=== PATIENT | male | born 1955 | race African-American/Black ===

== ENCOUNTER 2017-11-21 15:08 | Inpatient (IN) | payer OTHER ==
[~2017-11-21] VITALS: Ht 170.2 cm; Wt 74.4 kg
[~2017-11-21 15:08] MED LIST: AMLO10 PO; BUSP10TA PO; CYAN100017 PO; DOCU1CAP39 PO; FLUP1INJ IM; LISI-515 PO; METF500T PO; PANT40TA3 PO; POLY17S PO; POLY99.0 EACH EYE; PRAD150C PO; PRAV80TA2 PO; PROP80TA PO; RISP3 PO; TRIH2 PO
[2017-11-21 15:14] VITALS: BP 147/87; PULSE 95; RESP 17; TEMP 99.3; O2SAT 98
--- NOTE | 2017-11-21 15:39 | PD ---
HPI Chief Complaint: Altered Mental Status Time Seen by Provider: 15:27 Travel History International Travel<30 days: No Contact w/Intl Traveler<30days: No Traveled to known affect area: No History of Present Illness HPI [age]-year-old male with history of CAD, hypertension, COPD, A. fib, diabetes, presents to the emergency department from his senior living facility for evaluation of altered mental status. Patient has not been acting himself for the last 2-3 days. He has had less energy. He is more confused. Patient overall is a poor historian and does not recall any difference in his mentation. He knows that he isn't atonal at the hospital. He can tell since falling. He states he's been tired but really overall has no complaints. Denies any chest pain or tightness. No difficulty breathing. No report of recent fevers or chills. Patient has no other symptoms to report at this time. PFSH Past Medical History Anemia: Yes Arthritis: Yes Asthma: No Heart Rhythm Problems: Yes (a fib) Cancer: Yes (prostate ) Cardiovascular Problems: Yes High Cholesterol: Yes (TX WITH ZOCOR) Chemotherapy: Yes Chest Pain: No Congestive Heart Failure: No COPD: Yes Diabetes: Yes Diminished Hearing: No Endocrine: Yes GERD: Yes Genitourinary: Yes Hypertension: Yes Immune Disorder: No Implanted Vascular Access Dvce: No Kidney Stones: Yes Musculoskeletal: Yes Neurologic: No Psychiatric: No Reproductive: No Respiratory: Yes Sleep Apnea: No Past Surgical History Appendectomy: Yes Other Surgery: Yes (appendectomy and hernia repair) Social History Alcohol Use: No (unable to obtain ) Tobacco Use: No (unable to obtain ) Substance Use: No (unable to obtain ) Allergies-Medications (Allergen,Severity, Reaction): Coded Allergies: aspirin (Unverified Allergy, Severe, 05/21/17) chlorpromazine (Unverified Allergy, Unknown, 05/21/17) haloperidol (Unverified Allergy, Unknown, 05/21/17) Per sister in - Anita Taylor [phone]. Per patient, she manages his medications and administration for him. Reported Meds & Prescriptions Reported Meds & Active Scripts Active Artificial Tears Opth Drops (Polyvinyl Alcohol) 1.4% Soln 1 Drop EACH EYE TID 30 Days Polyethylene Glycol 3350 Powder (Polyethylene Glycol) 17 Gm Pow 17 Gm PO DAILY 30 Days Dok (Docusate Sodium) 100 Mg Cap 100 Mg PO BID 30 Days Norvasc (Amlodipine Besylate) 10 Mg Tab 10 Mg PO DAILY 30 Days Pradaxa (Dabigatran) 150 Mg Cap 150 Mg PO BID 30 Days Pantoprazole (Pantoprazole Sodium) 40 Mg Tab 40 Mg PO DAILY 30 Days Lisinopril 20 Mg Tab 20 Mg PO DAILY 30 Days Propranolol (Propranolol HCl) 80 Mg Tab 80 Mg PO Q6HR 30 Days Risperdal (Risperidone) 3 Mg Tab 3 Mg PO HS 30 Days Reported Simvastatin 10 Mg Tab 10 Mg PO DAILY Trihexyphenidyl (Trihexyphenidyl HCl) 2 Mg Tab 2 Mg PO TID Metformin (Metformin HCl) 500 Mg Tab 500 Mg PO DAILY With a meal Tenormin (Atenolol) 50 Mg Tab 50 Mg PO BID Procardia XL (Nifedipine) 60 Mg Tab 60 Mg PO DAILY Lisinopril 5 Mg Tab 5 Mg PO DAILY Lexapro (Escitalopram Oxalate) 10 Mg Tab 10 Mg PO DAILY Fluphenazine Decanoate Inj (Fluphenazine Decanoate) 125 Mg/5 Ml Inj 25 Mg IM Q21D Buspirone (Buspirone HCl) 10 Mg Tab 10 Mg PO BID Metformin (Metformin HCl) 500 Mg Tab 500 Mg PO DAILY With a meal Pravastatin 80 Mg Tab 80 Mg PO HS Trihexyphenidyl (Trihexyphenidyl HCl) 2 Mg Tab 2 Mg PO TID Review of Systems Except as stated in HPI: all other systems reviewed are Neg Physical Exam Narrative GENERAL: Well-nourished male patient, sitting up in bed in no acute distress. SKIN: Focused skin assessment warm/dry. HEAD: Atraumatic. Normocephalic. EYES: Pupils equal and round. No scleral icterus. No injection or drainage. ENT: No nasal bleeding or discharge. Mucous membranes pink and moist. NECK: Trachea midline. No JVD. CARDIOVASCULAR: Elevated rate and irregular rhythm. RESPIRATORY: No accessory muscle use. Coarse throughout, diminished bases. Rales and crackles with inspiratory wheeze. Breath sounds equal bilaterally. GASTROINTESTINAL: Abdomen soft, non-tender, nondistended. Hepatic and splenic margins not palpable. MUSCULOSKELETAL: No obvious deformities. No clubbing. No cyanosis. No edema. NEUROLOGICAL: Awake and alert. No obvious cranial nerve deficits. Motor grossly within normal limits. Normal speech. Data Data Last Documented VS Vital Signs Date Time Temp Pulse Resp B/P (MAP) Pulse Ox O2 Delivery O2 Flow Rate FiO2 11/21/17 19:45 86 20 160/99 (119) 99 Nasal Cannula 2.00 11/21/17 16:07 21 11/21/17 15:14 99.3 Orders Orders Electrocardiogram (11/21/17 15:38) Complete Blood Count With Diff (11/21/17 15:38) Comprehensive Metabolic Panel (11/21/17 15:38) Prothrombin Time / Inr (Pt) (11/21/17 15:38) Act Partial Throm Time (Ptt) (11/21/17 15:38) Lactic Acid Sepsis Protocol (11/21/17 15:38) Lipase (11/21/17 15:38) Ckmb (Isoenzyme) Profile (11/21/17 15:38) Troponin I (11/21/17 15:38) Urinalysis - C+S If Indicated (11/21/17 15:38) Influenzae A/B Antigen (11/21/17 15:38) Blood Culture (11/21/17 15:38) Chest, Single Ap (11/21/17 15:38) Blood Glucose (11/21/17 15:38) Ecg Monitoring (11/21/17 15:38) Iv Access Insert/Monitor (11/21/17 15:38) Oximetry (11/21/17 15:38) Oxygen Administration (11/21/17 15:38) Methylprednisolone So Succ Inj (Solumedr (11/21/17 16:00) Albuterol-Ipratropium Neb (Duoneb Neb) (11/21/17 16:00) Ceftriaxone Inj (Rocephin Inj) (11/21/17 16:15) Azithromycin Inj (Zithromax Inj) (11/21/17 16:15) Sodium Chlorid 0.9% 500 Ml Inj (Ns 500 M (11/21/17 16:30) CKMB (11/21/17 15:45) CKMB% (11/21/17 15:45) Ct Thorax/ Chest W Iv Contrast (11/21/17 ) Iohexol 350 Inj (Omnipaque 350 Inj) (11/21/17 19:04) Labs Laboratory Tests Test 11/21/17 15:45 11/21/17 16:20 11/21/17 19:23 White Blood Count 12.5 TH/MM3 Red Blood Count 3.47 MIL/MM3 Hemoglobin 9.5 GM/DL Hematocrit 29.3 % Mean Corpuscular Volume 84.4 FL Mean Corpuscular Hemoglobin 27.4 PG Mean Corpuscular Hemoglobin Concent 32.4 % Red Cell Distribution Width 16.1 % Platelet Count 1163 TH/MM3 Mean Platelet Volume 6.3 FL Neutrophils (%) (Auto) 79.1 % Lymphocytes (%) (Auto) 10.4 % Monocytes (%) (Auto) 9.4 % Eosinophils (%) (Auto) 0.3 % Basophils (%) (Auto) 0.8 % Neutrophils # (Auto) 9.9 TH/MM3 Lymphocytes # (Auto) 1.3 TH/MM3 Monocytes # (Auto) 1.2 TH/MM3 Eosinophils # (Auto) 0.0 TH/MM3 Basophils # (Auto) 0.1 TH/MM3 CBC Comment DIFF FINAL Differential Comment Prothrombin Time 11.7 SEC Prothromb Time International Ratio 1.2 RATIO Activated Partial Thromboplast Time 26.8 SEC Blood Urea Nitrogen 13 MG/DL Creatinine 1.31 MG/DL Random Glucose 293 MG/DL Total Protein 6.7 GM/DL Albumin 2.2 GM/DL Calcium Level 8.3 MG/DL Alkaline Phosphatase 152 U/L Aspartate Amino Transf (AST/SGOT) 22 U/L Alanine Aminotransferase (ALT/SGPT) 17 U/L Total Bilirubin 0.2 MG/DL Sodium Level 135 MEQ/L Potassium Level 3.7 MEQ/L Chloride Level 100 MEQ/L Carbon Dioxide Level 22.9 MEQ/L Anion Gap 12 MEQ/L Estimat Glomerular Filtration Rate 68 ML/MIN Lactic Acid Level 4.2 mmol/L Total Creatine Kinase 162 U/L Creatine Kinase MB 2.8 NG/ML Troponin I LESS THAN 0.02 NG/ML Lipase 185 U/L Urine Color YELLOW Urine Turbidity CLEAR Urine pH 6.0 Urine Specific [place] 1.021 Urine Protein 30 mg/dL Urine Glucose (UA) NEG mg/dL Urine Ketones NEG mg/dL Urine Occult Blood NEG Urine Nitrite NEG Urine Bilirubin NEG Urine Urobilinogen LESS THAN 2.0 MG/DL Urine Leukocyte Esterase NEG Urine RBC 1 /hpf Urine WBC 4 /hpf Urine Squamous Epithelial Cells <1 /hpf Urine Hyaline Casts 22 /lpf Urine Mucus MANY /lpf Microscopic Urinalysis Comment CULT NOT INDICATED MDM Medical Decision Making Medical Screen Exam Complete: Yes Emergency Medical Condition: Yes Medical Record Reviewed: Yes Differential Diagnosis Pneumonia versus influenza versus neoplasm versus electrolyte abnormality versus CHF versus sepsis versus UTI Narrative Course 62-year-old male presents to emergency department for evaluation of altered mental status. Patient appears nontoxic. He does have coarse breath sounds throughout with scattered rales and rhonchi inspiratory wheeze. Patient is given Solu-Medrol and DuoNeb treatments. He has a low-grade temperature and is mildly tachycardic. Laboratory Tests Test 11/21/17 15:45 11/21/17 16:20 11/21/17 19:23 White Blood Count 12.5 TH/MM3 Red Blood Count 3.47 MIL/MM3 Hemoglobin 9.5 GM/DL Hematocrit 29.3 % Mean Corpuscular Volume 84.4 FL Mean Corpuscular Hemoglobin 27.4 PG Mean Corpuscular Hemoglobin Concent 32.4 % Red Cell Distribution Width 16.1 % Platelet Count 1163 TH/MM3 Mean Platelet Volume 6.3 FL Neutrophils (%) (Auto) 79.1 % Lymphocytes (%) (Auto) 10.4 % Monocytes (%) (Auto) 9.4 % Eosinophils (%) (Auto) 0.3 % Basophils (%) (Auto) 0.8 % Neutrophils # (Auto) 9.9 TH/MM3 Lymphocytes # (Auto) 1.3 TH/MM3 Monocytes # (Auto) 1.2 TH/MM3 Eosinophils # (Auto) 0.0 TH/MM3 Basophils # (Auto) 0.1 TH/MM3 CBC Comment DIFF FINAL Differential Comment Prothrombin Time 11.7 SEC Prothromb Time International Ratio 1.2 RATIO Activated Partial Thromboplast Time 26.8 SEC Blood Urea Nitrogen 13 MG/DL Creatinine 1.31 MG/DL Random Glucose 293 MG/DL Total Protein 6.7 GM/DL Albumin 2.2 GM/DL Calcium Level 8.3 MG/DL Alkaline Phosphatase 152 U/L Aspartate Amino Transf (AST/SGOT) 22 U/L Alanine Aminotransferase (ALT/SGPT) 17 U/L Total Bilirubin 0.2 MG/DL Sodium Level 135 MEQ/L Potassium Level 3.7 MEQ/L Chloride Level 100 MEQ/L Carbon Dioxide Level 22.9 MEQ/L Anion Gap 12 MEQ/L Estimat Glomerular Filtration Rate 68 ML/MIN Total Creatine Kinase 162 U/L Creatine Kinase MB 2.8 NG/ML Troponin I LESS THAN 0.02 NG/ML Lipase 185 U/L Urine Color YELLOW Urine Turbidity CLEAR Urine pH 6.0 Urine Specific [place] 1.021 Urine Protein 30 mg/dL Urine Glucose (UA) NEG mg/dL Urine Ketones NEG mg/dL Urine Occult Blood NEG Urine Nitrite NEG Urine Bilirubin NEG Urine Urobilinogen LESS THAN 2.0 MG/DL Urine Leukocyte Esterase NEG Urine RBC 1 /hpf Urine WBC 4 /hpf Urine Squamous Epithelial Cells <1 /hpf Urine Hyaline Casts 22 /lpf Urine Mucus MANY /lpf Microscopic Urinalysis Comment CULT NOT INDICATED Hait[place] lactic acid is 4.6. He has slightly elevated white count 12.5. Chest x-ray shows a large right pleural effusion with associated diffuse airspace disease throughout the right lung. There is a 4.6 cm masslike opacity in the right upper lung zone in the region of smaller mass noted on prior examination. I have discussed the patient with my attending physician who has reviewed the findings and assess the patient. A call has some place to [facility] for admission. I spoke with Dr. Tejada who requests that I admit the patient to the intensive this. I spoke with Dr. angulo, research manufacturing operator who states the patient does not meet intensive care criteria and the patient will need to be admitted to [facility]. Dr. Tejada is made aware of this and requests that I removed [address] imaging and consult IR if necessary emergently prior to contacting hospitalist for admission. Last Impressions Chest X-Ray 11/21/17 1538 Signed Impressions: Service Date/Time: November 15:52 - CONCLUSION: 1. Large right pleural effusion with associated diffuse airspace disease throughout the right lung. 2. 4.6 cm masslike opacity in the right upper lung zone in region of smaller mass noted on prior exam. This likely reflects interval enlargement of this mass. Consider CT examination for further evaluation as indicated. Walter Covarrubias MD Chest CT 11/21/17 0000 Signed Impressions: Service Date/Time: November 18:56 - CONCLUSION: 1. Progression of right hilar mass since July 2016 with encasement of the central bronchi as above and complete obstruction of the right upper lobe bronchus. There is also compression of the superior vena cava and azygos vein and moderate right effusion and partial atelectasis of the right lung as above. Small pericardial effusion. Chencho Stevenson MD CT imaging is reviewed. Patient remained stable. I do not think emergent drainage of this effusion is necessary. Call placed to [facility] hospitalist for admission. Sepsis Criteria SIRS Criteria (2 or more): Heart rate over 90, WBC > 86368, < 4000 or > 10% bands Sepsis Criteria (SIRS+source): Infect source susp/known Severe Sepsis (+one): Lactate >2 Diagnosis Primary Impression: Altered mental status Qualified Codes: R41.0 - Disorientation, unspecified Additional Impressions: Pleural effusion, right Pulmonary mass Severe sepsis Admitting Information Admitting Physician Requests: Admit Condition: Stable Neena Lopez Nov 21, 2017 15:39
[2017-11-21 15:55] VITALS: O2SAT 100
[2017-11-21] MEDS ORDERED: methylPREDNISolone SOD SUCC 125 MG/2 ML VIAL IV PUSH ONE (16:00)
[2017-11-21] MEDS: RESP: ALBUTEROL 2.5 MG/IPRATROPIUM 0.5 MG NEB (SCH) INH (16:06)
[2017-11-21 16:07] VITALS: O2SAT 98
[2017-11-21] MEDS ORDERED: cefTRIAXone INJ 1,000 MG in SODIUM CHLORIDE 0.9% INJ 100 ML IV ONE (16:15)
[2017-11-21] MEDS ORDERED: AZITHROMYCIN INJ 500 MG in SODIUM CHLOR 0.9% 250 ML INJ 250 ML IV ONE (16:15)
[2017-11-21 16:26] LABS: AUTOMATED NEUTROPHIL # 9.9 TH/MM3 (1.8-7.7); BASOPHIL # 0.1 TH/MM3 (0-0.2); BASOPHIL % 0.8 % (0.0-2.0); EOSINOPHIL % 0.3 % (0.0-4.0); HEMATOCRIT 29.3 % (39.0-51.0); HEMOGLOBIN 9.5 GM/DL (13.0-17.0); LYMPH % 10.4 % (9.0-44.0); LYMPHOCYTE # 1.3 TH/MM3 (1.0-4.8); MEAN CELL VOLUME 84.4 FL (80.0-100.0); MEAN CORPUSCULAR HEMOGLOBIN 27.4 PG (27.0-34.0); MEAN CORPUSCULAR HGB CONC 32.4 % (32.0-36.0); MEAN PLATELET VOLUME 6.3 FL (7.0-11.0); MONO % 9.4 % (0.0-8.0); MONOCYTE # 1.2 TH/MM3 (0-0.9); NEUT % 79.1 % (16.0-70.0); PLATELET COUNT 1163 TH/MM3 (150-450); RED BLOOD COUNT 3.47 MIL/MM3 (4.50-5.90); RED CELL DISTRIBUTION WIDTH 16.1 % (11.6-17.2); WHITE BLOOD COUNT 12.5 TH/MM3 (4.0-11.0)
[2017-11-21] MEDS ORDERED: SODIUM CHLORID 0.9% 500 ML INJ 500 ML IV ONE (16:30)
--- NOTE | 2017-11-21 16:35 | RADRPT ---
EXAM DATE/TIME: 11/21/2017 15:52 [facility] COMPARISON: CHEST SINGLE AP, July 27, 2016, 5:19. INDICATIONS : Chest pain MEDICAL HISTORY : Hypertension. Diabetes mellitus type II. Chronic obstructive pulmonary d isease SURGICAL HISTORY : CABG. ENCOUNTER: Initial ACUITY: 1 day PAIN SCORE: 8/10 LOCATION: chest FINDINGS: Large right pleural effusion with associated diffuse patchy airspace disease throughout the right mo g. There is a masslike opacity in the right upper lung zone measuring 4.6 cm. Left lung is clear. Car diomediastinal contours are within normal limits. Remainder the exam is unchanged. CONCLUSION: 1. Large right pleural effusion with associated diffuse airspace disease throughout the right lung. 2. 4.6 cm masslike opacity in the right upper lung zone in region of smaller mass noted on prior exam . This likely reflects interval enlargement of this mass. Consider CT examination for further evaluat ion as indicated. Walter Covarrubias MD on November 21, 2017 at 16:30 Board Certified Radiologist. This report was verified electronically.
[2017-11-21 16:43] LABS: INTERNATIONAL NORMALIZED RATIO 1.2 RATIO; PROTHROMBIN TIME - PATIENT 11.7 SEC (9.8-11.6)
[2017-11-21 16:50] LABS: ALBUMIN 2.2 GM/DL (3.4-5.0); AST (GOT) 22 U/L (15-37); BICARBONATE 22.9 MEQ/L (21.0-32.0); BLOOD UREA NITROGEN 13 MG/DL (7-18); CALCIUM 8.3 MG/DL (8.5-10.1); CHLORIDE 100 MEQ/L (98-107); CREATININE 1.31 MG/DL (0.60-1.30); GLOMERULAR FILTRATION RATE 68 ML/MIN (>89); GLUCOSE,RANDOM 293 MG/DL (74-106); SODIUM (NA) 135 MEQ/L (136-145)
[2017-11-21 16:51] LABS: ALT (GPT) 17 U/L (12-78); LACTIC ACID SEPSIS PROTOCOL 4.2 mmol/L (0.4-2.0)
[2017-11-21 16:55] LABS: ALKALINE PHOSPHATASE 152 U/L (45-117); TOTAL BILIRUBIN ADULT 0.2 MG/DL (0.2-1.0); TOTAL PROTEIN 6.7 GM/DL (6.4-8.2); TROPONIN I LESS THAN 0.02 NG/ML (0.02-0.05)
[2017-11-21 17:01] LABS: BILIRUBIN, URINE NEG (NEG); BLOOD, URINE NEG (NEG); GLUCOSE,URINE NEG (NEG); HYALINE CAST, URINE 22 /lpf (RARE); KETONE, URINE NEG (NEG); MUCUS URINE MANY /lpf (OCC); NITRITE,URINE NEG (NEG); SQUAMOUS EPITHELIAL CELL URINE <1 /hpf (0-5); URINE COLOR YELLOW (YELLW/STRAW); URINE LEUKOCYTE ESTERASE NEG (NEG)
[2017-11-21 18:01] VITALS: BP 153/83; PULSE 93; RESP 17; O2SAT 96
--- NOTE | 2017-11-21 18:20 | PD ---
Physical Exam Date Seen by Provider: Nov 21, 2017 Time Seen by Provider: 16:00 Narrative I, Dr. Whiteside, have reviewed the advance practice practitioner's documentation and am in agreement, met with the patient face to face, made the diagnosis, and the medical decision making was done by me. *My assessment and Findings: Patient seen and evaluated with nurse practitioner , please see nurse practitioner for further details. He apparently has been more disoriented at his facility, and on evaluation he has significant wheezing , decreased breath sounds on the right compared to the left. He is not able to give me much further history. EKG shows sinus rhythm with no signs of acute ST elevations or depressions. Laboratory Tests Test 11/21/17 15:45 11/21/17 16:20 White Blood Count 12.5 TH/MM3 (4.0-11.0) Red Blood Count 3.47 MIL/MM3 (4.50-5.90) Hemoglobin 9.5 GM/DL (13.0-17.0) Hematocrit 29.3 % (39.0-51.0) Platelet Count 1163 TH/MM3 (150-450) Mean Platelet Volume 6.3 FL (7.0-11.0) Neutrophils (%) (Auto) 79.1 % (16.0-70.0) Monocytes (%) (Auto) 9.4 % (0.0-8.0) Neutrophils # (Auto) 9.9 TH/MM3 (1.8-7.7) Monocytes # (Auto) 1.2 TH/MM3 (0-0.9) Prothrombin Time 11.7 SEC (9.8-11.6) Creatinine 1.31 MG/DL (0.60-1.30) Random Glucose 293 MG/DL (74-106) Albumin 2.2 GM/DL (3.4-5.0) Calcium Level 8.3 MG/DL (8.5-10.1) Alkaline Phosphatase 152 U/L (45-117) Sodium Level 135 MEQ/L (136-145) Estimat Glomerular Filtration Rate 68 ML/MIN (>89) Lactic Acid Level 4.2 mmol/L (0.4-2.0) Troponin I LESS THAN 0.02 NG/ML Urine Protein 30 mg/dL (NEG-TRACE) Urine Mucus MANY /lpf (OCC) Last 24 hours Impressions Chest X-Ray 11/21/17 1538 Signed Impressions: Service Date/Time: November 15:52 - CONCLUSION: 1. Large right pleural effusion with associated diffuse airspace disease throughout the right lung. 2. 4.6 cm masslike opacity in the right upper lung zone in region of smaller mass noted on prior exam. This likely reflects interval enlargement of this mass. Consider CT examination for further evaluation as indicated. Walter Covarrubias MD There is a large right-sided pleural effusion. There is a questionable masslike opacity in the right upper lung zone, and CAT scan was ordered for further evaluation. Patient has significant leukocytosis. IV fluids and antibiotics were ordered for the patient for concerns of pneumonia and parapneumonic effusion. Patient will need further evaluation. At this point, plan would be to admit the patient. Case was briefly discussed with Dr. Guevara of hospitalist service who states that he would consider ICU admit. Case was also discussed with Dr. Garvey but he at this time defers to hospitalist admission rather than ICU admission since patient appears fairly stable otherwise. Plan to admit the patient after CAT scan reveals any further pathology. Data Data Last Documented VS Vital Signs Date Time Temp Pulse Resp B/P (MAP) Pulse Ox O2 Delivery O2 Flow Rate FiO2 11/21/17 18:01 93 17 153/83 (106) 96 Room Air 11/21/17 16:07 21 11/21/17 15:14 99.3 Orders Orders Electrocardiogram (11/21/17 15:38) Complete Blood Count With Diff (11/21/17 15:38) Comprehensive Metabolic Panel (11/21/17 15:38) Prothrombin Time / Inr (Pt) (11/21/17 15:38) Act Partial Throm Time (Ptt) (11/21/17 15:38) Lactic Acid Sepsis Protocol (11/21/17 15:38) Lipase (11/21/17 15:38) Ckmb (Isoenzyme) Profile (11/21/17 15:38) Troponin I (11/21/17 15:38) Urinalysis - C+S If Indicated (11/21/17 15:38) Influenzae A/B Antigen (11/21/17 15:38) Blood Culture (11/21/17 15:38) Chest, Single Ap (11/21/17 15:38) Blood Glucose (11/21/17 15:38) Ecg Monitoring (11/21/17 15:38) Iv Access Insert/Monitor (11/21/17 15:38) Oximetry (11/21/17 15:38) Oxygen Administration (11/21/17 15:38) Methylprednisolone So Succ Inj (Solumedr (11/21/17 16:00) Albuterol-Ipratropium Neb (Duoneb Neb) (11/21/17 16:00) Ceftriaxone Inj (Rocephin Inj) (11/21/17 16:15) Azithromycin Inj (Zithromax Inj) (11/21/17 16:15) Sodium Chlorid 0.9% 500 Ml Inj (Ns 500 M (11/21/17 16:30) CKMB (11/21/17 15:45) CKMB% (11/21/17 15:45) Ct Thorax/ Chest W Iv Contrast (11/21/17 ) Iohexol 350 Inj (Omnipaque 350 Inj) (11/21/17 19:04) Labs Laboratory Tests Test 11/21/17 15:45 11/21/17 16:20 White Blood Count 12.5 TH/MM3 Red Blood Count 3.47 MIL/MM3 Hemoglobin 9.5 GM/DL Hematocrit 29.3 % Mean Corpuscular Volume 84.4 FL Mean Corpuscular Hemoglobin 27.4 PG Mean Corpuscular Hemoglobin Concent 32.4 % Red Cell Distribution Width 16.1 % Platelet Count 1163 TH/MM3 Mean Platelet Volume 6.3 FL Neutrophils (%) (Auto) 79.1 % Lymphocytes (%) (Auto) 10.4 % Monocytes (%) (Auto) 9.4 % Eosinophils (%) (Auto) 0.3 % Basophils (%) (Auto) 0.8 % Neutrophils # (Auto) 9.9 TH/MM3 Lymphocytes # (Auto) 1.3 TH/MM3 Monocytes # (Auto) 1.2 TH/MM3 Eosinophils # (Auto) 0.0 TH/MM3 Basophils # (Auto) 0.1 TH/MM3 CBC Comment DIFF FINAL Differential Comment Prothrombin Time 11.7 SEC Prothromb Time International Ratio 1.2 RATIO Activated Partial Thromboplast Time 26.8 SEC Blood Urea Nitrogen 13 MG/DL Creatinine 1.31 MG/DL Random Glucose 293 MG/DL Total Protein 6.7 GM/DL Albumin 2.2 GM/DL Calcium Level 8.3 MG/DL Alkaline Phosphatase 152 U/L Aspartate Amino Transf (AST/SGOT) 22 U/L Alanine Aminotransferase (ALT/SGPT) 17 U/L Total Bilirubin 0.2 MG/DL Sodium Level 135 MEQ/L Potassium Level 3.7 MEQ/L Chloride Level 100 MEQ/L Carbon Dioxide Level 22.9 MEQ/L Anion Gap 12 MEQ/L Estimat Glomerular Filtration Rate 68 ML/MIN Lactic Acid Level 4.2 mmol/L Total Creatine Kinase 162 U/L Creatine Kinase MB 2.8 NG/ML Troponin I LESS THAN 0.02 NG/ML Lipase 185 U/L Urine Color YELLOW Urine Turbidity CLEAR Urine pH 6.0 Urine Specific [place] 1.021 Urine Protein 30 mg/dL Urine Glucose (UA) NEG mg/dL Urine Ketones NEG mg/dL Urine Occult Blood NEG Urine Nitrite NEG Urine Bilirubin NEG Urine Urobilinogen LESS THAN 2.0 MG/DL Urine Leukocyte Esterase NEG Urine RBC 1 /hpf Urine WBC 4 /hpf Urine Squamous Epithelial Cells <1 /hpf Urine Hyaline Casts 22 /lpf Urine Mucus MANY /lpf Microscopic Urinalysis Comment CULT NOT INDICATED MDM Medical Record Reviewed: Yes Supervised Visit with JACYEE: Yes Diagnosis Primary Impression: Altered mental status Additional Impressions: Lactic acidosis Pleural effusion, right Admitting Information Admitting Physician Requests: Admit Juan Carlos Whiteside MD Nov 21, 2017 18:20
[2017-11-21] MEDS ORDERED: TRIH2 PO (18:38)
[2017-11-21] MEDS ORDERED: ATEN1TAB74 PO (18:38)
[2017-11-21] MEDS ORDERED: NIFE1TAB86 PO (18:38)
[2017-11-21] MEDS ORDERED: SIMV10TA PO (18:38)
[2017-11-21] MEDS ORDERED: METF500T PO (18:38)
[2017-11-21] MEDS ORDERED: LISI-519 PO (18:38)
[2017-11-21] MEDS ORDERED: LEXA10TA PO (18:38)
[2017-11-21] MEDS ORDERED: IOHEXOL 350 MG/ML 10 ML VIAL (for RAD DIAG) IVCONTRAST ONE (19:04)
--- NOTE | 2017-11-21 19:15 | RADRPT ---
EXAM DATE/TIME: 11/21/2017 18:56 [facility] COMPARISON: CT PULMONARY ANGIOGRAM, July 24, 2016, 9:42. INDICATIONS : Short of breath, pleural effusion. IV CONTRAST: 65 cc Omnipaque 350 (iohexol) IV RADIATION DOSE: 8.63 CTDIvol (mGy) MEDICAL HISTORY : Cardiovascular disease. Hypertension. Chronic obstructive pulmonary disease.Diabetes, Prostate cancer . SURGICAL HISTORY : None. ENCOUNTER: Initial ACUITY: 3 days PAIN SCALE: 7/10 LOCATION: Bilateral chest TECHNIQUE: Volumetric scanning of the chest was performed. Using automated exposure control and adjustment of t he mA and/or kV according to patient size, radiation dose was kept as low as reasonably achievable to obtain optimal diagnostic quality images. DICOM format image data is available electronically for review and comparison. Follow-up recommendations for detected pulmonary nodules are based at a minimum on nodule size and pa tient risk factors according to Fleischner Society Guidelines. FINDINGS: Comparison is July 2016. There is a large mass with epicenter in the right hilar region measuring up to 9.3 x 5.9 cm completely encasing the right mainstem bronchus and also the lobar bronchi with ob struction of the right upper lobe bronchus and marked narrowing of the middle lobe and lower lobe bro nchi on the right. The mass crosses midline and partially encases the left mainstem bronchus and ante rior aspect of the aorta. There is progression of tumor since July 2016. Moderate to severe mojica ry calcifications. There is a moderate-sized right pleural effusion with partial atelectasis of the right lung especiall y right upper lobe. Left lung remains relatively clear. There is compression on the superior vena cava and azygos vein but they do not occlude the only obstr ucted. No acute findings in the upper abdomen. CONCLUSION: 1. Progression of right hilar mass since July 2016 with encasement of the central bronchi as above and complete obstruction of the right upper lobe bronchus. There is also compression of the superior vena cava and azygos vein and moderate right effusion and partial atelectasis of the right lung as a tom. Small pericardial effusion. Chencho Stevenson MD on November 21, 2017 at 19:08 Board Certified Radiologist. This report was verified electronically.
[2017-11-21 19:45] VITALS: BP 160/99; PULSE 86; RESP 20; O2SAT 99
--- NOTE | 2017-11-21 23:28 | HHI.HP ---
[facility] Unknown Admission Diagnosis AMS; R Pleural effusion; R lung mass Diagnoses: Travel History International Travel<30 Days: No Contact w/Intl Traveler <30 Da: No Traveled to Known Affected Are: No History of Present Illness History from ER communication, patient himself, and review of medical records. Patient states that he was brought to hospital because he was not where he used to be. He has been confused. He reports he lives at [facility]. On specific review of system, patient reports of shortness of breath for 1 week duration. Reports he has been coughing a lot. Subjective fevers and chills. Sputum was yellow in color. Vomited twice in the past one week. No diarrhea. No blood in his stool or urine. Denies any falls or syncope. Patient however has baseline schizoaffective disorder per records. When asked about his medical conditions history, he really was not able to give the true history. Review of Systems ROS Limitations: Poor Historian Except as stated in HPI: all other systems reviewed are Neg Past Family Social History Past Medical History Hypertension Diabetes COPD Schizoaffective disorder Hyperlipidemia Dementia Past Surgical History Appendectomy Hernia repair Allergies: Coded Allergies: aspirin (Unverified Allergy, Severe, 05/21/17) chlorpromazine (Unverified Allergy, Unknown, 05/21/17) haloperidol (Unverified Allergy, Unknown, 05/21/17) Per sister in - Anita Taylor [phone]. Per patient, she manages his medications and administration for him. Family History none that he knows of Social History used to smoke, quit 14yrs ago denies etoh or drug abuse Physical Exam Vital Signs Vital Signs Date Time Temp Pulse Resp B/P (MAP) Pulse Ox O2 Delivery O2 Flow Rate FiO2 11/21/17 19:45 86 20 160/99 (119) 99 Nasal Cannula 2.00 11/21/17 18:01 93 17 153/83 (106) 96 Room Air 11/21/17 16:07 98 21 11/21/17 15:55 100 Room Air 11/21/17 15:55 100 Room Air 2/15/18 15:20 98 Room Air 11/21/17 15:14 99.3 95 17 147/87 (658) 98 Physical Exam GENERAL: This is a middle-aged man, looks quite comfortable except that he is constantly coughing. Saturating 95% on 2 L nasal cannula. Somewhat slow to respond but is able to give some history. SKIN: No rashes, ecchymoses or lesions. Cool and dry. HEAD: Atraumatic. Normocephalic. No temporal or scalp tenderness. EYES: No scleral icterus. No injection or drainage. ENT: Nose without bleeding, purulent drainage or septal hematoma. Airway patent. NECK: Trachea midline. No JVD Supple, nontender, no meningeal signs. CARDIOVASCULAR: Regular rate and rhythm without murmurs, gallops, or rubs. RESPIRATORY: Decreased air entry on the left. No laurie rales or wheezing. GASTROINTESTINAL: Abdomen soft, non-tender, nondistended. No guarding. MUSCULOSKELETAL: Extremities without clubbing, cyanosis, or edema. No calf tenderness. Normal speech though difficult to understand Laboratory Laboratory Tests Test 11/21/17 15:45 11/21/17 16:20 11/21/17 19:23 White Blood Count 12.5 Red Blood Count 3.47 Hemoglobin 9.5 Hematocrit 29.3 Mean Corpuscular Volume 84.4 Mean Corpuscular Hemoglobin 27.4 Mean Corpuscular Hemoglobin Concent 32.4 Red Cell Distribution Width 16.1 Platelet Count 1163 Mean Platelet Volume 6.3 Neutrophils (%) (Auto) 79.1 Lymphocytes (%) (Auto) 10.4 Monocytes (%) (Auto) 9.4 Eosinophils (%) (Auto) 0.3 Basophils (%) (Auto) 0.8 Neutrophils # (Auto) 9.9 Lymphocytes # (Auto) 1.3 Monocytes # (Auto) 1.2 Eosinophils # (Auto) 0.0 Basophils # (Auto) 0.1 CBC Comment DIFF FINAL Differential Comment Prothrombin Time 11.7 Prothromb Time International Ratio 1.2 Activated Partial Thromboplast Time 26.8 Blood Urea Nitrogen 13 Creatinine 1.31 Random Glucose 293 Total Protein 6.7 Albumin 2.2 Calcium Level 8.3 Alkaline Phosphatase 152 Aspartate Amino Transf (AST/SGOT) 22 Alanine Aminotransferase (ALT/SGPT) 17 Total Bilirubin 0.2 Sodium Level 135 Potassium Level 3.7 Chloride Level 100 Carbon Dioxide Level 22.9 Anion Gap 12 Estimat Glomerular Filtration Rate 68 Lactic Acid Level 4.2 1.9 Total Creatine Kinase 162 Creatine Kinase MB 2.8 Troponin I LESS THAN 0.02 Lipase 185 Urine Color YELLOW Urine Turbidity CLEAR Urine pH 6.0 Urine Specific [place] 1.021 Urine Protein 30 Urine Glucose (UA) NEG Urine Ketones NEG Urine Occult Blood NEG Urine Nitrite NEG Urine Bilirubin NEG Urine Urobilinogen LESS THAN 2.0 Urine Leukocyte Esterase NEG Urine RBC 1 Urine WBC 4 Urine Squamous Epithelial Cells <1 Urine Hyaline Casts 22 Urine Mucus MANY Microscopic Urinalysis Comment CULT NOT INDICATED Date/Time Source Procedure Growth Status 11/21/17 15:55 Blood Peripheral Aerobic Blood Culture Pending Received 11/21/17 15:55 Blood Peripheral Anaerobic Blood Culture Pending Received 11/21/17 15:15 Nasal Washing Influenza Types A,B Antigen (CRISTHIAN) - Final NEGATIVE FOR FLU A AND B ANTIGEN.... Complete Result Diagram: 11/21/17 1545 11/21/17 1545 Imaging Last 48 hours Impressions Chest X-Ray 11/21/17 1538 Signed Impressions: Service Date/Time: November 15:52 - CONCLUSION: 1. Large right pleural effusion with associated diffuse airspace disease throughout the right lung. 2. 4.6 cm masslike opacity in the right upper lung zone in region of smaller mass noted on prior exam. This likely reflects interval enlargement of this mass. Consider CT examination for further evaluation as indicated. Walter Covarrubias MD Chest CT 11/21/17 0000 Signed Impressions: Service Date/Time: November 18:56 - CONCLUSION: 1. Progression of right hilar mass since July 2016 with encasement of the central bronchi as above and complete obstruction of the right upper lobe bronchus. There is also compression of the superior vena cava and azygos vein and moderate right effusion and partial atelectasis of the right lung as above. Small pericardial effusion. Chencho Stevenson MD Caprini VTE Risk Assessment Caprini VTE Risk Assessment: Mod/High Risk (score >= 2) Caprini Risk Assessment Model Point Value = 1 Point Value = 2 Point Value = 3 Point Value = 5 Age 41-60 Minor surgery BMI > 25 kg/m2 Swollen legs Varicose veins or History of unexplained or recurrent spontaneous Oral contraceptives or hormone replacement Sepsis (< 1 month) Serious lung disease, including pneumonia (< 1 month) Abnormal pulmonary function Acute myocardial infarction Congestive heart failure (< 1 month) History of inflammatory bowel disease Medical patient at bed rest Age 61-74 Arthroscopic surgery Major open surgery (> 45 min) Laparoscopic surgery (> 45 min) Malignancy Confined to bed (> 72 hours) Immobilizing plaster cast Central venous access Age >= 75 History of VTE Family history of VTE Factor V Leiden Prothrombin [id number] Lupus anticoagulant Anticardiolipin antibodies Elevated serum homocysteine Heparin-induced thrombocytopenia Other congenital or acquired thrombophilia Stroke (< 1 month) Elective arthroplasty Hip, pelvis, or leg fracture Acute spinal cord injury (< 1 month) Prophylaxis Regimen Total Risk Factor Score Risk Level Prophylaxis Regimen 0-1 Low Early ambulation 2 Moderate Order ONE of the following: *Sequential Compression Device (SCD) *Heparin 5000 units SQ BID 3-4 Higher Order ONE of the following medications: *Heparin 5000 units SQ TID *Enoxaparin/Lovenox 40 mg SQ daily (WT < 150 kg, CrCl > 30 mL/min) *Enoxaparin/Lovenox 30 mg SQ daily (WT < 150 kg, CrCl > 10-29 mL/min) *Enoxaparin/Lovenox 30 mg SQ BID (WT < 150 kg, CrCl > 30 mL/min) AND/OR *Sequential Compression Device (SCD) 5 or more Highest Order ONE of the following medications: *Heparin 5000 units SQ TID (Preferred with Epidurals) *Enoxaparin/Lovenox 40 mg SQ daily (WT < 150 kg, CrCl > 30 mL/min) *Enoxaparin/Lovenox 30 mg SQ daily (WT < 150 kg, CrCl > 10-29 mL/min) *Enoxaparin/Lovenox 30 mg SQ BID (WT < 150 kg, CrCl > 30 mL/min) AND *Sequential Compression Device (SCD) Assessment and Plan Assessment and Plan Impression: Pneumonia postobstructive. Right bronchus occlusion Right lung mass likely underlying malignancy Lactic acid acidosis Leukocytosis with left shift Hypertension Diabetes COPD Schizoaffective disorder Hyperlipidemia Dementia Plan: Oxygen supplementation. Patient received Rocephin and azithromycin in the ER. We'll start patient on Zosyn/ vanco Continue nebulizers. Oxygen supplementation Steroids IV And pulmonary consult. We'll follow lactic acid level with IV hydration. Hold metformin. We'll monitor fingersticks and sliding scale coverage. Pulmonary consult for possible bronchoscopy. DVT prophylaxis with Lovenox. Med reconciliation Discussed Condition With patient, nursing staff Physician Certification 2 Midnight Certification Type: Admission for Inpatient Services Order for Inpatient Services The services are ordered in accordance with Medicare regulations or non- Medicare payer requirements, as applicable. In the case of services not specified as inpatient-only, they are appropriately provided as inpatient services in accordance with the 2-midnight benchmark. Estimated LOS (days): 3 days is the estimated time the patient will need to remain in the hospital, assuming treatment plan goals are met and no additional complications. Post-Hospital Plan: Longterm/[facility] Dayron Mccollum MD Nov 21, 2017 23:28
[2017-11-21 23:35] VITALS: BP 171/90; PULSE 88; RESP 17; O2SAT 99
[2017-11-22] VITALS (11 sets, daily range): BP systolic 111–167; BP diastolic 73–102; PULSE 81–95; RESP 18–28; TEMP 97.4–98.9; O2SAT 92–100
[2017-11-22] MEDS ORDERED: Vancomycin Consult Pharmacy 1 EA OTHER SCH (00:15)
[2017-11-22] MEDS ORDERED: NALOXONE HCL 0.4 MG/ML AMP IV PUSH PRN (00:15)
[2017-11-22] MEDS ORDERED: SODIUM CHLORIDE 0.9% FLUSH 10 ML FLUSH IV FLUSH PRN (00:15)
[2017-11-22] MEDS ORDERED: SIMV20TA PO (01:04)
[2017-11-22] MEDS ORDERED: METF500T PO (01:04)
[2017-11-22] MEDS ORDERED: RISP3 PO (01:04)
[2017-11-22] MEDS: PANTOPRAZOLE SODIUM 40 MG VIAL IV PUSH SCH ×2 (01:54→12:25)
[2017-11-22] MEDS: PIPERACIL-TAZO 4.5 GM PREMIX 100 ML IV SCH ×4 (02:00→21:10)
[2017-11-22] MEDS ORDERED: VANCOMYCIN INJ 1,750 MG in SODIUM CHLORID 0.9% 500 ML INJ 500 ML IV ONE (03:00)
[2017-11-22] MEDS ORDERED: ENALAPRILAT 2.5 MG/2 ML VIAL IV PUSH PRN (03:15)
[2017-11-22] MEDS: RESP: ALBUTEROL 2.5 MG/IPRATROPIUM 0.5 MG NEB (SCH) NEB ×4 (04:00→21:09)
[2017-11-22] MEDS: methylPREDNISolone SOD SUCC 40 MG/1 ML VIAL IV PUSH SCH ×3 (06:21→21:09)
[2017-11-22] MEDS: SODIUM CHLORIDE 0.9% FLUSH 10 ML FLUSH IV FLUSH SCH ×2 (08:53→21:10)
[2017-11-22] MEDS: busPIRone HCL 10 MG TAB PO SCH ×2 (08:54→21:10)
[2017-11-22] MEDS: TRIHEXYPHENIDYL HCL 2 MG TAB PO SCH ×3 (08:54→17:25)
[2017-11-22] MEDS: ARTIFICIAL TEARS OPTH SOLN 15 ML BTL EACH EYE SCH ×3 (08:55→17:26)
[2017-11-22] MEDS: ENOXAPARIN SODIUM 40 MG/0.4 ML SYRINGE SQ SCH (08:55)
[2017-11-22] MEDS: DOCUSATE SODIUM 100 MG CAP PO SCH ×2 (08:56→21:10)
[2017-11-22] MEDS: NIFEdipine 60 MG SUSTAINED RELEASE TAB PO SCH (08:56)
[2017-11-22] MEDS: ATENOLOL 50 MG TAB PO SCH ×2 (08:56→21:10)
[2017-11-22] MEDS: LISINOPRIL 5 MG TAB PO SCH (08:56)
[2017-11-22] MEDS: ESCITALOPRAM OXALATE 10 MG TAB PO SCH (08:56)
[2017-11-22] MEDS ORDERED: PANTOPRAZOLE SOD 40 MG DELAYED RELEASE TAB PO SCH (09:00)
--- NOTE | 2017-11-22 12:49 | HHI.PR ---
Subjective Remarks Follow-up post obstructive pneumonia/sepsis/bacteremia/right lung mass 11/22/17-patient seen and examined, still with shortness of breath but denies any chest pain. Currently afebrile Objective Vitals Vital Signs Date Time Temp Pulse Resp B/P (MAP) Pulse Ox O2 Delivery O2 Flow Rate FiO2 11/22/17 08:46 99 Nasal Cannula 2.00 11/22/17 08:00 98.2 85 20 167/93 (117) 100 11/22/17 08:00 81 11/22/17 04:00 97.6 88 20 111/83 (92) 98 11/22/17 04:00 Nasal Cannula 2.00 11/22/17 03:47 90 11/22/17 01:52 88 11/22/17 01:38 Nasal Cannula 2.00 11/22/17 01:38 97.4 90 22 166/102 (123) 99 11/22/17 01:24 11/21/17 23:35 88 17 171/90 (117) 99 Nasal Cannula 2.00 11/21/17 19:45 86 20 160/99 (119) 99 Nasal Cannula 2.00 11/21/17 18:01 93 17 153/83 (106) 96 Room Air 11/21/17 16:07 98 21 11/21/17 15:55 100 Room Air 11/21/17 15:55 100 Room Air 11/21/17 15:20 98 Room Air 11/21/17 15:14 99.3 95 17 147/87 (107) 98 I/O 11/21/17 11/21/17 11/21/17 11/22/17 11/22/17 11/22/17 07:00 15:00 23:00 07:00 15:00 23:00 Intake Total 850 ml 940 ml Balance 850 ml 940 ml Intake Oral 390 ml IV Total 850 ml 550 ml # Voids 3 # Bowel Movements 0 Result Diagram: 11/21/17 1545 11/21/17 1545 Imaging Last Impressions Chest X-Ray 11/21/17 1538 Signed Impressions: Service Date/Time: November 15:52 - CONCLUSION: 1. Large right pleural effusion with associated diffuse airspace disease throughout the right lung. 2. 4.6 cm masslike opacity in the right upper lung zone in region of smaller mass noted on prior exam. This likely reflects interval enlargement of this mass. Consider CT examination for further evaluation as indicated. Walter Covarrubias MD Chest CT 11/21/17 0000 Signed Impressions: Service Date/Time: November 18:56 - CONCLUSION: 1. Progression of right hilar mass since July 2016 with encasement of the central bronchi as above and complete obstruction of the right upper lobe bronchus. There is also compression of the superior vena cava and azygos vein and moderate right effusion and partial atelectasis of the right lung as above. Small pericardial effusion. Chencho Stevenson MD Objective Remarks GENERAL: NAD SKIN: Warm and dry. HEAD: Normocephalic. EYES: No scleral icterus. No injection or drainage. NECK: Supple, trachea midline. No JVD or lymphadenopathy. CARDIOVASCULAR: Regular rate and rhythm without murmurs, gallops, or rubs. RESPIRATORY: Breath sounds decrease R>L. No accessory muscle use. GASTROINTESTINAL: Abdomen soft, non-tender, nondistended. MUSCULOSKELETAL: No cyanosis, or edema. BACK: Nontender without obvious deformity. No CVA tenderness. A/P Problem List: (1) Bacteremia due to Gram-positive bacteria ICD Code: R78.81 - Bacteremia (2) Postobstructive pneumonia ICD Code: J18.9 - Pneumonia, unspecified organism (3) Pulmonary mass ICD Code: R91.8 - Other nonspecific abnormal finding of lung field Status: Acute (4) Pleural effusion, right ICD Code: J90 - Pleural effusion, not elsewhere classified Status: Acute (5) Severe sepsis ICD Code: A41.9 - Sepsis, unspecified organism; R65.20 - Severe sepsis without septic shock Status: Acute Assessment and Plan 62-year-old man with Severe sepsis Pneumonia postobstructive. Currently on IV vancomycin and Zosyn and culture report [id number] cocci Currently on vancomycin and Zosyn Consult infectious disease specialist Repeat blood culture Right bronchus occlusion Right lung mass likely underlying malignancy Patient with a known history of right lung mass, seen by pulmonary medicine back in 2015 however biopsy was not considered at a time per pulmonary medicine Pulmonary medicine consultation pending Moderate right Pleural effusion Consider US guided thoracentesis Lactic acid acidosis Resolved COPD exacerbation with respiratory failure Continue with IV Solu-Medrol however change to every 8 hour, continue DuoNeb , IV antibiotics, LABA Diabetes type 2 Continue to hold metformin Currently on ISS Hypertension Schizoaffective disorder Hyperlipidemia Dementia Continue treatment for other chronic medical conditions DVT prophylaxis with Lovenox. Jose Callejas MD Nov 22, 2017 12:49
--- NOTE | 2017-11-22 15:35 | PD.CONS ---
History of Present Illness Service Infectious disease Consult Requested By Dr Callejas Reason for Consult Evaluate patient with postobstructive pneumonia and bacteremia Primary Care Physician Unknown Diagnoses: History of Present Illness Patient seen and examined. Records reviewed. Patient is not a very good historian. Patient is a 62-year-old male, resides in a shelter, brought into the hospital for evaluation of altered mental status. He apparently has been noted to be more confused. Evaluation revealed increase in size in his right lung mass, and CT showed progression of his tumor. Patient was first found to have a lung mass in 2015. He had a bronchoscopy and cytology did not show any malignancy. Could not really get any information to from the patient as to what kind of follow-up was done at that time. On review of his systems, patient stated that he is short of breath, but could not tell me how long. She has a cough and sometimes brings up yellowish phlegm. He also complained of some pleuritic chest pain and points to the sternal area. Apparently was some episodes of vomiting twice in the last week. He denies any diarrhea or any urinary complaints. There is no mention of any syncopal episode. Since admission he has not been febrile. His WBC is 12,000. 2 blood cultures on admission is now reported as growing gram-positive cocci in pairs and clusters. CT scan of the chest shows progression of the right hilar mass compared to July 2016 with encasement of the central bronchus, and complete obstruction of the right upper lobe bronchus. There is also compression of the superior vena cava and azygous vein. There is moderate right pleural effusion and partial atelectasis of the right lung. Infectious disease consultation has been requested to evaluate the patient with postobstructive pneumonia and bacteremia. Review of Systems Constitutional: COMPLAINS OF: Fatigue, Fever, Chills, Change in appetite, Night Sweats Eyes: DENIES: Eye pain Ears, nose, mouth, throat: DENIES: Nasal discharge, Oral lesions, Throat pain, Sinus Pain Respiratory: COMPLAINS OF: Cough, Sputum production, Shortness of breath, DENIES: Hemoptysis Cardiovascular: COMPLAINS OF: Chest pain, DENIES: Palpitations, Syncope Gastrointestinal: COMPLAINS OF: Vomiting, DENIES: Abdominal pain, Constipation , Diarrhea, Nausea, Difficulty Swallowing Genitourinary: DENIES: Urgency, Dysuria Musculoskeletal: COMPLAINS OF: Joint pain, DENIES: Joint Swelling Integumentary: DENIES: Rash Neurologic: DENIES: Localized weakness Past Family Social History Allergies: Coded Allergies: aspirin (Unverified Allergy, Severe, 05/21/17) chlorpromazine (Unverified Allergy, Unknown, 05/21/17) haloperidol (Unverified Allergy, Unknown, 05/21/17) Per sister in law Kenneth Taylor [phone]. Per patient, she manages his medications and administration for him. Past Medical History Hypertension Diabetes COPD Schizoaffective disorder Hyperlipidemia Dementia R hilar mass since 2016 Past Surgical History Appendectomy Hernia repair Active Ordered Medications Current Medications Medications (Trade) Dose Ordered Sig/Kelsy Route Start Time Stop Time Status Last Admin Piperacillin Sod/ Tazobactam Sod 100 ml @ 200 mls/hr Q6H IV 11/22/17 02:00 11/22/17 13:22 Pharmacy Profile Note 0 ml @ 0 mls/hr UNSCH OTHER 11/22/17 00:15 (NS Flush) 2 ml UNSCH PRN IV FLUSH 11/22/17 00:15 11/22/17 01:54 (NS Flush) 2 ml BID IV FLUSH 11/22/17 09:00 11/22/17 08:53 (Narcan Inj) 0.4 mg UNSCH PRN IV PUSH 11/22/17 00:15 (Duoneb Neb) 1 ampule Q6HR NEB NEB 11/22/17 04:00 11/22/17 08:43 (Duoneb Neb) 1 ampule Q2HR NEB PRN NEB 11/22/17 00:15 (Lovenox Inj) 40 mg Q24H SQ 11/22/17 09:00 11/22/17 08:55 (Tenormin) 50 mg BID PO 11/22/17 09:00 11/22/17 08:56 (Buspar) 10 mg BID PO 11/22/17 09:00 11/22/17 08:54 (Colace) 100 mg BID PO 11/22/17 09:00 11/22/17 08:56 (Lexapro) 10 mg DAILY PO 11/22/17 09:00 11/22/17 08:56 (Prinivil) 5 mg DAILY PO 11/22/17 09:00 11/22/17 08:56 (Procardia Xl) 60 mg DAILY PO 11/22/17 09:00 11/22/17 08:56 (Tears Naturale Opth Soln) 1 drop TID EACH EYE 11/22/17 09:00 11/22/17 12:25 (risperDAL) 6 mg HS PO 11/22/17 21:00 (Artane) 2 mg TID PO 11/22/17 09:00 11/22/17 12:25 (Pravachol) 40 mg HS PO 11/22/17 21:00 (Vasotec Inj) 2.5 mg Q6H PRN IV PUSH 11/22/17 03:15 Vancomycin HCl 1500 mg/Sodium Chloride 515 ml @ 257.5 mls/ hr Q24H IV 11/23/17 03:00 Miscellaneous Information SPECIFIC LAB TO BE DRAWN:VANCO TROUGH DATE TO... ONCE ONCE .XX 11/24/17 02:45 11/24/17 02:46 (SoluMEDROL INJ) 40 mg Q8HR IV PUSH 11/22/17 22:00 (Protonix Inj) 40 mg Q24H IV PUSH 11/23/17 01:00 Family History Not known Social History Used to smoke, quit 14yrs ago Denies etoh or drug abuse Originally from [place] Speaks Thai and Spanish, Indonesian Single Physical Exam Vital Signs Vital Signs Date Time Temp Pulse Resp B/P (MAP) Pulse Ox O2 Delivery O2 Flow Rate FiO2 11/22/17 12:00 84 11/22/17 12:00 98.3 81 18 155/73 (100) 99 11/22/17 08:46 99 Nasal Cannula 2.00 11/22/17 08:00 98.2 85 20 167/93 (117) 100 11/22/17 08:00 81 11/22/17 07:00 Nasal Cannula 2.00 11/22/17 04:00 97.6 88 20 111/83 (92) 98 11/22/17 04:00 Nasal Cannula 2.00 11/22/17 03:47 90 11/22/17 01:52 88 11/22/17 01:38 Nasal Cannula 2.00 11/22/17 01:38 97.4 90 22 166/102 (123) 99 11/22/17 01:24 11/21/17 23:35 88 17 171/90 (117) 99 Nasal Cannula 2.00 11/21/17 19:45 86 20 160/99 (119) 99 Nasal Cannula 2.00 11/21/17 18:01 93 17 153/83 (106) 96 Room Air 11/21/17 16:07 98 21 11/21/17 15:55 100 Room Air 11/21/17 15:55 100 Room Air 11/21/17 15:20 98 Room Air Physical Exam GENERAL: Patient is a well-nourished, well-developed male, awake and alert, not in respiratory distress. SKIN: Cool, and moist. No generalized rash, no ecchymoses and no evidence of embolic lesions. HEAD: Atraumatic. Normocephalic. No temporal wasting, or tenderness. EYES: [place] conjunctiva. No petechia or hemorrhage. Pupils equal, round and reactive to light. Extraocular movements full and intact. No scleral icterus. No injection or drainage. EARS, NOSE AND THROAT: Nose without bleeding or purulent nasal discharge. No sinus tenderness. Mucous membranes pink and moist. No oral lesions noted. No exudate. No oral thrush. NECK: Trachea midline. Supple and not tender, no meningeal signs CARDIOVASCULAR: Regular rate and rhythm. No murmurs, rubs or gallops heard RESPIRATORY: Clear to auscultation on L, decreased BS whole R lung, with decreased fremitus on lower lung [place]. No rales, wheezing or rhonchi ABDOMEN: Soft, non-tender, nondistended. Bowel sounds present and normoactive. No guarding. No rebound. No organomegaly. EXTREMITIES: No clubbing, cyanosis, or edema. No joint effusion, has good ROM. No calf tenderness. Well perfused and warm. NEUROLOGICAL: Awake and alert. Cranial nerves grossly intact. Motor grossly within normal limits. PSYCHIATRIC: Flat affect, calm and cooperative. LINE: No evidence of infection Laboratory Laboratory Tests Test 11/21/17 15:45 11/21/17 16:20 11/21/17 19:23 White Blood Count 12.5 Red Blood Count 3.47 Hemoglobin 9.5 Hematocrit 29.3 Mean Corpuscular Volume 84.4 Mean Corpuscular Hemoglobin 27.4 Mean Corpuscular Hemoglobin Concent 32.4 Red Cell Distribution Width 16.1 Platelet Count 1163 Mean Platelet Volume 6.3 Neutrophils (%) (Auto) 79.1 Lymphocytes (%) (Auto) 10.4 Monocytes (%) (Auto) 9.4 Eosinophils (%) (Auto) 0.3 Basophils (%) (Auto) 0.8 Neutrophils # (Auto) 9.9 Lymphocytes # (Auto) 1.3 Monocytes # (Auto) 1.2 Eosinophils # (Auto) 0.0 Basophils # (Auto) 0.1 CBC Comment DIFF FINAL Differential Comment Prothrombin Time 11.7 Prothromb Time International Ratio 1.2 Activated Partial Thromboplast Time 26.8 Blood Urea Nitrogen 13 Creatinine 1.31 Random Glucose 293 Total Protein 6.7 Albumin 2.2 Calcium Level 8.3 Alkaline Phosphatase 152 Aspartate Amino Transf (AST/SGOT) 22 Alanine Aminotransferase (ALT/SGPT) 17 Total Bilirubin 0.2 Sodium Level 135 Potassium Level 3.7 Chloride Level 100 Carbon Dioxide Level 22.9 Anion Gap 12 Estimat Glomerular Filtration Rate 68 Lactic Acid Level 4.2 1.9 Total Creatine Kinase 162 Creatine Kinase MB 2.8 Troponin I LESS THAN 0.02 Lipase 185 Urine Color YELLOW Urine Turbidity CLEAR Urine pH 6.0 Urine Specific [place] 1.021 Urine Protein 30 Urine Glucose (UA) NEG Urine Ketones NEG Urine Occult Blood NEG Urine Nitrite NEG Urine Bilirubin NEG Urine Urobilinogen LESS THAN 2.0 Urine Leukocyte Esterase NEG Urine RBC 1 Urine WBC 4 Urine Squamous Epithelial Cells <1 Urine Hyaline Casts 22 Urine Mucus MANY Microscopic Urinalysis Comment CULT NOT INDICATED Date/Time Source Procedure Growth Status 11/22/17 13:47 Blood Peripheral Aerobic Blood Culture Pending Received 11/22/17 13:47 Blood Peripheral Anaerobic Blood Culture Pending Received 11/21/17 15:15 Nasal Washing Influenza Types A,B Antigen (CRISTHIAN) - Final NEGATIVE FOR FLU A AND B ANTIGEN.... Complete Result Diagram: 11/21/17 1545 11/21/17 1545 Imaging RADIOLOGY STUDIES/FILMS REVIEWED Chest X-Ray 11/21/17 1538 Signed Impressions: Service Date/Time: November 15:52 - CONCLUSION: 1. Large right pleural effusion with associated diffuse airspace disease throughout the right lung. 2. 4.6 cm masslike opacity in the right upper lung zone in region of smaller mass noted on prior exam. This likely reflects interval enlargement of this mass. Consider CT examination for further evaluation as indicated. Walter Covarrubias MD Chest CT 11/21/17 0000 Signed Impressions: Service Date/Time: November 18:56 - CONCLUSION: 1. Progression of right hilar mass since July 2016 with encasement of the central bronchi as above and complete obstruction of the right upper lobe bronchus. There is also compression of the superior vena cava and azygos vein and moderate right effusion and partial atelectasis of the right lung as above. Small pericardial effusion. Chencho Stevenson MD Assessment and Plan Assessment and Plan IMPRESSION Post obstructive pneumonia due to enlarging R hilar mass encasing bronchus as well as SVC and azygous vein Bacteremia, ?due to PNA, ?real Hx schizoaffective disorder RECOMMENDATION Pulmonary to evaluate Follow C/S Continue empiric Abx: Vanco and Zosyn Legio and pneumo AG Monitor progress Will make further recommendations once work-up completed I will follow along with you Thank you for this consultation Crystal Burrell MD Nov 22, 2017 15:35
[2017-11-22] MEDS: PRAVASTATIN SOD 40 MG TAB PO SCH (21:10)
[2017-11-22] MEDS: risperiDONE 3 MG TAB PO SCH (21:10)
--- NOTE | 2017-11-22 21:39 | MB ---
cc: ABEBE HUNG DATE OF CONSULTATION 11/22/17 REASON FOR CONSULTATION Lung mass HISTORY OF PRESENT ILLNESS This is a 62-year-old man with a history of shortness of breath, cough, wheezing and altered mental status who was brought to the emergency room and admitted. The patient had a chest CT done upon arrival and it showed a right lung mass which had progressed over the past year and a half. Apparently, it has previously been evaluated by bronchoscopy which was non-diagnostic. The patient is unable to provide any meaningful details and seems to be somewhat disoriented but does answer some questions appropriately. He denies chest pains. He has had no fevers or chills. He is short of breath and he has a cough, has wheezing, brings up a little whitish-yellow mucus and has had some vomiting over the past one week. PAST MEDICAL HISTORY 1. History of the lung mass on the right side 2. History for hypertension. 3. Past history of dementia 4. Hyperlipidemia, 5. History of schizoaffective disorder history PAST SURGICAL HISTORY 1. Hernia surgery 2. Appendectomy, ALLERGIES HALDOL CHLORPROMAZINE ASPIRIN HABITS Unknown, but apparently the patient did smoke for over 20 years and quit 14 years ago. No significant alcohol use. He speaks Syriac and some Romansh. REVIEW OF SYSTEMS The patient is unable to provide any significant details. PHYSICAL EXAMINATION GENERAL: This is an averagely built middle-aged white male who is in no acute distress. Mild pallor, no cyanosis, no clubbing. There is minimal peripheral edema. No lymphadenopathy. VITAL SIGNS: Blood pressure 130/60, pulse 80, respirations 22, temperature 98.2. HEENT: Head normocephalic. Pupils reactive and equal. Tongue is moist. Nasal mucosa edematous. Throat was clear. NECK: Supple. No bruits or thyroid enlargement or lymphadenopathy. CHEST: Decreased excursions with wheezes over the right lung field and diminished breath sounds over the right base. HEART: The heart sounds ARE irregular S1 and S2. No murmur. ABDOMEN: Soft, protuberant without masses. No organomegaly or tenderness. EXTREMITIES: No lesions. No edema. NEUROLOGIC: Reflexes are 1+ with no gross motor deficits. Cranial nerves not tested. SKIN: No lesions are observed. IMPRESSION 1. Right hilar mass with post obstructive pneumonitis. 2. Chronic obstructive pulmonary disease 3. History of hypertension 4. Dementia. 5. Diabetes mellitus type 2 PLAN The patient has been placed on antibiotic coverage including Zosyn and vancomycin. We will also add Solu-Medrol 40 mg IV q.8 h, nebulized DuoNeb solution added q.6 h., oxygen supplementation at three liters nasal cannula. Coagulation profile will be done. We will hold off on any anticoagulation at this time. A bronchoscopy will be scheduled early next week to evaluate the right hilum and the lung mass. Thank you, Dr. Mccollum, for this consultation. MD ANGEL Schuler/ /7:44 PM /9:24 PM
[2017-11-23] VITALS (8 sets, daily range): BP systolic 112–174; BP diastolic 69–93; PULSE 77–94; RESP 18–24; TEMP 97.1–98.8; O2SAT 94–98
--- NOTE | 2017-11-23 00:58 | EKG ---
Date Performed: 11/21/2017 Time Performed: 15:23:15 PTAGE: 62 years EKG: Sinus rhythm POSSIBLE LEFT ATRIAL ENLARGEMENT BORDERLINE ECG PREVIOUS TRACING : 07/14/2016 19.47 Since the prior tracing, there has been no significant galvan DOCTOR: Brina Medeiros Interpretating Date/Time 11/23/2017 00:55:56
[2017-11-23] MEDS ORDERED: PANTOPRAZOLE SODIUM 40 MG VIAL IV PUSH SCH (01:00)
[2017-11-23] MEDS: PIPERACIL-TAZO 4.5 GM PREMIX 100 ML IV SCH ×4 (03:06→21:38)
[2017-11-23] MEDS: VANCOMYCIN 1,500 MG/NS 500 ML IV SCH ×2 (03:42)
[2017-11-23] MEDS: RESP: ALBUTEROL 2.5 MG/IPRATROPIUM 0.5 MG NEB (SCH) NEB ×4 (03:51→21:04)
[2017-11-23] MEDS: methylPREDNISolone SOD SUCC 40 MG/1 ML VIAL IV PUSH SCH ×2 (06:07→21:38)
[2017-11-23 08:11] LABS: AUTOMATED NEUTROPHIL # 12.1 TH/MM3 (1.8-7.7); BASOPHIL % 0.3 % (0.0-2.0); HEMOGLOBIN 9.1 GM/DL (13.0-17.0); LYMPH % 8.7 % (9.0-44.0); LYMPHOCYTE # 1.3 TH/MM3 (1.0-4.8); MEAN CELL VOLUME 84.8 FL (80.0-100.0); MEAN CORPUSCULAR HEMOGLOBIN 27.6 PG (27.0-34.0); MEAN CORPUSCULAR HGB CONC 32.6 % (32.0-36.0); MEAN PLATELET VOLUME 6.5 FL (7.0-11.0); MONO % 7.1 % (0.0-8.0); NEUT % 83.9 % (16.0-70.0); PLATELET COUNT 909 TH/MM3 (150-450); WHITE BLOOD COUNT 14.4 TH/MM3 (4.0-11.0)
[2017-11-23 08:33] LABS: BICARBONATE 27.3 MEQ/L (21.0-32.0); CALCIUM 8.4 MG/DL (8.5-10.1); CREATININE 0.82 MG/DL (0.60-1.30)
[2017-11-23] MEDS: DOCUSATE SODIUM 100 MG CAP PO SCH ×2 (08:37→21:41)
[2017-11-23] MEDS: TRIHEXYPHENIDYL HCL 2 MG TAB PO SCH ×3 (08:37→17:10)
[2017-11-23] MEDS: NIFEdipine 60 MG SUSTAINED RELEASE TAB PO SCH (08:37)
[2017-11-23] MEDS: ENOXAPARIN SODIUM 40 MG/0.4 ML SYRINGE SQ SCH (08:37)
[2017-11-23] MEDS: busPIRone HCL 10 MG TAB PO SCH ×2 (08:37→21:40)
[2017-11-23] MEDS: ARTIFICIAL TEARS OPTH SOLN 15 ML BTL EACH EYE SCH ×3 (08:38→17:10)
[2017-11-23] MEDS: ATENOLOL 50 MG TAB PO SCH ×2 (08:38→21:40)
[2017-11-23] MEDS: SODIUM CHLORIDE 0.9% FLUSH 10 ML FLUSH IV FLUSH SCH ×2 (08:38→21:40)
[2017-11-23] MEDS: LISINOPRIL 5 MG TAB PO SCH (08:38)
[2017-11-23] MEDS: ESCITALOPRAM OXALATE 10 MG TAB PO SCH (08:38)
[2017-11-23] MEDS ORDERED: ONDANSETRON HCL 4 MG/2 ML VIAL IV PUSH PRN (12:30)
--- NOTE | 2017-11-23 12:32 | HHI.PR ---
Subjective Remarks Follow-up post obstructive pneumonia/sepsis/bacteremia/right lung mass 11/22/17-patient seen and examined, still with shortness of breath but denies any chest pain. Currently afebrile 11/23/17-patient seen and examined, no acute event overnight. Currently afebrile. Repeat blood culture negative to date. Denies any significant shortness of breath. Objective Vitals Vital Signs Date Time Temp Pulse Resp B/P (MAP) Pulse Ox O2 Delivery O2 Flow Rate FiO2 11/23/17 09:03 Nasal Cannula 2.00 11/23/17 08:00 84 11/23/17 08:00 98.1 85 18 173/88 (116) 95 11/23/17 08:00 Nasal Cannula 2.00 11/23/17 04:00 98.1 77 22 112/69 (83) 98 11/23/17 03:48 78 11/23/17 00:27 98.7 89 24 128/71 (90) 98 11/22/17 23:45 82 11/22/17 21:32 98.9 87 28 134/81 (98) 99 11/22/17 21:11 93 Nasal Cannula 2.00 11/22/17 19:52 Nasal Cannula 2.00 11/22/17 16:00 98.8 91 18 127/84 (98) 92 11/22/17 16:00 95 I/O 11/22/17 11/22/17 11/22/17 11/23/17 11/23/17 11/23/17 07:00 15:00 23:00 07:00 15:00 23:00 Intake Total 940 ml 200 ml 1840 ml 1095 ml Output Total 300 ml Balance 940 ml 200 ml 1840 ml 795 ml Intake Oral 390 ml 1440 ml 480 ml IV Total 550 ml 200 ml 400 ml 615 ml Output Urine Total 300 ml # Voids 3 3 # Bowel Movements 0 1 Result Diagram: 11/23/17 0608 11/23/17 0608 Imaging Last Impressions Chest X-Ray 11/21/17 1538 Signed Impressions: Service Date/Time: November 15:52 - CONCLUSION: 1. Large right pleural effusion with associated diffuse airspace disease throughout the right lung. 2. 4.6 cm masslike opacity in the right upper lung zone in region of smaller mass noted on prior exam. This likely reflects interval enlargement of this mass. Consider CT examination for further evaluation as indicated. Walter Covarrubias MD Chest CT 11/21/17 0000 Signed Impressions: Service Date/Time: November 18:56 - CONCLUSION: 1. Progression of right hilar mass since July 2016 with encasement of the central bronchi as above and complete obstruction of the right upper lobe bronchus. There is also compression of the superior vena cava and azygos vein and moderate right effusion and partial atelectasis of the right lung as above. Small pericardial effusion. Chencho Stevenson MD Objective Remarks GENERAL: NAD SKIN: Warm and dry. HEAD: Normocephalic. EYES: No scleral icterus. No injection or drainage. NECK: Supple, trachea midline. No JVD or lymphadenopathy. CARDIOVASCULAR: Regular rate and rhythm without murmurs, gallops, or rubs. RESPIRATORY: Breath sounds decrease R>L. No accessory muscle use. GASTROINTESTINAL: Abdomen soft, non-tender, nondistended. MUSCULOSKELETAL: No cyanosis, or edema. BACK: Nontender without obvious deformity. No CVA tenderness. A/P Problem List: (1) Bacteremia due to Gram-positive bacteria ICD Code: R78.81 - Bacteremia (2) Postobstructive pneumonia ICD Code: J18.9 - Pneumonia, unspecified organism (3) Pulmonary mass ICD Code: R91.8 - Other nonspecific abnormal finding of lung field Status: Acute (4) Pleural effusion, right ICD Code: J90 - Pleural effusion, not elsewhere classified Status: Acute (5) Severe sepsis ICD Code: A41.9 - Sepsis, unspecified organism; R65.20 - Severe sepsis without septic shock Status: Acute Assessment and Plan 62-year-old man with Severe sepsis Pneumonia postobstructive. Currently on IV vancomycin and Zosyn and culture report [id number]-[id number] cocci Currently on vancomycin and Zosyn appreciate input from infectious disease specialist Repeat blood culture NTD Right bronchus occlusion Right lung mass likely underlying malignancy Patient with a known history of right lung mass, seen by pulmonary medicine back in 2015 however biopsy was not considered at a time per pulmonary medicine Pulmonary medicine consultation appreciate and plan for possible Bronchoscopy with biopsy Moderate right Pleural effusion Consider US guided thoracentesis Lactic acid acidosis Resolved COPD exacerbation with respiratory failure Decrease IV Solu-Medrol to 20mg Q12H, continue DuoNeb, IV antibiotics, LABA Diabetes type 2 Continue to hold metformin Currently on ISS Hypertension Schizoaffective disorder Hyperlipidemia Dementia Continue treatment for other chronic medical conditions DVT prophylaxis with Lovenox. Jose Callejas MD Nov 23, 2017 12:32
[2017-11-23] MEDS: ACETAMINOPHEN 325 MG TAB PO PRN (13:24)
[2017-11-23] MEDS: RESP: ALBUTEROL 2.5 MG/IPRATROPIUM 0.5 MG NEB (PRN) NEB (18:41)
[2017-11-23] MEDS: PRAVASTATIN SOD 40 MG TAB PO SCH (21:40)
[2017-11-23] MEDS: risperiDONE 3 MG TAB PO SCH (21:40)
[2017-11-24] VITALS (7 sets, daily range): BP systolic 130–154; BP diastolic 80–92; PULSE 75–86; RESP 17–21; TEMP 98.4–99.2; O2SAT 95–99
[2017-11-24] MEDS: PIPERACIL-TAZO 4.5 GM PREMIX 100 ML IV SCH ×4 (02:24→19:47)
[2017-11-24] MEDS ORDERED: PHARMACY ORDERED LAB ONE (02:45)
[2017-11-24] MEDS: VANCOMYCIN 1,500 MG/NS 500 ML IV SCH ×2 (03:58)
[2017-11-24] MEDS: RESP: ALBUTEROL 2.5 MG/IPRATROPIUM 0.5 MG NEB (SCH) NEB ×4 (04:28→21:32)
[2017-11-24] MEDS: SODIUM CHLORIDE 0.9% FLUSH 10 ML FLUSH IV FLUSH SCH ×2 (08:37→19:48)
[2017-11-24] MEDS: ENOXAPARIN SODIUM 40 MG/0.4 ML SYRINGE SQ SCH (08:43)
[2017-11-24] MEDS: methylPREDNISolone SOD SUCC 40 MG/1 ML VIAL IV PUSH SCH ×2 (08:44→20:53)
[2017-11-24] MEDS: ARTIFICIAL TEARS OPTH SOLN 15 ML BTL EACH EYE SCH ×3 (08:44→17:41)
[2017-11-24] MEDS: PANTOPRAZOLE SOD 40 MG DELAYED RELEASE TAB PO SCH (08:44)
[2017-11-24] MEDS: busPIRone HCL 10 MG TAB PO SCH ×2 (08:44→20:52)
[2017-11-24] MEDS: TRIHEXYPHENIDYL HCL 2 MG TAB PO SCH ×3 (08:44→17:39)
[2017-11-24] MEDS: LISINOPRIL 5 MG TAB PO SCH (08:44)
[2017-11-24] MEDS: ATENOLOL 50 MG TAB PO SCH ×2 (08:44→20:53)
[2017-11-24] MEDS: NIFEdipine 60 MG SUSTAINED RELEASE TAB PO SCH (08:44)
[2017-11-24] MEDS: ESCITALOPRAM OXALATE 10 MG TAB PO SCH (08:44)
[2017-11-24] MEDS: DOCUSATE SODIUM 100 MG CAP PO SCH ×2 (08:44→20:53)
--- NOTE | 2017-11-24 10:40 | HHI.PR ---
Subjective Remarks Follow-up post obstructive pneumonia/sepsis/bacteremia/right lung mass 11/22/17-patient seen and examined, still with shortness of breath but denies any chest pain. Currently afebrile 11/23/17-patient seen and examined, no acute event overnight. Currently afebrile. Repeat blood culture negative to date. Denies any significant shortness of breath. 11/24/17-patient seen and examined, blood glucose labile. Currently afebrile. Stable shortness of breath however denies chest pain. Objective Vitals Vital Signs Date Time Temp Pulse Resp B/P (MAP) Pulse Ox O2 Delivery O2 Flow Rate FiO2 11/24/17 08:51 98.4 79 18 152/90 (110) 99 11/24/17 08:00 Nasal Cannula 2.00 11/24/17 04:35 Nasal Cannula 2.00 11/24/17 04:00 98.6 75 17 154/80 (104) 95 11/24/17 04:00 Nasal Cannula 2.00 11/24/17 00:00 Nasal Cannula 2.00 11/24/17 00:00 98.6 78 21 141/87 (105) 96 11/23/17 20:00 Nasal Cannula 2.00 11/23/17 20:00 98.8 94 21 161/93 (115) 94 11/23/17 16:00 97.1 81 18 171/82 (111) 96 11/23/17 15:27 96 21 11/23/17 12:00 98.7 86 18 174/93 (120) 97 I/O 11/23/17 11/23/17 11/23/17 11/24/17 11/24/17 11/24/17 07:00 15:00 23:00 07:00 15:00 23:00 Intake Total 1095 ml 780 ml 100 ml 855 ml Output Total 300 ml 300 ml Balance 795 ml 780 ml 100 ml 555 ml Intake Oral 480 ml 780 ml 240 ml IV Total 615 ml 100 ml 615 ml Output Urine Total 300 ml 300 ml # Voids 3 4 3 # Bowel Movements 1 3 1 Result Diagram: 11/23/17 0608 11/23/17 0608 Imaging Last Impressions Chest X-Ray 11/21/17 1538 Signed Impressions: Service Date/Time: November 15:52 - CONCLUSION: 1. Large right pleural effusion with associated diffuse airspace disease throughout the right lung. 2. 4.6 cm masslike opacity in the right upper lung zone in region of smaller mass noted on prior exam. This likely reflects interval enlargement of this mass. Consider CT examination for further evaluation as indicated. Walter Covarrubias MD Chest CT 11/21/17 0000 Signed Impressions: Service Date/Time: November 18:56 - CONCLUSION: 1. Progression of right hilar mass since July 2016 with encasement of the central bronchi as above and complete obstruction of the right upper lobe bronchus. There is also compression of the superior vena cava and azygos vein and moderate right effusion and partial atelectasis of the right lung as above. Small pericardial effusion. Chencho Stevenson MD Objective Remarks GENERAL: NAD SKIN: Warm and dry. HEAD: Normocephalic. EYES: No scleral icterus. No injection or drainage. NECK: Supple, trachea midline. No JVD or lymphadenopathy. CARDIOVASCULAR: Regular rate and rhythm without murmurs, gallops, or rubs. RESPIRATORY: Breath sounds decrease R>L. No accessory muscle use. GASTROINTESTINAL: Abdomen soft, non-tender, nondistended. MUSCULOSKELETAL: No cyanosis, or edema. BACK: Nontender without obvious deformity. No CVA tenderness. A/P Problem List: (1) Bacteremia due to Gram-positive bacteria ICD Code: R78.81 - Bacteremia (2) Postobstructive pneumonia ICD Code: J18.9 - Pneumonia, unspecified organism (3) Pulmonary mass ICD Code: R91.8 - Other nonspecific abnormal finding of lung field Status: Acute (4) Pleural effusion, right ICD Code: J90 - Pleural effusion, not elsewhere classified Status: Acute (5) Severe sepsis ICD Code: A41.9 - Sepsis, unspecified organism; R65.20 - Severe sepsis without septic shock Status: Acute Assessment and Plan 62-year-old man with Severe sepsis-Resolved Pneumonia postobstructive. Currently on IV vancomycin and Zosyn Iwlgutafxb-islm-[id number] cocci Currently on vancomycin and Zosyn appreciate input from infectious disease specialist Repeat blood culture NTD Right bronchus occlusion Right lung mass likely underlying malignancy Patient with a known history of right lung mass, seen by pulmonary medicine back in 2015 however biopsy was not considered at a time per pulmonary medicine Pulmonary medicine consultation appreciate and plan for possible Bronchoscopy with biopsy Moderate right Pleural effusion Consider US guided thoracentesis Lactic acid acidosis Resolved COPD exacerbation with respiratory failure Continue IV Solu-Medrol 20mg Q12H, continue DuoNeb, IV antibiotics, LABA Diabetes type 2 Resume metformin Currently on ISS Hypertension Schizoaffective disorder Hyperlipidemia Dementia Continue treatment for other chronic medical conditions DVT prophylaxis with Lovenox. Jose Callejas MD Nov 24, 2017 10:40
[2017-11-24] MEDS ORDERED: GLUCAGON 1 MG/ML VIAL OTHER PRN (10:45)
[2017-11-24] MEDS ORDERED: PILL SPLITTER OTHER PRN (10:45)
[2017-11-24] MEDS ORDERED: DEXTROSE 50% IN WATER 50 ML VIAL(D50) IV PUSH PRN (10:45)
[2017-11-24] MEDS: metFORMIN HCL 500 MG TAB PO SCH ×2 (11:01→17:40)
[2017-11-24] MEDS: INSULIN ASPART SUPPLEMENTAL SCALE SQ SCH ×3 (12:37→20:52)
[2017-11-24] MEDS: VANCOMYCIN INJ 1,250 MG in SODIUM CHLOR 0.9% 250 ML INJ 250 ML IV SCH (17:00)
[2017-11-24] MEDS: PRAVASTATIN SOD 40 MG TAB PO SCH (20:52)
[2017-11-24] MEDS: risperiDONE 3 MG TAB PO SCH (20:53)
[2017-11-25] VITALS (7 sets, daily range): BP systolic 130–164; BP diastolic 83–99; PULSE 78–88; RESP 18–20; TEMP 97.4–98.7; O2SAT 93–100
[2017-11-25] MEDS: PIPERACIL-TAZO 4.5 GM PREMIX 100 ML IV SCH ×4 (02:18→20:55)
[2017-11-25] MEDS: RESP: ALBUTEROL 2.5 MG/IPRATROPIUM 0.5 MG NEB (SCH) NEB ×4 (03:33→20:46)
[2017-11-25] MEDS: VANCOMYCIN INJ 1,250 MG in SODIUM CHLOR 0.9% 250 ML INJ 250 ML IV SCH (04:23)
[2017-11-25] MEDS: INSULIN ASPART SUPPLEMENTAL SCALE SQ SCH ×4 (08:00→21:03)
[2017-11-25] MEDS: methylPREDNISolone SOD SUCC 40 MG/1 ML VIAL IV PUSH SCH ×2 (08:32→21:00)
[2017-11-25] MEDS: DOCUSATE SODIUM 100 MG CAP PO SCH ×2 (08:32→21:00)
[2017-11-25] MEDS: SODIUM CHLORIDE 0.9% FLUSH 10 ML FLUSH IV FLUSH SCH ×2 (08:32→20:59)
[2017-11-25] MEDS: TRIHEXYPHENIDYL HCL 2 MG TAB PO SCH ×3 (08:33→16:58)
[2017-11-25] MEDS: busPIRone HCL 10 MG TAB PO SCH ×2 (08:33→21:01)
[2017-11-25] MEDS: ESCITALOPRAM OXALATE 10 MG TAB PO SCH (08:33)
[2017-11-25] MEDS: PANTOPRAZOLE SOD 40 MG DELAYED RELEASE TAB PO SCH (08:33)
[2017-11-25] MEDS: ATENOLOL 50 MG TAB PO SCH ×2 (08:33→21:02)
[2017-11-25] MEDS: NIFEdipine 60 MG SUSTAINED RELEASE TAB PO SCH (08:33)
[2017-11-25] MEDS: metFORMIN HCL 500 MG TAB PO SCH ×2 (08:33→16:59)
[2017-11-25] MEDS: LISINOPRIL 5 MG TAB PO SCH (08:34)
[2017-11-25] MEDS: ENOXAPARIN SODIUM 40 MG/0.4 ML SYRINGE SQ SCH (08:34)
[2017-11-25] MEDS: ARTIFICIAL TEARS OPTH SOLN 15 ML BTL EACH EYE SCH ×3 (08:40→16:59)
--- NOTE | 2017-11-25 09:40 | HHI.IDPN ---
Subjective Subjective Remarks Patient is a 62-year-old male, resides in a assisted, brought into the hospital for evaluation of altered mental status. He apparently has been noted to be more confused. Evaluation revealed increase in size in his right lung mass, and CT showed progression of his tumor. Patient was first found to have a lung mass in 2015. He had a bronchoscopy and cytology did not show any malignancy. Could not really get any information to from the patient as to what kind of follow-up was done at that time. On review of his systems, patient stated that he is short of breath, but could not tell me how long. She has a cough and sometimes brings up yellowish phlegm. He also complained of some pleuritic chest pain and points to the sternal area. Apparently was some episodes of vomiting twice in the last week. He denies any diarrhea or any urinary complaints. There is no mention of any syncopal episode. Since admission he has not been febrile. His WBC is 12,000. 2 blood cultures on admission is now reported as growing gram-positive cocci in pairs and clusters. CT scan of the chest shows progression of the right hilar mass compared to July 2016 with encasement of the central bronchus, and complete obstruction of the right upper lobe bronchus. There is also compression of the superior vena cava and azygous vein. There is moderate right pleural effusion and partial atelectasis of the right lung. Infectious disease consultation has been requested to evaluate the patient with postobstructive pneumonia and bacteremia. Notes reviewed No fever States he is SOB, though he looks comfortable Dry cough Also with sternal CP On nasal O2 BC with 2 diff Coag Neg Staph Repeat BC negative On steroids Creatinine down to normal Antibiotics Current Medications Vanco Zosyn Medications (Trade) Dose Ordered Sig/Kelsy Route Start Time Stop Time Status Last Admin Piperacillin Sod/ Tazobactam Sod 100 ml @ 200 mls/hr Q6H IV 11/22/17 02:00 11/25/17 08:32 Pharmacy Profile Note 0 ml @ 0 mls/hr UNSCH OTHER 11/22/17 00:15 (NS Flush) 2 ml UNSCH PRN IV FLUSH 11/22/17 00:15 11/22/17 01:54 (NS Flush) 2 ml BID IV FLUSH 11/22/17 09:00 11/25/17 08:32 (Narcan Inj) 0.4 mg UNSCH PRN IV PUSH 11/22/17 00:15 (Duoneb Neb) 1 ampule Q6HR NEB NEB 11/22/17 04:00 11/25/17 03:33 (Duoneb Neb) 1 ampule Q2HR NEB PRN NEB 11/22/17 00:15 11/23/17 18:41 (Lovenox Inj) 40 mg Q24H SQ 11/22/17 09:00 11/25/17 08:34 (Tenormin) 50 mg BID PO 11/22/17 09:00 11/25/17 08:33 (Buspar) 10 mg BID PO 11/22/17 09:00 11/25/17 08:33 (Colace) 100 mg BID PO 11/22/17 09:00 11/25/17 08:32 (Lexapro) 10 mg DAILY PO 11/22/17 09:00 11/25/17 08:33 (Prinivil) 5 mg DAILY PO 11/22/17 09:00 11/25/17 08:34 (Procardia Xl) 60 mg DAILY PO 11/22/17 09:00 11/25/17 08:33 (Tears Naturale Opth Soln) 1 drop TID EACH EYE 11/22/17 09:00 11/25/17 08:40 (risperDAL) 6 mg HS PO 11/22/17 21:00 11/24/17 20:53 (Artane) 2 mg TID PO 11/22/17 09:00 11/25/17 08:33 (Pravachol) 40 mg HS PO 11/22/17 21:00 11/24/17 20:52 (Vasotec Inj) 2.5 mg Q6H PRN IV PUSH 11/22/17 03:15 11/23/17 14:05 (SoluMEDROL INJ) 20 mg Q12HR IV PUSH 11/23/17 21:00 11/25/17 08:32 (Protonix) 40 mg DAILY PO 11/24/17 09:00 11/25/17 08:33 (Tylenol) 650 mg Q4H PRN PO 11/23/17 12:30 11/23/17 13:24 (Zofran Inj) 4 mg Q6H PRN IV PUSH 11/23/17 12:30 Miscellaneous Information SPECIFIC LAB TO BE DRAWN:VA... ONCE ONCE .XX 11/26/17 03:45 11/26/17 03:46 Vancomycin HCl 1250 mg/Sodium Chloride 262.5 ml @ 250 mls/hr Q12H IV 11/24/17 16:00 11/25/17 04:23 (D50w (Vial) Inj) 50 ml UNSCH PRN IV PUSH 11/24/17 10:45 (Glucagon Inj) 1 mg UNSCH PRN OTHER 11/24/17 10:45 (NovoLOG SUPPLEMENTAL SCALE) 1 ACHS SLIDING SCALE SQ 11/24/17 12:00 11/24/17 20:52 (Glucophage) 250 mg BIDPC PO 11/24/17 10:45 11/25/17 08:33 (Pill Splitter) 1 ea UNSCH PRN OTHER 11/24/17 10:45 Lines PIV Past Medical History Hypertension Diabetes COPD Schizoaffective disorder Hyperlipidemia Dementia R hilar mass since 2016 Past Surgical History Appendectomy Hernia repair Allergies: Coded Allergies: aspirin (Unverified Allergy, Severe, 05/21/17) chlorpromazine (Unverified Allergy, Unknown, 05/21/17) haloperidol (Unverified Allergy, Unknown, 05/21/17) Per sister in - [place] Taylor [phone]. Per patient, she manages his medications and administration for him. Objective . Vital Signs Date Time Temp Pulse Resp B/P (MAP) Pulse Ox O2 Delivery O2 Flow Rate FiO2 11/25/17 09:18 Nasal Cannula 2.00 11/25/17 04:00 98.4 78 18 134/83 (100) 100 11/25/17 04:00 Nasal Cannula 2.00 11/25/17 00:00 98.7 83 18 130/90 (103) 96 11/25/17 00:00 Nasal Cannula 2.00 11/24/17 21:41 97 Nasal Cannula 2.00 11/24/17 20:15 98.6 86 20 136/87 (103) 98 11/24/17 20:00 Nasal Cannula 2.00 11/24/17 17:16 99.2 83 19 130/92 (105) 99 11/24/17 12:54 98.6 78 18 138/88 (105) 98 . Microbiology Date/Time Source Procedure Growth Status 11/22/17 13:47 Blood Peripheral Aerobic Blood Culture - Preliminary NO GROWTH IN 2 DAYS Resulted 11/22/17 13:47 Blood Peripheral Anaerobic Blood Culture - Preliminary NO GROWTH IN 2 DAYS Resulted 11/22/17 13:25 Blood Peripheral Aerobic Blood Culture - Preliminary NO GROWTH IN 2 DAYS Resulted 11/22/17 13:25 Blood Peripheral Anaerobic Blood Culture - Preliminary NO GROWTH IN 2 DAYS Resulted 11/22/17 18:50 Urine Clean Catch Legionella Antigen - Final PRESUMPTIVE NEGATIVE FOR LEGIONELLA P... Complete 11/22/17 18:50 Urine Clean Catch Streptococcus pneumoniae Antigen (M - Final PRESUMPTIVE NEGATIVE FOR STREPTOCOCCU... Complete Imaging Last Impressions Chest X-Ray 11/21/17 1538 Signed Impressions: Service Date/Time: November 15:52 - CONCLUSION: 1. Large right pleural effusion with associated diffuse airspace disease throughout the right lung. 2. 4.6 cm masslike opacity in the right upper lung zone in region of smaller mass noted on prior exam. This likely reflects interval enlargement of this mass. Consider CT examination for further evaluation as indicated. Walter Covarrubias MD Chest CT 11/21/17 0000 Signed Impressions: Service Date/Time: November 18:56 - CONCLUSION: 1. Progression of right hilar mass since July 2016 with encasement of the central bronchi as above and complete obstruction of the right upper lobe bronchus. There is also compression of the superior vena cava and azygos vein and moderate right effusion and partial atelectasis of the right lung as above. Small pericardial effusion. Chencho Stevenson MD Physical Exam GENERAL: awake and alert, not in respiratory distress. SKIN: Cool, and moist. No generalized rash HEAD: Atraumatic. Normocephalic. No temporal wasting, or tenderness. EYES: [place] conjunctiva. No petechia or hemorrhage. Pupils equal, round and reactive to light. Extraocular movements full and intact. No scleral icterus. No injection or drainage. EARS, NOSE AND THROAT: Nose without bleeding or purulent nasal discharge. No sinus tenderness. Mucous membranes pink and moist. No oral lesions noted. NECK: Trachea midline. Supple and not tender, no meningeal signs CARDIOVASCULAR: Regular rate and rhythm. No murmurs, rubs or gallops heard RESPIRATORY: Clear to auscultation on L, decreased BS whole R lung. ABDOMEN: Soft, non-tender, nondistended. Bowel sounds present and normoactive. No guarding. No rebound. No organomegaly. EXTREMITIES: No clubbing, cyanosis, or edema. No joint effusion, has good ROM. No calf tenderness. Well perfused and warm. NEUROLOGICAL: Non focal PSYCHIATRIC: Flat affect, calm and cooperative. LINE: No evidence of infection Assessment & Plan Remarks IMPRESSION Post obstructive pneumonia due to enlarging R hilar mass encasing bronchus as well as SVC and azygous vein Bacteremia, 2 diff Coag Neg Staph likely cotaminant Hx schizoaffective disorder RECOMMENDATION Continue empiric Abx: Zosyn Stop Vancomycin Monitor progress ?CT guided biopsy Bronch has been planned by pulmonary this week D/W Crystal Plummer MD Nov 25, 2017 09:40
--- NOTE | 2017-11-25 10:25 | HHI.PR ---
Subjective Remarks Follow-up post obstructive pneumonia/sepsis/bacteremia/right lung mass 11/22/17-patient seen and examined, still with shortness of breath but denies any chest pain. Currently afebrile 11/23/17-patient seen and examined, no acute event overnight. Currently afebrile. Repeat blood culture negative to date. Denies any significant shortness of breath. 11/24/17-patient seen and examined, blood glucose labile. Currently afebrile. Stable shortness of breath however denies chest pain. 11/25/17-patient seen and examined, no acute event overnight. Denies any chest pain or shortness of breath. Currently afebrile. Objective Vitals Vital Signs Date Time Temp Pulse Resp B/P (MAP) Pulse Ox O2 Delivery O2 Flow Rate FiO2 11/25/17 09:18 Nasal Cannula 2.00 11/25/17 08:00 98.5 79 20 158/99 (118) 97 11/25/17 04:00 98.4 78 18 134/83 (100) 100 11/25/17 04:00 Nasal Cannula 2.00 11/25/17 00:00 98.7 83 18 130/90 (103) 96 11/25/17 00:00 Nasal Cannula 2.00 11/24/17 21:41 97 Nasal Cannula 2.00 11/24/17 20:15 98.6 86 20 136/87 (103) 98 11/24/17 20:00 Nasal Cannula 2.00 11/24/17 17:16 99.2 83 19 130/92 (105) 99 11/24/17 12:54 98.6 78 18 138/88 (105) 98 I/O 11/24/17 11/24/17 11/24/17 11/25/17 11/25/17 11/25/17 07:00 15:00 23:00 07:00 15:00 23:00 Intake Total 855 ml 1060 ml 351 ml Output Total 300 ml Balance 555 ml 1060 ml 351 ml Intake Oral 240 ml 960 ml IV Total 615 ml 100 ml 351 ml Output Urine Total 300 ml # Voids 3 6 # Bowel Movements 1 0 Result Diagram: 11/23/17 0608 11/23/17 0608 Imaging Last Impressions Chest X-Ray 11/21/17 1538 Signed Impressions: Service Date/Time: November 15:52 - CONCLUSION: 1. Large right pleural effusion with associated diffuse airspace disease throughout the right lung. 2. 4.6 cm masslike opacity in the right upper lung zone in region of smaller mass noted on prior exam. This likely reflects interval enlargement of this mass. Consider CT examination for further evaluation as indicated. Walter Covarrubias MD Chest CT 11/21/17 0000 Signed Impressions: Service Date/Time: November 18:56 - CONCLUSION: 1. Progression of right hilar mass since July 2016 with encasement of the central bronchi as above and complete obstruction of the right upper lobe bronchus. There is also compression of the superior vena cava and azygos vein and moderate right effusion and partial atelectasis of the right lung as above. Small pericardial effusion. Chencho Stevenson MD Objective Remarks GENERAL: NAD SKIN: Warm and dry. HEAD: Normocephalic. EYES: No scleral icterus. No injection or drainage. NECK: Supple, trachea midline. No JVD or lymphadenopathy. CARDIOVASCULAR: Regular rate and rhythm without murmurs, gallops, or rubs. RESPIRATORY: Breath sounds decrease R>L. No accessory muscle use. GASTROINTESTINAL: Abdomen soft, non-tender, nondistended. MUSCULOSKELETAL: No cyanosis, or edema. BACK: Nontender without obvious deformity. No CVA tenderness. A/P Problem List: (1) Bacteremia due to Gram-positive bacteria ICD Code: R78.81 - Bacteremia (2) Postobstructive pneumonia ICD Code: J18.9 - Pneumonia, unspecified organism (3) Pulmonary mass ICD Code: R91.8 - Other nonspecific abnormal finding of lung field Status: Acute (4) Pleural effusion, right ICD Code: J90 - Pleural effusion, not elsewhere classified Status: Acute (5) Severe sepsis ICD Code: A41.9 - Sepsis, unspecified organism; R65.20 - Severe sepsis without septic shock Status: Acute Assessment and Plan 62-year-old man with Severe sepsis-Resolved Pneumonia postobstructive. Currently on IV vancomycin and Zosyn Elehmzvhdn-otwr-uuptvxcd cocci Currently on vancomycin and Zosyn appreciate input from infectious disease specialist Repeat blood culture NTD Right bronchus occlusion Right lung mass likely underlying malignancy Patient with a known history of right lung mass, seen by pulmonary medicine back in 2016 however biopsy was not considered at a time per pulmonary medicine Pulmonary medicine consultation appreciate and plan for possible Bronchoscopy with biopsy this week Moderate right Pleural effusion Consider US guided thoracentesis Lactic acid acidosis Resolved COPD exacerbation with respiratory failure Continue IV Solu-Medrol 20mg Q12H, continue DuoNeb, IV antibiotics, LABA Diabetes type 2 Continue metformin Currently on ISS Hypertension Schizoaffective disorder Hyperlipidemia Dementia Continue treatment for other chronic medical conditions DVT prophylaxis with Lovenox. Jose Callejas MD Nov 25, 2017 10:25
[2017-11-25] MEDS ORDERED: DEXT 5%-NACL 0.45% 1000 ML INJ 1,000 ML IV SCH (12:57)
[2017-11-25] MEDS ORDERED: RESP: ALBUTEROL CONC 2.5 MG/0.5 ML NEB NEB SCH (13:00)
--- NOTE | 2017-11-25 13:02 | HHI.PR ---
Subjective Remarks He has No SOB at rest. Off O2 . Has some cough. Objective Vital Signs Date Time Temp Pulse Resp B/P (MAP) Pulse Ox O2 Delivery O2 Flow Rate FiO2 11/25/17 09:18 Nasal Cannula 2.00 11/25/17 08:00 98.5 79 20 158/99 (118) 97 11/25/17 04:00 98.4 78 18 134/83 (100) 100 11/25/17 04:00 Nasal Cannula 2.00 11/25/17 00:00 98.7 83 18 130/90 (103) 96 11/25/17 00:00 Nasal Cannula 2.00 11/24/17 21:41 97 Nasal Cannula 2.00 11/24/17 20:15 98.6 86 20 136/87 (103) 98 11/24/17 20:00 Nasal Cannula 2.00 11/24/17 17:16 99.2 83 19 130/92 (105) 99 I/O 11/24/17 11/24/17 11/24/17 11/25/17 11/25/17 11/25/17 07:00 15:00 23:00 07:00 15:00 23:00 Intake Total 855 ml 1060 ml 351 ml Output Total 300 ml Balance 555 ml 1060 ml 351 ml Intake Oral 240 ml 960 ml IV Total 615 ml 100 ml 351 ml Output Urine Total 300 ml # Voids 3 6 # Bowel Movements 1 0 Result Diagram: 11/23/17 0608 11/23/17 0608 Objective Remarks GENERAL: This is an averagely built middle-aged white male who is in no acute distress. Mild pallor, no cyanosis, no clubbing. There is no peripheral edema. No lymphadenopathy. HEENT: Head normocephalic. Pupils reactive and equal. Tongue is moist. Nasal mucosa edematous. Throat was clear. NECK: Supple. No bruits or thyroid enlargement or lymphadenopathy. CHEST: Decreased excursions with wheezes over the right lung field and diminished breath sounds over the right base. HEART: The heart sounds ARE irregular S1 and S2. No murmur. ABDOMEN: Soft, protuberant without masses. No organomegaly or tenderness. EXTREMITIES: No lesions. No edema. NEUROLOGIC: Reflexes are 1+ with no gross motor deficits. Cranial nerves not tested. SKIN: No lesions are observed. Assessment and Plan Assessment and Plan IMPRESSION 1. Right hilar mass with post obstructive pneumonitis. 2. Chronic obstructive pulmonary disease 3. History of hypertension 4. Dementia. 5. Diabetes mellitus type 2 Plan : 1. Will schedule Bronchoscopy in am 2. Procedure and risks were Discussed 3. O2 2 L. 4. Continue antibiotics. 5. Hold anticoagulants 6. PFT today Eh Kapoor MD Nov 25, 2017 13:02
[2017-11-25 13:32] LABS: AUTOMATED NEUTROPHIL # 14.8 TH/MM3 (1.8-7.7); BASOPHIL % 0.2 % (0.0-2.0); HEMATOCRIT 31.5 % (39.0-51.0); HEMOGLOBIN 10.3 GM/DL (13.0-17.0); LYMPH % 6.9 % (9.0-44.0); LYMPHOCYTE # 1.2 TH/MM3 (1.0-4.8); MEAN CELL VOLUME 84.9 FL (80.0-100.0); MEAN CORPUSCULAR HEMOGLOBIN 27.7 PG (27.0-34.0); MEAN CORPUSCULAR HGB CONC 32.6 % (32.0-36.0); MEAN PLATELET VOLUME 6.2 FL (7.0-11.0); MONO % 5.6 % (0.0-8.0); MONOCYTE # 0.9 TH/MM3 (0-0.9); NEUT % 87.3 % (16.0-70.0); PLATELET COUNT 819 TH/MM3 (150-450); RED BLOOD COUNT 3.72 MIL/MM3 (4.50-5.90); RED CELL DISTRIBUTION WIDTH 16.5 % (11.6-17.2); WHITE BLOOD COUNT 16.9 TH/MM3 (4.0-11.0)
[2017-11-25 13:42] LABS: INTERNATIONAL NORMALIZED RATIO 1.1 RATIO; PROTHROMBIN TIME - PATIENT 11.2 SEC (9.8-11.6)
[2017-11-25 14:17] LABS: BICARBONATE 29.5 MEQ/L (21.0-32.0); CREATININE 1.1 MG/DL (0.60-1.30)
[2017-11-25] MEDS ORDERED: POVIDONE IODINE 5% (ANTISEPSIS KIT) 4 APPLICATIONS EACH NARE PRN (16:30)
[2017-11-25] MEDS ORDERED: LACTATED RINGER'S 1000 ML IV PRN (16:30)
[2017-11-25] MEDS ORDERED: METOPROLOL TARTRATE 25 MG TAB PO PRN (16:30)
[2017-11-25] MEDS ORDERED: CHLORHEXIDINE GLUCONATE 2 % 1 PACK (2 CLOTHS) TOPICAL PRN (16:30)
[2017-11-25] MEDS ORDERED: SODIUM CHLORID 0.9% 500 ML IV PRN (16:30)
[2017-11-25] MEDS: PRAVASTATIN SOD 40 MG TAB PO SCH (21:02)
[2017-11-25] MEDS: risperiDONE 3 MG TAB PO SCH (21:02)
[2017-11-26] VITALS (8 sets, daily range): BP systolic 101–152; BP diastolic 61–92; PULSE 78–86; RESP 18–20; TEMP 97.1–98.5; O2SAT 95–99
[2017-11-26] MEDS: PIPERACIL-TAZO 4.5 GM PREMIX 100 ML IV SCH ×4 (02:25→20:27)
[2017-11-26] MEDS ORDERED: PHARMACY ORDERED LAB ONE (03:45)
[2017-11-26] MEDS: RESP: ALBUTEROL 2.5 MG/IPRATROPIUM 0.5 MG NEB (SCH) NEB (03:46)
[2017-11-26] MEDS: INSULIN ASPART SUPPLEMENTAL SCALE SQ SCH ×4 (08:00→21:00)
[2017-11-26] MEDS: metFORMIN HCL 500 MG TAB PO SCH ×2 (09:00→18:18)
[2017-11-26] MEDS: ARTIFICIAL TEARS OPTH SOLN 15 ML BTL EACH EYE SCH ×3 (09:00→18:00)
[2017-11-26] MEDS: PANTOPRAZOLE SOD 40 MG DELAYED RELEASE TAB PO SCH (09:09)
[2017-11-26] MEDS: ESCITALOPRAM OXALATE 10 MG TAB PO SCH (09:09)
[2017-11-26] MEDS: methylPREDNISolone SOD SUCC 40 MG/1 ML VIAL IV PUSH SCH ×2 (09:09→20:27)
[2017-11-26] MEDS: DOCUSATE SODIUM 100 MG CAP PO SCH ×2 (09:09→20:28)
[2017-11-26] MEDS: NIFEdipine 60 MG SUSTAINED RELEASE TAB PO SCH (09:09)
[2017-11-26] MEDS: TRIHEXYPHENIDYL HCL 2 MG TAB PO SCH ×3 (09:09→18:18)
[2017-11-26] MEDS: ATENOLOL 50 MG TAB PO SCH ×2 (09:09→20:28)
[2017-11-26] MEDS: busPIRone HCL 10 MG TAB PO SCH ×2 (09:09→20:28)
[2017-11-26] MEDS: LISINOPRIL 5 MG TAB PO SCH (09:10)
[2017-11-26] MEDS: SODIUM CHLORIDE 0.9% FLUSH 10 ML FLUSH IV FLUSH SCH ×2 (09:10→20:27)
--- NOTE | 2017-11-26 10:28 | HHI.PR ---
Subjective Remarks Follow-up post obstructive pneumonia/sepsis/bacteremia/right lung mass 11/22/17-patient seen and examined, still with shortness of breath but denies any chest pain. Currently afebrile 11/23/17-patient seen and examined, no acute event overnight. Currently afebrile. Repeat blood culture negative to date. Denies any significant shortness of breath. 11/24/17-patient seen and examined, blood glucose labile. Currently afebrile. Stable shortness of breath however denies chest pain. 11/25/17-patient seen and examined, no acute event overnight. Denies any chest pain or shortness of breath. Currently afebrile. 11/26/17-patient seen and examined, currently nothing by mouth pending bronchoscopy this morning. Some nonproductive cough with SOB Objective Vitals Vital Signs Date Time Temp Pulse Resp B/P (MAP) Pulse Ox O2 Delivery O2 Flow Rate FiO2 11/26/17 08:00 98.1 79 20 152/92 (112) 97 11/26/17 04:41 98.2 78 18 101/68 (79) 98 11/26/17 04:00 Nasal Cannula 2.00 11/26/17 03:45 97 Nasal Cannula 2.00 11/26/17 00:00 98.5 84 18 150/74 (99) 99 11/26/17 00:00 Nasal Cannula 2.00 11/25/17 20:51 97.4 80 20 138/89 (105) 96 11/25/17 20:00 Nasal Cannula 2.00 11/25/17 16:00 98.3 88 20 137/86 (103) 93 11/25/17 12:00 98.6 82 20 164/96 (118) 95 I/O 11/25/17 11/25/17 11/25/17 11/26/17 11/26/17 11/26/17 07:00 15:00 23:00 07:00 15:00 23:00 Intake Total 351 ml 200 ml 840 ml 520 ml Output Total 100 ml Balance 351 ml 200 ml 740 ml 520 ml Intake Oral 840 ml 520 ml IV Total 351 ml 200 ml Output Urine Total 100 ml # Voids 3 # Bowel Movements 0 0 Result Diagram: 11/25/17 1310 11/25/17 1310 Objective Remarks GENERAL: NAD SKIN: Warm and dry. HEAD: Normocephalic. EYES: No scleral icterus. No injection or drainage. NECK: Supple, trachea midline. No JVD or lymphadenopathy. CARDIOVASCULAR: Regular rate and rhythm without murmurs, gallops, or rubs. RESPIRATORY: Breath sounds decrease R>L. No accessory muscle use. GASTROINTESTINAL: Abdomen soft, non-tender, nondistended. MUSCULOSKELETAL: No cyanosis, or edema. BACK: Nontender without obvious deformity. No CVA tenderness. A/P Problem List: (1) Bacteremia due to Gram-positive bacteria ICD Code: R78.81 - Bacteremia (2) Postobstructive pneumonia ICD Code: J18.9 - Pneumonia, unspecified organism (3) Pulmonary mass ICD Code: R91.8 - Other nonspecific abnormal finding of lung field Status: Acute (4) Pleural effusion, right ICD Code: J90 - Pleural effusion, not elsewhere classified Status: Acute (5) Severe sepsis ICD Code: A41.9 - Sepsis, unspecified organism; R65.20 - Severe sepsis without septic shock Status: Acute Assessment and Plan 62-year-old man with Severe sepsis-Resolved Pneumonia postobstructive. Currently on IV vancomycin and Zosyn Hgxzrrmyyc-tlvq-hpvvurwf cocci Currently on vancomycin and Zosyn appreciate input from infectious disease specialist Repeat blood culture NTD Right bronchus occlusion Right lung mass likely underlying malignancy Patient with a known history of right lung mass, seen by pulmonary medicine back in 2016 however biopsy was not considered at a time per pulmonary medicine Pulmonary medicine consultation appreciate and plan for Bronchoscopy with biopsy today 11/26/17 Lactic acid acidosis Resolved COPD exacerbation with respiratory failure Continue IV Solu-Medrol 20mg Q12H, continue DuoNeb, IV antibiotics, LABA Diabetes type 2 Continue metformin Currently on ISS Hypertension Schizoaffective disorder Hyperlipidemia Dementia Continue treatment for other chronic medical conditions DVT prophylaxis with Lovenox. Jose Callejas MD Nov 26, 2017 10:28
[2017-11-26] MEDS: RESP: ALBUTEROL 2.5 MG/IPRATROPIUM 0.5 MG NEB (PRN) NEB (11:18)
[2017-11-26] MEDS ORDERED: RESP: ALBUTEROL 2.5 MG/3 ML NEB (PRN) NEB (12:00)
[2017-11-26] MEDS ORDERED: PHENYLEPH/NS 1000 MCG/10 ML SYR IV ONE (12:00)
[2017-11-26] MEDS ORDERED: SUCCINYLCHOLINE CHLORIDE 200 MG/10 ML VIAL IV ONE (12:00)
[2017-11-26] MEDS ORDERED: LIDOCAINE HCL 1% PF 5 ML SYRINGE OTHER ONE (12:00)
[2017-11-26] MEDS ORDERED: PROPOFOL 200 MG/20 ML AMP IV ONE (12:00)
[2017-11-26] MEDS ORDERED: ePHEDrine/NS 25 MG/5 ML SYRINGE IV ONE (12:00)
[2017-11-26] MEDS ORDERED: DO NOT ADM ANY ANTICOAGULANT DRUGS PRN (12:10)
[2017-11-26] MEDS ORDERED: *ONDANSETRON 4 MG VIAL PERIprocedural Use ONLY ONE (12:31)
--- NOTE | 2017-11-26 13:09 | RADRPT ---
EXAM DATE/TIME: 11/26/2017 12:31 [facility] COMPARISON: CHEST SINGLE AP, November 21, 2017, 15:52. INDICATIONS : Post bronchoscopy. MEDICAL HISTORY : Cardiovascular disease. Hypertension Chronic obstructive pulmonary disease. diabetes, prostate ca ncer SURGICAL HISTORY : None. ENCOUNTER: Initial ACUITY: 1 day PAIN SCORE: 0/10 LOCATION: Bilateral chest FINDINGS: A single view of the chest demonstrates right-sided pleural effusion and volume loss with mediastinal shift from left to right. No pneumothorax post bronchoscopy. Minimal left basilar atelectasis. CONCLUSION: 1. No pneumothorax identified post bronchoscopy. Chencho Stevenson MD on November 26, 2017 at 13:06 Board Certified Radiologist. This report was verified electronically.
--- NOTE | 2017-11-26 13:47 | HHI.IDPN ---
Subjective Subjective Remarks Patient is a 62-year-old male, resides in a fdc, brought into the hospital for evaluation of altered mental status. He apparently has been noted to be more confused. Evaluation revealed increase in size in his right lung mass, and CT showed progression of his tumor. Patient was first found to have a lung mass in 2015. He had a bronchoscopy and cytology did not show any malignancy. Could not really get any information to from the patient as to what kind of follow-up was done at that time. On review of his systems, patient stated that he is short of breath, but could not tell me how long. She has a cough and sometimes brings up yellowish phlegm. He also complained of some pleuritic chest pain and points to the sternal area. Apparently was some episodes of vomiting twice in the last week. He denies any diarrhea or any urinary complaints. There is no mention of any syncopal episode. Since admission he has not been febrile. His WBC is 12,000. 2 blood cultures on admission is now reported as growing gram-positive cocci in pairs and clusters. CT scan of the chest shows progression of the right hilar mass compared to July 2016 with encasement of the central bronchus, and complete obstruction of the right upper lobe bronchus. There is also compression of the superior vena cava and azygous vein. There is moderate right pleural effusion and partial atelectasis of the right lung. Infectious disease consultation has been requested to evaluate the patient with postobstructive pneumonia and bacteremia. Notes reviewed Just came back from bronch (Op note not available) No fever On nasal O2 BC with 2 diff Coag Neg Staph Repeat BC negative On steroids WBC elevated Antibiotics Current Medications Zosyn Medications (Trade) Dose Ordered Sig/Kelsy Route Start Time Stop Time Status Last Admin Piperacillin Sod/ Tazobactam Sod 100 ml @ 200 mls/hr Q6H IV 11/22/17 02:00 11/26/17 09:12 (NS Flush) 2 ml UNSCH PRN IV FLUSH 11/22/17 00:15 11/22/17 01:54 (NS Flush) 2 ml BID IV FLUSH 11/22/17 09:00 11/26/17 09:10 (Narcan Inj) 0.4 mg UNSCH PRN IV PUSH 11/22/17 00:15 (Duoneb Neb) 1 ampule Q2HR NEB PRN NEB 11/22/17 00:15 11/26/17 11:18 (Lovenox Inj) 40 mg Q24H SQ 11/22/17 09:00 11/25/17 08:34 (Tenormin) 50 mg BID PO 11/22/17 09:00 11/26/17 09:09 (Buspar) 10 mg BID PO 11/22/17 09:00 11/26/17 09:09 (Colace) 100 mg BID PO 11/22/17 09:00 11/26/17 09:09 (Lexapro) 10 mg DAILY PO 11/22/17 09:00 11/26/17 09:09 (Prinivil) 5 mg DAILY PO 11/22/17 09:00 11/26/17 09:10 (Procardia Xl) 60 mg DAILY PO 11/22/17 09:00 11/26/17 09:09 (Tears Naturale Opth Soln) 1 drop TID EACH EYE 11/22/17 09:00 11/26/17 09:00 (risperDAL) 6 mg HS PO 11/22/17 21:00 11/25/17 21:02 (Artane) 2 mg TID PO 11/22/17 09:00 11/26/17 09:09 (Pravachol) 40 mg HS PO 11/22/17 21:00 11/25/17 21:02 (Vasotec Inj) 2.5 mg Q6H PRN IV PUSH 11/22/17 03:15 11/23/17 14:05 (SoluMEDROL INJ) 20 mg Q12HR IV PUSH 11/23/17 21:00 11/26/17 09:09 (Protonix) 40 mg DAILY PO 11/24/17 09:00 11/26/17 09:09 (Tylenol) 650 mg Q4H PRN PO 11/23/17 12:30 11/23/17 13:24 (Zofran Inj) 4 mg Q6H PRN IV PUSH 11/23/17 12:30 (D50w (Vial) Inj) 50 ml UNSCH PRN IV PUSH 11/24/17 10:45 (Glucagon Inj) 1 mg UNSCH PRN OTHER 11/24/17 10:45 (NovoLOG SUPPLEMENTAL SCALE) 1 ACHS SLIDING SCALE SQ 11/24/17 12:00 2/19/18 21:03 (Glucophage) 250 mg BIDPC PO 11/24/17 10:45 11/25/17 16:59 (Pill Splitter) 1 ea UNSCH PRN OTHER 11/24/17 10:45 Dextrose/Sodium Chloride 1,000 ml @ 0 mls/hr Q0M IV 11/25/17 12:57 (Albuterol Concentrated Neb) 2.5 mg ANIMAL CHIROPRACTOR NEB 11/25/17 13:00 11/29/17 12:59 Lactated Ringer's 1,000 ml @ 30 mls/hr Q24H PRN IV 11/25/17 16:30 11/28/17 16:29 Sodium Chloride 500 ml @ 30 mls/hr [id number] PRN IV 11/25/17 16:30 11/28/17 16:29 (Lopressor) 25 mg ANIMAL CHIROPRACTOR PRN PO 11/25/17 16:30 11/28/17 16:29 (Betadine 5% Antisepsis Kit) 1 applic ANIMAL CHIROPRACTOR PRN EACH NARE 11/25/17 16:30 11/28/17 16:29 (Chlorhexidine 2% Cloth) 3 pack ANIMAL CHIROPRACTOR PRN TOPICAL 11/25/17 16:30 11/28/17 16:29 (Albuterol Neb) 2.5 mg UNSCH X1 PRN NEB 11/26/17 12:00 11/27/17 11:59 Lines PIV Past Medical History Hypertension Diabetes COPD Schizoaffective disorder Hyperlipidemia Dementia R hilar mass since 2016 Past Surgical History Appendectomy Hernia repair Allergies: Coded Allergies: aspirin (Unverified Allergy, Severe, 05/21/17) chlorpromazine (Unverified Allergy, Unknown, 05/21/17) haloperidol (Unverified Allergy, Unknown, 05/21/17) Per sister in law - Anita Taylor [phone]. Per patient, she manages his medications and administration for him. Objective . Vital Signs Date Time Temp Pulse Resp B/P (MAP) Pulse Ox O2 Delivery O2 Flow Rate FiO2 11/26/17 13:15 98.5 80 17 117/77 (90) 94 Room Air 11/26/17 13:00 80 18 128/83 (98) 96 Nasal Cannula 2 11/26/17 12:45 82 21 120/75 (90) 94 Nasal Cannula 2 11/26/17 12:30 83 14 119/76 (90) 98 Nasal Cannula 2 11/26/17 12:16 98.4 83 16 122/83 (96) 96 Nasal Cannula 2 11/26/17 11:21 99 Nasal Cannula 2.00 11/26/17 08:00 98.1 79 20 152/92 (112) 97 11/26/17 04:41 98.2 78 18 101/68 (79) 98 11/26/17 04:00 Nasal Cannula 2.00 11/26/17 03:45 97 Nasal Cannula 2.00 11/26/17 00:00 98.5 84 18 150/74 (99) 99 11/26/17 00:00 Nasal Cannula 2.00 11/25/17 20:51 97.4 80 20 138/89 (105) 96 11/25/17 20:00 Nasal Cannula 2.00 11/25/17 16:00 98.3 88 20 137/86 (103) 93 11/26/17 11/26/17 11/27/17 14:59 22:59 06:59 # Voids 3 . Laboratory Tests Test 11/25/17 13:10 White Blood Count 16.9 TH/MM3 Red Blood Count 3.72 MIL/MM3 Hemoglobin 10.3 GM/DL Hematocrit 31.5 % Mean Corpuscular Volume 84.9 FL Mean Corpuscular Hemoglobin 27.7 PG Mean Corpuscular Hemoglobin Concent 32.6 % Red Cell Distribution Width 16.5 % Platelet Count 819 TH/MM3 Mean Platelet Volume 6.2 FL Neutrophils (%) (Auto) 87.3 % Lymphocytes (%) (Auto) 6.9 % Monocytes (%) (Auto) 5.6 % Eosinophils (%) (Auto) 0.0 % Basophils (%) (Auto) 0.2 % Neutrophils # (Auto) 14.8 TH/MM3 Lymphocytes # (Auto) 1.2 TH/MM3 Monocytes # (Auto) 0.9 TH/MM3 Eosinophils # (Auto) 0.0 TH/MM3 Basophils # (Auto) 0.0 TH/MM3 CBC Comment DIFF FINAL Differential Comment Laboratory Tests Test 11/25/17 13:10 Blood Urea Nitrogen 15 MG/DL Creatinine 1.10 MG/DL Random Glucose 198 MG/DL Calcium Level 9.0 MG/DL Sodium Level 136 MEQ/L Potassium Level 4.3 MEQ/L Chloride Level 98 MEQ/L Carbon Dioxide Level 29.5 MEQ/L Anion Gap 9 MEQ/L Estimat Glomerular Filtration Rate 83 ML/MIN Microbiology Date/Time Source Procedure Growth Status 11/26/17 11:50 Bronchial Washings Right Upper Lobe Fungal Smear Pending Received 11/26/17 11:50 Bronchial Washings Right Upper Lobe Fungal Culture Pending Received 11/26/17 11:50 Bronchial Washings Right Upper Lobe Acid Fast Stain Pending Received 11/26/17 11:50 Bronchial Washings Right Upper Lobe Mycobacterial Culture Pending Received 11/26/17 11:50 Bronchial Washings Right Upper Lobe Gram Stain Pending Received 11/26/17 11:50 Bronchial Washings Right Upper Lobe Bronchial Culture Pending Received Imaging Last Impressions Chest X-Ray 11/21/17 1538 Signed Impressions: Service Date/Time: November 15:52 - CONCLUSION: 1. Large right pleural effusion with associated diffuse airspace disease throughout the right lung. 2. 4.6 cm masslike opacity in the right upper lung zone in region of smaller mass noted on prior exam. This likely reflects interval enlargement of this mass. Consider CT examination for further evaluation as indicated. Walter Covarrubias MD Chest CT 11/21/17 0000 Signed Impressions: Service Date/Time: November 18:56 - CONCLUSION: 1. Progression of right hilar mass since July 2016 with encasement of the central bronchi as above and complete obstruction of the right upper lobe bronchus. There is also compression of the superior vena cava and azygos vein and moderate right effusion and partial atelectasis of the right lung as above. Small pericardial effusion. Chencho Stevenson MD Physical Exam GENERAL: awake and alert, not in respiratory distress. SKIN: Cool, and moist. No generalized rash HEAD: Atraumatic. Normocephalic. No temporal wasting, or tenderness. EYES: [place] conjunctiva. No petechia or hemorrhage. Pupils equal, round and reactive to light. Extraocular movements full and intact. No scleral icterus. No injection or drainage. EARS, NOSE AND THROAT: Nose without bleeding or purulent nasal discharge. No sinus tenderness. Mucous membranes pink and moist. No oral lesions noted. NECK: Trachea midline. Supple and not tender, no meningeal signs CARDIOVASCULAR: Regular rate and rhythm. No murmurs, rubs or gallops heard RESPIRATORY: Clear to auscultation on L, decreased BS whole R lung. ABDOMEN: Soft, non-tender, nondistended. Bowel sounds present and normoactive. No guarding. No rebound. No organomegaly. EXTREMITIES: No clubbing, cyanosis, or edema. No joint effusion, has good ROM. No calf tenderness. Well perfused and warm. NEUROLOGICAL: Non focal PSYCHIATRIC: Flat affect, calm and cooperative. LINE: No evidence of infection Assessment & Plan Remarks IMPRESSION Post obstructive pneumonia due to enlarging R hilar mass encasing bronchus as well as SVC and azygous vein Bacteremia, 2 diff Coag Neg Staph likely cotaminant Hx schizoaffective disorder RECOMMENDATION Continue Zosyn Follow bronch C/S Follow cytology and lung biopsy result Monitor progress D/W Crystal Plummer MD Nov 26, 2017 13:47
[2017-11-26] MEDS: ENOXAPARIN SODIUM 40 MG/0.4 ML SYRINGE SQ SCH (15:53)
--- NOTE | 2017-11-26 18:41 | MP ---
cc: ABEBE KAPOOR DATE OF SURGERY 11/26/2017 PROCEDURE PERFORMED Bronchoscopy with biopsy, brushings, washings. PREOPERATIVE DIAGNOSIS Right lung mass. POSTOPERATIVE DIAGNOSIS Right lung mass. ANESTHESIA General with intubation. SURGEON Dr. Courtney Kapoor PROCEDURE AND FINDINGS The patient was intubated under general anesthesia. Following this the Olympus IT 180 bronchoscope was used to visualize the bronchi. Scope was advanced via the endotracheal tube into the trachea. The trachea appeared normal. The issac was widened with an irregular mucosal lesion and the scope was then advanced over the right mainstem bronchus. The right mainstem bronchus leading towards the right upper lobe bronchus was involved with an irregular lesion occluding the right upper lobe bronchus by over 70%. The mucosa was friable. The lesion then was noted to be involving the right bronchus intermedius as well as the right middle lobe bronchi and saline washings were done from this area. Mucoid secretions were noted which were suctioned out. Brushings were done from here for cytology and bronchial biopsies were done from the right upper lobe bronchus. Mild bleeding was observed, controlled with epinephrine solution and saline washings. The scope could not be advanced towards the right middle lower lobe bronchi. The scope was then advanced towards the left mainstem and left upper lobe segmental bronchi. These bronchi demonstrated no endobronchial lesions. Next the left lower lobe segmental bronchi was visualized which demonstrated no endobronchial lesions. Saline washings were done and procedure was then terminated. The patient tolerated the procedure well. MD ANGEL Schuler/AIME /12:02 PM /6:24 PM
[2017-11-26] MEDS: risperiDONE 3 MG TAB PO SCH (20:28)
[2017-11-26] MEDS: PRAVASTATIN SOD 40 MG TAB PO SCH (20:29)
[2017-11-27] VITALS (7 sets, daily range): BP systolic 111–139; BP diastolic 69–94; PULSE 78–92; RESP 16–18; TEMP 98.2–98.7; O2SAT 94–96
[2017-11-27] MEDS: PIPERACIL-TAZO 4.5 GM PREMIX 100 ML IV SCH ×4 (01:56→20:35)
[2017-11-27 08:32] LABS: AUTOMATED NEUTROPHIL # 11.6 TH/MM3 (1.8-7.7); BASOPHIL % 0.1 % (0.0-2.0); EOSINOPHIL % 0.3 % (0.0-4.0); HEMATOCRIT 30.2 % (39.0-51.0); HEMOGLOBIN 9.8 GM/DL (13.0-17.0); LYMPH % 12.1 % (9.0-44.0); LYMPHOCYTE # 1.8 TH/MM3 (1.0-4.8); MEAN CELL VOLUME 84.8 FL (80.0-100.0); MEAN CORPUSCULAR HEMOGLOBIN 27.5 PG (27.0-34.0); MEAN CORPUSCULAR HGB CONC 32.5 % (32.0-36.0); MEAN PLATELET VOLUME 6.7 FL (7.0-11.0); MONO % 7.5 % (0.0-8.0); MONOCYTE # 1.1 TH/MM3 (0-0.9); PLATELET COUNT 721 TH/MM3 (150-450); RED BLOOD COUNT 3.56 MIL/MM3 (4.50-5.90); RED CELL DISTRIBUTION WIDTH 16.7 % (11.6-17.2); WHITE BLOOD COUNT 14.6 TH/MM3 (4.0-11.0)
[2017-11-27] MEDS: INSULIN ASPART SUPPLEMENTAL SCALE SQ SCH ×4 (08:52→20:36)
[2017-11-27] MEDS: NIFEdipine 60 MG SUSTAINED RELEASE TAB PO SCH (08:53)
[2017-11-27] MEDS: metFORMIN HCL 500 MG TAB PO SCH ×2 (08:53→18:21)
[2017-11-27] MEDS: LISINOPRIL 5 MG TAB PO SCH (08:53)
[2017-11-27] MEDS: DOCUSATE SODIUM 100 MG CAP PO SCH ×2 (08:53→20:35)
[2017-11-27] MEDS: PANTOPRAZOLE SOD 40 MG DELAYED RELEASE TAB PO SCH (08:53)
[2017-11-27] MEDS: busPIRone HCL 10 MG TAB PO SCH ×2 (08:53→20:36)
[2017-11-27] MEDS: ESCITALOPRAM OXALATE 10 MG TAB PO SCH (08:53)
[2017-11-27] MEDS: ATENOLOL 50 MG TAB PO SCH ×2 (08:53→20:35)
[2017-11-27] MEDS: ENOXAPARIN SODIUM 40 MG/0.4 ML SYRINGE SQ SCH (08:53)
[2017-11-27] MEDS: TRIHEXYPHENIDYL HCL 2 MG TAB PO SCH ×3 (08:53→18:21)
[2017-11-27] MEDS: methylPREDNISolone SOD SUCC 40 MG/1 ML VIAL IV PUSH SCH (08:53)
[2017-11-27 08:54] LABS: BICARBONATE 26.8 MEQ/L (21.0-32.0); CALCIUM 8.5 MG/DL (8.5-10.1); CREATININE 0.76 MG/DL (0.60-1.30)
[2017-11-27] MEDS: ARTIFICIAL TEARS OPTH SOLN 15 ML BTL EACH EYE SCH ×3 (08:54→18:21)
[2017-11-27] MEDS: SODIUM CHLORIDE 0.9% FLUSH 10 ML FLUSH IV FLUSH SCH ×2 (08:54→20:35)
--- NOTE | 2017-11-27 11:24 | HHI.PR ---
Subjective Remarks Follow-up post obstructive pneumonia/sepsis/bacteremia/right lung mass 11/22/17-patient seen and examined, still with shortness of breath but denies any chest pain. Currently afebrile 11/23/17-patient seen and examined, no acute event overnight. Currently afebrile. Repeat blood culture negative to date. Denies any significant shortness of breath. 11/24/17-patient seen and examined, blood glucose labile. Currently afebrile. Stable shortness of breath however denies chest pain. 11/25/17-patient seen and examined, no acute event overnight. Denies any chest pain or shortness of breath. Currently afebrile. 11/26/17-patient seen and examined, currently nothing by mouth pending bronchoscopy this morning. Some nonproductive cough with SOB 11/27/17-patient seen and examined, s/p lung biopsy . Breathing better. Denies any chest pain Objective Vitals Vital Signs Date Time Temp Pulse Resp B/P (MAP) Pulse Ox O2 Delivery O2 Flow Rate FiO2 11/27/17 10:04 95 11/27/17 08:01 98.6 82 18 118/85 (96) 95 11/27/17 08:00 Room Air 11/27/17 04:00 Room Air 11/27/17 04:00 98.5 85 16 133/87 (102) 96 11/27/17 00:00 Room Air 11/27/17 00:00 98.3 83 18 126/78 (94) 95 11/26/17 20:25 98 Nasal Cannula 2.00 11/26/17 20:00 Room Air 11/26/17 20:00 98.0 86 18 133/81 (98) 95 11/26/17 16:00 97.1 80 20 131/61 (84) 99 11/26/17 13:15 98.5 80 17 117/77 (90) 94 Room Air 11/26/17 13:00 80 18 128/83 (98) 96 Nasal Cannula 2 11/26/17 12:45 82 21 120/75 (90) 94 Nasal Cannula 2 11/26/17 12:30 83 14 119/76 (90) 98 Nasal Cannula 2 11/26/17 12:16 98.4 83 16 122/83 (96) 96 Nasal Cannula 2 I/O 2/11/26/17 11/26/17 11/27/17 11/27/17 11/27/17 07:00 15:00 23:00 07:00 15:00 23:00 Intake Total 520 ml 100 ml 100 ml Output Total 250 ml 500 ml Balance 520 ml -250 ml 100 ml -400 ml Intake Oral 520 ml IV Total 100 ml 100 ml Output Urine Total 250 ml 500 ml # Voids 3 3 1 # Bowel Movements 0 1 1 Result Diagram: 11/27/1762311/27/17623 Objective Remarks GENERAL: NAD SKIN: Warm and dry. HEAD: Normocephalic. EYES: No scleral icterus. No injection or drainage. NECK: Supple, trachea midline. No JVD or lymphadenopathy. CARDIOVASCULAR: Regular rate and rhythm without murmurs, gallops, or rubs. RESPIRATORY: Breath sounds decrease R>L. No accessory muscle use. GASTROINTESTINAL: Abdomen soft, non-tender, nondistended. MUSCULOSKELETAL: No cyanosis, or edema. BACK: Nontender without obvious deformity. No CVA tenderness. A/P Problem List: (1) Bacteremia due to Gram-positive bacteria ICD Code: R78.81 - Bacteremia (2) Postobstructive pneumonia ICD Code: J18.9 - Pneumonia, unspecified organism (3) Pulmonary mass ICD Code: R91.8 - Other nonspecific abnormal finding of lung field Status: Acute (4) Pleural effusion, right ICD Code: J90 - Pleural effusion, not elsewhere classified Status: Acute (5) Severe sepsis ICD Code: A41.9 - Sepsis, unspecified organism; R65.20 - Severe sepsis without septic shock Status: Acute Assessment and Plan 62-year-old man with Severe sepsis-Resolved Pneumonia postobstructive. Currently on IV Zosyn [id number] cocci Currently on Zosyn appreciate input from infectious disease specialist Repeat blood culture NTD Right bronchus occlusion Right lung mass likely underlying malignancy Patient with a known history of right lung mass, seen by pulmonary medicine back in 2015 however biopsy was not considered at a time per pulmonary medicine Pulmonary medicine consultation appreciate s/p Bronchoscopy with biopsy pending Report Lactic acid acidosis Resolved COPD exacerbation with respiratory failure d/c IV Solu-Medrol 20mg Q12H and start PO Prednisone, continue DuoNeb, IV antibiotics, LABA Diabetes type 2 Continue metformin Currently on ISS Hypertension Schizoaffective disorder Hyperlipidemia Dementia Continue treatment for other chronic medical conditions DVT prophylaxis with Lovenox. Jose Callejas MD Nov 27, 2017 11:24
--- NOTE | 2017-11-27 12:41 | HHI.IDPN ---
Subjective Subjective Remarks Patient is a 62-year-old male, [facility], brought into the hospital for evaluation of altered mental status. He apparently has been noted to be more confused. Evaluation revealed increase in size in his right lung mass, and CT showed progression of his tumor. Patient was first found to have a lung mass in 2015. He had a bronchoscopy and cytology did not show any malignancy. Could not really get any information to from the patient as to what kind of follow-up was done at that time. On review of his systems, patient stated that he is short of breath, but could not tell me how long. She has a cough and sometimes brings up yellowish phlegm. He also complained of some pleuritic chest pain and points to the sternal area. Apparently was some episodes of vomiting twice in the last week. He denies any diarrhea or any urinary complaints. There is no mention of any syncopal episode. Since admission he has not been febrile. His WBC is 12,000. 2 blood cultures on admission is now reported as growing gram-positive cocci in pairs and clusters. CT scan of the chest shows progression of the right hilar mass compared to July 2016 with encasement of the central bronchus, and complete obstruction of the right upper lobe bronchus. There is also compression of the superior vena cava and azygous vein. There is moderate right pleural effusion and partial atelectasis of the right lung. Infectious disease consultation has been requested to evaluate the patient with postobstructive pneumonia and bacteremia. Notes reviewed No fever Not SOB No new complaint Bronch findings noted Path report pending Bronch C/S preliminary normal resp ever On steroids - to be changed to po WBC elevated Antibiotics Current Medications Zosyn Medications (Trade) Dose Ordered Sig/Kelsy Route Start Time Stop Time Status Last Admin Piperacillin Sod/ Tazobactam Sod 100 ml @ 200 mls/hr Q6H IV 11/22/17 02:00 11/27/17 08:56 (NS Flush) 2 ml UNSCH PRN IV FLUSH 11/22/17 00:15 11/22/17 01:54 (NS Flush) 2 ml BID IV FLUSH 11/22/17 09:00 11/27/17 08:54 (Narcan Inj) 0.4 mg UNSCH PRN IV PUSH 11/22/17 00:15 (Duoneb Neb) 1 ampule Q2HR NEB PRN NEB 11/22/17 00:15 11/26/17 11:18 (Lovenox Inj) 40 mg Q24H SQ 11/22/17 09:00 11/27/17 08:53 (Tenormin) 50 mg BID PO 11/22/17 09:00 11/27/17 08:53 (Buspar) 10 mg BID PO 11/22/17 09:00 11/27/17 08:53 (Colace) 100 mg BID PO 11/22/17 09:00 11/27/17 08:53 (Lexapro) 10 mg DAILY PO 11/22/17 09:00 11/27/17 08:53 (Prinivil) 5 mg DAILY PO 11/22/17 09:00 11/27/17 08:53 (Procardia Xl) 60 mg DAILY PO 11/22/17 09:00 11/27/17 08:53 (Tears Naturale Opth Soln) 1 drop TID EACH EYE 11/22/17 09:00 11/27/17 08:54 (risperDAL) 6 mg HS PO 11/22/17 21:00 11/26/17 20:28 (Artane) 2 mg TID PO 11/22/17 09:00 11/27/17 08:53 (Pravachol) 40 mg HS PO 11/22/17 21:00 11/26/17 20:29 (Vasotec Inj) 2.5 mg Q6H PRN IV PUSH 11/22/17 03:15 11/23/17 14:05 (Protonix) 40 mg DAILY PO 11/24/17 09:00 11/27/17 08:53 (Tylenol) 650 mg Q4H PRN PO 11/23/17 12:30 11/23/17 13:24 (Zofran Inj) 4 mg Q6H PRN IV PUSH 11/23/17 12:30 (D50w (Vial) Inj) 50 ml UNSCH PRN IV PUSH 11/24/17 10:45 (Glucagon Inj) 1 mg UNSCH PRN OTHER 11/24/17 10:45 (NovoLOG SUPPLEMENTAL SCALE) 1 ACHS SLIDING SCALE SQ 11/24/17 12:00 11/27/17 08:52 (Glucophage) 250 mg BIDPC PO 11/24/17 10:45 11/27/17 08:53 (Pill Splitter) 1 ea UNSCH PRN OTHER 11/24/17 10:45 Dextrose/Sodium Chloride 1,000 ml @ 0 mls/hr Q0M IV 11/25/17 12:57 (Albuterol Concentrated Neb) 2.5 mg RIVETING MACHINE OPERATOR NEB 11/25/17 13:00 11/29/17 12:59 Lactated Ringer's 1,000 ml @ 30 mls/hr Q24H PRN IV 11/25/17 16:30 11/28/17 16:29 Sodium Chloride 500 ml @ 30 mls/hr [id number] PRN IV 11/25/17 16:30 11/28/17 16:29 (Lopressor) 25 mg RIVETING MACHINE OPERATOR PRN PO 11/25/17 16:30 11/28/17 16:29 (Betadine 5% Antisepsis Kit) 1 applic RIVETING MACHINE OPERATOR PRN EACH NARE 11/25/17 16:30 11/28/17 16:29 (Chlorhexidine 2% Cloth) 3 pack RIVETING MACHINE OPERATOR PRN TOPICAL 11/25/17 16:30 11/28/17 16:29 (Deltasone) 20 mg DAILY PO 11/28/17 09:00 Lines PIV Past Medical History Hypertension Diabetes COPD Schizoaffective disorder Hyperlipidemia Dementia R hilar mass since 2016 Past Surgical History Appendectomy Hernia repair Allergies: Coded Allergies: aspirin (Unverified Allergy, Severe, 05/21/17) chlorpromazine (Unverified Allergy, Unknown, 05/21/17) haloperidol (Unverified Allergy, Unknown, 05/21/17) Per sister in - Anita Taylor [phone]. Per patient, she manages his medications and administration for him. Objective . Vital Signs Date Time Temp Pulse Resp B/P (MAP) Pulse Ox O2 Delivery O2 Flow Rate FiO2 11/27/17 12:01 98.7 78 18 139/85 (103) 95 11/27/17 10:04 95 11/27/17 08:01 98.6 82 18 118/85 (96) 95 11/27/17 08:00 Room Air 11/27/17 04:00 Room Air 11/27/17 04:00 98.5 85 16 133/87 (102) 96 11/27/17 00:00 Room Air 11/27/17 00:00 98.3 83 18 126/78 (94) 95 11/26/17 20:25 98 Nasal Cannula 2.00 11/26/17 20:00 Room Air 11/26/17 20:00 98.0 86 18 133/81 (98) 95 11/26/17 16:00 97.1 80 20 131/61 (84) 99 11/26/17 13:15 98.5 80 17 117/77 (90) 94 Room Air 11/26/17 13:00 80 18 128/83 (98) 96 Nasal Cannula 2 11/26/17 12:45 82 21 120/75 (90) 94 Nasal Cannula 2 . Laboratory Tests Test 11/25/17 13:10 11/27/17 06:24 White Blood Count 16.9 TH/MM3 14.6 TH/MM3 Red Blood Count 3.72 MIL/MM3 3.56 MIL/MM3 Hemoglobin 10.3 GM/DL 9.8 GM/DL Hematocrit 31.5 % 30.2 % Mean Corpuscular Volume 84.9 FL 84.8 FL Mean Corpuscular Hemoglobin 27.7 PG 27.5 PG Mean Corpuscular Hemoglobin Concent 32.6 % 32.5 % Red Cell Distribution Width 16.5 % 16.7 % Platelet Count 819 TH/MM3 721 TH/MM3 Mean Platelet Volume 6.2 FL 6.7 FL Neutrophils (%) (Auto) 87.3 % 80.0 % Lymphocytes (%) (Auto) 6.9 % 12.1 % Monocytes (%) (Auto) 5.6 % 7.5 % Eosinophils (%) (Auto) 0.0 % 0.3 % Basophils (%) (Auto) 0.2 % 0.1 % Neutrophils # (Auto) 14.8 TH/MM3 11.6 TH/MM3 Lymphocytes # (Auto) 1.2 TH/MM3 1.8 TH/MM3 Monocytes # (Auto) 0.9 TH/MM3 1.1 TH/MM3 Eosinophils # (Auto) 0.0 TH/MM3 0.0 TH/MM3 Basophils # (Auto) 0.0 TH/MM3 0.0 TH/MM3 CBC Comment DIFF FINAL DIFF FINAL Differential Comment Laboratory Tests Test 11/25/17 13:10 11/26/17 13:48 11/27/17 06:24 Blood Urea Nitrogen 15 MG/DL 18 MG/DL Creatinine 1.10 MG/DL 0.76 MG/DL Random Glucose 198 MG/DL 144 MG/DL Calcium Level 9.0 MG/DL 8.5 MG/DL Sodium Level 136 MEQ/L 136 MEQ/L Potassium Level 4.3 MEQ/L 3.9 MEQ/L Chloride Level 98 MEQ/L 100 MEQ/L Carbon Dioxide Level 29.5 MEQ/L 26.8 MEQ/L Anion Gap 9 MEQ/L 9 MEQ/L Estimat Glomerular Filtration Rate 83 ML/MIN 127 ML/MIN B-Type Natriuretic Peptide 62 PG/ML Microbiology Date/Time Source Procedure Growth Status 11/26/17 11:50 Bronchial Washings Right Upper Lobe Fungal Smear - Final NO FUNGAL ELEMENTS SEEN. Resulted 11/26/17 11:50 Bronchial Washings Right Upper Lobe Fungal Culture Pending Resulted 11/26/17 11:50 Bronchial Washings Right Upper Lobe Acid Fast Stain - Final NO ACID FAST BACILLI SEEN Resulted 11/26/17 11:50 Bronchial Washings Right Upper Lobe Mycobacterial Culture Pending Resulted 11/26/17 11:50 Bronchial Washings Right Upper Lobe Gram Stain - Final Resulted 11/26/17 11:50 Bronchial Washings Right Upper Lobe Bronchial Culture - Preliminary MODERATE GROWTH NORMAL RESPIRATORY FL... Resulted Imaging Last Impressions Chest X-Ray 11/21/17 1538 Signed Impressions: Service Date/Time: November 15:52 - CONCLUSION: 1. Large right pleural effusion with associated diffuse airspace disease throughout the right lung. 2. 4.6 cm masslike opacity in the right upper lung zone in region of smaller mass noted on prior exam. This likely reflects interval enlargement of this mass. Consider CT examination for further evaluation as indicated. Walter Covarrubias MD Chest CT 11/21/17 0000 Signed Impressions: Service Date/Time: November 18:56 - CONCLUSION: 1. Progression of right hilar mass since July 2016 with encasement of the central bronchi as above and complete obstruction of the right upper lobe bronchus. There is also compression of the superior vena cava and azygos vein and moderate right effusion and partial atelectasis of the right lung as above. Small pericardial effusion. Chencho Stevenson MD Physical Exam GENERAL: awake and alert, not in respiratory distress. SKIN: Cool, and moist. No generalized rash HEAD: Atraumatic. Normocephalic. No temporal wasting, or tenderness. EYES: Haynes conjunctiva. No petechia or hemorrhage. Pupils equal, round and reactive to light. Extraocular movements full and intact. No scleral icterus. No injection or drainage. EARS, NOSE AND THROAT: Nose without bleeding or purulent nasal discharge. No sinus tenderness. Mucous membranes pink and moist. No oral lesions noted. NECK: Trachea midline. Supple and not tender, no meningeal signs CARDIOVASCULAR: Regular rate and rhythm. No murmurs, rubs or gallops heard RESPIRATORY: Clear to auscultation on L, decreased BS whole R lung. ABDOMEN: Soft, non-tender, nondistended. Bowel sounds present and normoactive. No guarding. No rebound. No organomegaly. EXTREMITIES: No clubbing, cyanosis, or edema. No joint effusion, has good ROM. No calf tenderness. Well perfused and warm. NEUROLOGICAL: Non focal PSYCHIATRIC: Flat affect, calm and cooperative. LINE: No evidence of infection Assessment & Plan Remarks IMPRESSION Post obstructive pneumonia due to enlarging R hilar mass encasing bronchus as well as SVC and azygous vein Bacteremia, 2 diff Coag Neg Staph likely cotaminant Hx schizoaffective disorder RECOMMENDATION Continue Zosyn Follow bronch C/S Follow cytology and lung biopsy result Monitor progress Crystal Burrell MD Nov 27, 2017 12:41
[2017-11-27] MEDS: PRAVASTATIN SOD 40 MG TAB PO SCH (20:35)
[2017-11-27] MEDS: risperiDONE 3 MG TAB PO SCH (20:35)
[2017-11-28] VITALS (8 sets, daily range): BP systolic 112–153; BP diastolic 51–99; PULSE 87–102; RESP 17–20; TEMP 98.2–98.9; O2SAT 94–97
[2017-11-28] MEDS: PIPERACIL-TAZO 4.5 GM PREMIX 100 ML IV SCH ×4 (01:55→20:43)
[2017-11-28 06:57] LABS: AUTOMATED NEUTROPHIL # 10.5 TH/MM3 (1.8-7.7); BASOPHIL % 0.2 % (0.0-2.0); EOSINOPHIL # 0.1 TH/MM3 (0-0.4); EOSINOPHIL % 0.7 % (0.0-4.0); HEMATOCRIT 29.9 % (39.0-51.0); HEMOGLOBIN 9.8 GM/DL (13.0-17.0); LYMPH % 12.5 % (9.0-44.0); LYMPHOCYTE # 1.7 TH/MM3 (1.0-4.8); MEAN CELL VOLUME 84.4 FL (80.0-100.0); MEAN CORPUSCULAR HEMOGLOBIN 27.6 PG (27.0-34.0); MEAN CORPUSCULAR HGB CONC 32.7 % (32.0-36.0); MEAN PLATELET VOLUME 6.5 FL (7.0-11.0); MONO % 10.6 % (0.0-8.0); MONOCYTE # 1.5 TH/MM3 (0-0.9); PLATELET COUNT 626 TH/MM3 (150-450); RED BLOOD COUNT 3.55 MIL/MM3 (4.50-5.90); RED CELL DISTRIBUTION WIDTH 17.1 % (11.6-17.2); WHITE BLOOD COUNT 13.9 TH/MM3 (4.0-11.0)
[2017-11-28] MEDS: INSULIN ASPART SUPPLEMENTAL SCALE SQ SCH ×4 (08:00→20:44)
[2017-11-28] MEDS: DOCUSATE SODIUM 100 MG CAP PO SCH ×2 (08:31→20:44)
[2017-11-28] MEDS: busPIRone HCL 10 MG TAB PO SCH ×2 (08:31→20:44)
[2017-11-28] MEDS: predniSONE 20 MG TAB PO SCH (08:31)
[2017-11-28] MEDS: NIFEdipine 60 MG SUSTAINED RELEASE TAB PO SCH (08:31)
[2017-11-28] MEDS: PANTOPRAZOLE SOD 40 MG DELAYED RELEASE TAB PO SCH (08:31)
[2017-11-28] MEDS: TRIHEXYPHENIDYL HCL 2 MG TAB PO SCH ×3 (08:32→17:57)
[2017-11-28] MEDS: metFORMIN HCL 500 MG TAB PO SCH ×2 (08:32→17:57)
[2017-11-28] MEDS: LISINOPRIL 5 MG TAB PO SCH (08:32)
[2017-11-28] MEDS: ENOXAPARIN SODIUM 40 MG/0.4 ML SYRINGE SQ SCH (08:32)
[2017-11-28] MEDS: SODIUM CHLORIDE 0.9% FLUSH 10 ML FLUSH IV FLUSH SCH ×2 (08:32→20:44)
[2017-11-28] MEDS: ESCITALOPRAM OXALATE 10 MG TAB PO SCH (08:32)
[2017-11-28] MEDS: ATENOLOL 50 MG TAB PO SCH ×2 (08:32→20:44)
[2017-11-28] MEDS: ACETAMINOPHEN 325 MG TAB PO PRN (08:43)
[2017-11-28] MEDS: ARTIFICIAL TEARS OPTH SOLN 15 ML BTL EACH EYE SCH ×3 (08:46→17:58)
--- NOTE | 2017-11-28 10:07 | MB ---
cc: LILIA MICHEL MD DATE OF CONSULTATION 11/28/2017 DATE OF 1955 TIME OF CONSULTATION 8:00 a.m. REASON FOR CONSULTATION New diagnosis of small cell carcinoma of lung primary. The tumor involves the right perihilar lung and is associated with a moderate size right-sided pleural effusion. The patient also has clinical evidence of right supraclavicular lymphadenopathy. CHIEF COMPLAINT Mr. Taylor verbalize difficulty breathing and pain in his chest, he points to the right parasternal area. Mr. Taylor has what is reported as a schizoaffective disorder and is difficult to understand, he mumbles mostly. The history has been mostly obtained from the electronic medical records. HISTORY OF PRESENT ILLNESS Mr. Taylor is a 62-year-old male, he tells me he is a of the [place] and follows up with his [facility] doctor. He lives at a snf facility and apparently has been a long-term resident. The patient tells me he is single, he was never , he has no children, but does have a sister named Anita who lives nearby. Mr. Taylor was brought into the hospital after he reported symptoms of difficulty breathing and chest pain to the staff at his residence. In the emergency department after transfer on 11/21/2017, he underwent imaging studies which included a CT scan. CT scan revealed a right hilar mass which appeared to be larger when compared to the mass noted in July 2016. Associated with this mass was a right-sided pleural effusion as well as collapse of a segment of the right upper lobe of the lung. The patient was evaluated by Dr. Kapoor of pulmonology, Dr. Kapoor performed a bronchoscopy on 11/26/2017 and identified an abnormal area/lesion involving the right upper lobe bronchus. Biopsies of this lesion was obtained and pathologic findings were consistent with small cell carcinoma. The oncology service has been asked to see him for further workup and management. PAST MEDICAL HISTORY The patient reports a history of: 1. Diabetes 2. Hypertension 3. Tobaccoism 4. He has a reported history of schizoaffective disorder, hyperlipidemia and dementia as well. PAST SURGICAL HISTORY Reported a history of hernia repair and appendectomy and bronchoscopy performed November of 2017. FAMILY HISTORY He is unable to provide. SOCIAL HISTORY He reports being a smoker. He is a [employer] and lives in a snf facility. ALLERGIES ASPIRIN, CHLORPROMAZINE, AND HALOPERIDOL. CURRENT INPATIENT MEDICATIONS 1. Zosyn 4.5 grams IV q.6 h 2. DuoNebs every 2 hours as needed for wheezing 3. Atenolol 50 mg p.o. b.i.d. 4. BuSpar 10 mg p.o. b.i.d. 5. Colace 100 mg p.o. b.i.d. 6. Enalapril 2.5 mg IV q.6 h as needed 7. Lovenox 40 mg subcu q.24 h 8. Lexapro 10 mg p.o. daily 9. Lisinopril 5 mg p.o. daily 10. Metformin 250 mg p.o. b.i.d. 11. Nifedipine 60 mg p.o. daily 12. Zofran 4 mg IV q.6 h 13. Pantoprazole 40 mcg p.o. daily 14. Pravastatin 40 mcg p.o. q.h.s. 15. Prednisone 20 mg p.o. daily 16. Risperdal 6 mg p.o. q.h.s. 17. Artane 2 mg p.o. t.i.d. REVIEW OF SYSTEMS The patient's major complaints of that of pain in the right substernal area and difficulty breathing. He denies difficulty swallowing, he denies loss of appetite, he does report having difficulty balancing and headaches as well. No other complaints reported. PHYSICAL EXAMINATION VITAL SIGNS: Temperature 98.6 degrees Fahrenheit, heart rate 95 beats minute, respiratory rate 17, blood pressure is 130/50, O2 sats 95% on room air. GENERAL PHYSICAL APPEARANCE: Mr. Taylor is a middle-aged male, he is sitting up in bed, he appears to be no acute distress and he is having his breakfast. He does mumble when he speaks and it is quite difficult to decipher what he is trying to say. I have had to ask him to repeat sentences and words multiple times to get a gist of what he is attempting to say. HEENT: Head is atraumatic, normocephalic, conjunctivae are mildly pale, sclerae are anicteric, EOMI, PERRLA. Oral exam, no pharyngeal erythema. No masses noted. He does have food particles in his mouth and on his tongue. NECK: No palpable cervical lymphadenopathy bilaterally, he does have a 2 cm rounded right supraclavicular lymph nodes noted. RESPIRATORY: Left lung, good air movement over the upper and middle lung zones, as well as lower lobe lung zones. On the right side, he has diminished breath sounds from the base up to the apex with what sounds like a pleural rub as well. CARDIOVASCULAR: Regular rate and rhythm, S1-S2. No obvious murmurs, rubs or gallops. ABDOMEN: Belly is protuberant, soft, no definite organ enlargement. EXTREMITIES: Lower extremities, no pretibial edema or calf tenderness. MEMBER CERTIFICATION MANAGER: No focal sensory or motor deficits. He does have 5/5 strength of the upper and lower extremities. LABORATORY FINDINGS Blood work dated 11/28/2017: WBC count 13.9, hemoglobin 9.8 gm/dl, hematocrit 30%, platelet count 626, absolute neutrophil count is 10.5. Chemistries: Sodium 136, potassium 3.9, chloride 100, bicarb 26.8, BUN is 18, creatinine 0.76, random glucose is 144, calcium 8.5. IMAGING STUDIES CT of the thorax dated 11/21/2017 indicates progression of right hilar mass since July of 2016 with enhancement of the central bronchi as above, complete obstruction of the right upper lobe bronchus. There is also compression of the superior vena cava and the azygos vein with moderate right-sided effusion and partial atelectasis of the right lung as noted above. Small pericardial effusion is noted. Pathology: Lung biopsy dated 12/04/2017 indicates findings consistent with small cell carcinoma with fibro-connective tissue. Immunohistochemical stains are positive for TTS-1, synaptophysin and chromogranin. ASSESSMENT Mr. Taylor is a 62-year-old male with an extensive previous history of tobaccoism, history of schizoaffective disorder, diabetes, hypertension and hyperlipidemia. This patient presented to [facility] with complaints of chest pain and difficulty breathing. He was transferred here from his snf facility where he is a long-term resident. Imaging studies revealed a mass involving the right lung with associated collapse of the right upper lobe secondary to obstruction and a right-sided pleural effusion. Clinical exam indicates a palpable right supraclavicular lymph node measuring 2 cm at the very least. A bronchoscopy was performed two days ago and a mass involving the right upper lobe bronchus was noted, biopsies confirm presence of small cell carcinoma. Oncology has been asked to see him for further workup and management. New diagnosis of small cell carcinoma of the lung. Apparently he was evaluated at this facility in July of [address] scan of the chest which revealed a right perihilar mass at that time and that mass was associated with a pleural effusion. I am not aware of workup that was done to further investigate this at that time. RECOMMENDATIONS Small cell carcinoma of the lung: Obtain staging studies including CT head and CT abdomen and pelvis. His disease is at the very least locally advanced with metastatic disease on clinical exam to the supraclavicular lymph nodes. I am concerned about his ability to tolerate aggressive multimodality therapy due to his schizoaffective disorder and apparent chronic physical debility which necessitates him being a resident of a snf facility. I will check in on him a little later today to review the results of his imaging studies and will call his sister Maribel to discuss goals of care. MD MESHA Nolan/GARRETT /8:31 AM /9:32 AM
[2017-11-28] MEDS ORDERED: DIATRIZOATE MEGLUM/DIATRIZOATE SOD 9 ML CUP PO ONE (10:15)
--- NOTE | 2017-11-28 11:49 | HHI.PR ---
Subjective Remarks Follow-up post obstructive pneumonia/sepsis/bacteremia/right lung mass 11/22/17-patient seen and examined, still with shortness of breath but denies any chest pain. Currently afebrile 11/23/17-patient seen and examined, no acute event overnight. Currently afebrile. Repeat blood culture negative to date. Denies any significant shortness of breath. 11/24/17-patient seen and examined, blood glucose labile. Currently afebrile. Stable shortness of breath however denies chest pain. 11/25/17-patient seen and examined, no acute event overnight. Denies any chest pain or shortness of breath. Currently afebrile. 11/26/17-patient seen and examined, currently nothing by mouth pending bronchoscopy this morning. Some nonproductive cough with SOB 11/27/17-patient seen and examined, s/p lung biopsy . Breathing better. Denies any chest pain 11/28/17-patient seen and examined, Biopsy of the lung is positive for small cell lung carcinoma. Stable and no complaint Objective Vitals Vital Signs Date Time Temp Pulse Resp B/P (MAP) Pulse Ox O2 Delivery O2 Flow Rate FiO2 11/28/17 08:06 98.2 100 20 153/99 (117) 96 11/28/17 08:00 Room Air 11/28/17 04:00 98.6 95 17 130/51 (77) 95 11/28/17 00:00 98.5 87 18 136/80 (98) 94 11/27/17 20:00 98.2 92 18 130/94 (106) 94 11/27/17 19:15 94 Room Air 21 11/27/17 16:16 98.5 83 17 111/69 (83) 95 11/27/17 12:01 98.7 78 18 139/85 (103) 95 I/O 11/27/17 11/27/17 11/27/17 11/28/17 11/28/17 11/28/17 07:00 15:00 23:00 07:00 15:00 23:00 Intake Total 100 ml 840 ml 580 ml Output Total 500 ml Balance -400 ml 840 ml 580 ml Intake Oral 840 ml 480 ml IV Total 100 ml 100 ml Output Urine Total 500 ml # Voids 3 2 # Bowel Movements 1 Result Diagram: 11/28/17 0556 11/27/17 0624 Imaging Last Impressions Chest X-Ray 11/26/17 0000 Signed Impressions: Service Date/Time: Sunday, November 26, 2017 12:31 - CONCLUSION: 1. No pneumothorax identified post bronchoscopy. Chencho Stevenson MD Chest CT 11/21/17 0000 Signed Impressions: Service Date/Time: November 18:56 - CONCLUSION: 1. Progression of right hilar mass since July 2016 with encasement of the central bronchi as above and complete obstruction of the right upper lobe bronchus. There is also compression of the superior vena cava and azygos vein and moderate right effusion and partial atelectasis of the right lung as above. Small pericardial effusion. Chencho Stevenson MD Objective Remarks GENERAL: NAD SKIN: Warm and dry. HEAD: Normocephalic. EYES: No scleral icterus. No injection or drainage. NECK: Supple, trachea midline. No JVD or lymphadenopathy. CARDIOVASCULAR: Regular rate and rhythm without murmurs, gallops, or rubs. RESPIRATORY: Breath sounds decrease R>L. No accessory muscle use. GASTROINTESTINAL: Abdomen soft, non-tender, nondistended. MUSCULOSKELETAL: No cyanosis, or edema. BACK: Nontender without obvious deformity. No CVA tenderness. A/P Problem List: (1) Bacteremia due to Gram-positive bacteria ICD Code: R78.81 - Bacteremia (2) Postobstructive pneumonia ICD Code: J18.9 - Pneumonia, unspecified organism (3) Pulmonary mass ICD Code: R91.8 - Other nonspecific abnormal finding of lung field Status: Acute (4) Pleural effusion, right ICD Code: J90 - Pleural effusion, not elsewhere classified Status: Acute (5) Severe sepsis ICD Code: A41.9 - Sepsis, unspecified organism; R65.20 - Severe sepsis without septic shock Status: Acute (6) Small cell lung carcinoma ICD Code: C34.90 - Malignant neoplasm of unspecified part of unspecified bronchus or lung Assessment and Plan 62-year-old man with Severe sepsis-Resolved Pneumonia postobstructive. Currently on IV Zosyn and monitor culture [id number] cocci Currently on Zosyn appreciate input from infectious disease specialist Repeat blood culture NTD Right bronchus occlusion Right lung mass likely underlying malignancy Patient with a known history of right lung mass, seen by pulmonary medicine back in 2016 however biopsy was not considered at a time per pulmonary medicine Pulmonary medicine consultation appreciate s/p Bronchoscopy with biopsy positive for small cell lung caner Small cell lung carcinoma Consult Oncology Lactic acid acidosis Resolved COPD exacerbation with respiratory failure s/p IV Solu-Medrol 20mg Q12H and continue PO Prednisone, continue DuoNeb, IV antibiotics, LABA Diabetes type 2 Continue metformin Currently on ISS Hypertension Schizoaffective disorder Hyperlipidemia Dementia Continue treatment for other chronic medical conditions DVT prophylaxis with Lovenox. Jose Callejas MD Nov 28, 2017 11:49
--- NOTE | 2017-11-28 12:48 | HHI.IDPN ---
Subjective Subjective Remarks Patient is a 62-year-old male, resides in a long term, brought into the hospital for evaluation of altered mental status. He apparently has been noted to be more confused. Evaluation revealed increase in size in his right lung mass, and CT showed progression of his tumor. Patient was first found to have a lung mass in 2015. He had a bronchoscopy and cytology did not show any malignancy. Could not really get any information to from the patient as to what kind of follow-up was done at that time. On review of his systems, patient stated that he is short of breath, but could not tell me how long. She has a cough and sometimes brings up yellowish phlegm. He also complained of some pleuritic chest pain and points to the sternal area. Apparently was some episodes of vomiting twice in the last week. He denies any diarrhea or any urinary complaints. There is no mention of any syncopal episode. Since admission he has not been febrile. His WBC is 12,000. 2 blood cultures on admission is now reported as growing gram-positive cocci in pairs and clusters. CT scan of the chest shows progression of the right hilar mass compared to July 2016 with encasement of the central bronchus, and complete obstruction of the right upper lobe bronchus. There is also compression of the superior vena cava and azygous vein. There is moderate right pleural effusion and partial atelectasis of the right lung. Infectious disease consultation has been requested to evaluate the patient with postobstructive pneumonia and bacteremia. Notes reviewed No fever Not SOB No new complaint Bronch findings noted Path report small cell CA Seen by oncology D/W Dr Mccarthy (Pulmonary) Antibiotics Current Medications Zosyn Medications (Trade) Dose Ordered Sig/Kelsy Route Start Time Stop Time Status Last Admin Piperacillin Sod/ Tazobactam Sod 100 ml @ 200 mls/hr Q6H IV 11/22/17 02:00 11/27/17 08:56 (NS Flush) 2 ml UNSCH PRN IV FLUSH 11/22/17 00:15 11/22/17 01:54 (NS Flush) 2 ml BID IV FLUSH 11/22/17 09:00 11/27/17 08:54 (Narcan Inj) 0.4 mg UNSCH PRN IV PUSH 11/22/17 00:15 (Duoneb Neb) 1 ampule Q2HR NEB PRN NEB 11/22/17 00:15 11/26/17 11:18 (Lovenox Inj) 40 mg Q24H SQ 11/22/17 09:00 11/27/17 08:53 (Tenormin) 50 mg BID PO 11/22/17 09:00 11/27/17 08:53 (Buspar) 10 mg BID PO 11/22/17 09:00 11/27/17 08:53 (Colace) 100 mg BID PO 11/22/17 09:00 11/27/17 08:53 (Lexapro) 10 mg DAILY PO 11/22/17 09:00 11/27/17 08:53 (Prinivil) 5 mg DAILY PO 11/22/17 09:00 11/27/17 08:53 (Procardia Xl) 60 mg DAILY PO 11/22/17 09:00 11/27/17 08:53 (Tears Naturale Opth Soln) 1 drop TID EACH EYE 11/22/17 09:00 11/27/17 08:54 (risperDAL) 6 mg HS PO 11/22/17 21:00 11/26/17 20:28 (Artane) 2 mg TID PO 11/22/17 09:00 11/27/17 08:53 (Pravachol) 40 mg HS PO 11/22/17 21:00 11/26/17 20:29 (Vasotec Inj) 2.5 mg Q6H PRN IV PUSH 11/22/17 03:15 11/23/17 14:05 (Protonix) 40 mg DAILY PO 11/24/17 09:00 11/27/17 08:53 (Tylenol) 650 mg Q4H PRN PO 11/23/17 12:30 11/23/17 13:24 (Zofran Inj) 4 mg Q6H PRN IV PUSH 11/23/17 12:30 (D50w (Vial) Inj) 50 ml UNSCH PRN IV PUSH 11/24/17 10:45 (Glucagon Inj) 1 mg UNSCH PRN OTHER 11/24/17 10:45 (NovoLOG SUPPLEMENTAL SCALE) 1 ACHS SLIDING SCALE SQ 11/24/17 12:00 11/27/17 08:52 (Glucophage) 250 mg BIDPC PO 11/24/17 10:45 11/27/17 08:53 (Pill Splitter) 1 ea UNSCH PRN OTHER 11/24/17 10:45 Dextrose/Sodium Chloride 1,000 ml @ 0 mls/hr Q0M IV 11/25/17 12:57 (Albuterol Concentrated Neb) 2.5 mg [employer]PERATING NEB 11/25/17 13:00 11/29/17 12:59 Lactated Ringer's 1,000 ml @ 30 mls/hr Q24H PRN IV 11/25/17 16:30 11/28/17 16:29 Sodium Chloride 500 ml @ 30 mls/hr [id number] PRN IV 11/25/17 16:30 11/28/17 16:29 (Lopressor) 25 mg [employer] PRN PO 11/25/17 16:30 11/28/17 16:29 (Betadine 5% Antisepsis Kit) 1 applic [employer] PRN EACH NARE 11/25/17 16:30 11/28/17 16:29 (Chlorhexidine 2% Cloth) 3 pack [employer] PRN TOPICAL 11/25/17 16:30 11/28/17 16:29 (Deltasone) 20 mg DAILY PO 11/28/17 09:00 Lines PIV Past Medical History Hypertension Diabetes COPD Schizoaffective disorder Hyperlipidemia Dementia R hilar mass since 2016 Past Surgical History Appendectomy Hernia repair Allergies: Coded Allergies: aspirin (Unverified Allergy, Severe, 05/21/17) chlorpromazine (Unverified Allergy, Unknown, 05/21/17) haloperidol (Unverified Allergy, Unknown, 05/21/17) Per sister in law - Anita Taylor [phone]. Per patient, she manages his medications and administration for him. Objective . Vital Signs Date Time Temp Pulse Resp B/P (MAP) Pulse Ox O2 Delivery O2 Flow Rate FiO2 11/28/17 08:06 98.2 100 20 153/99 (117) 96 11/28/17 08:00 Room Air 11/28/17 04:00 98.6 95 17 130/51 (77) 95 11/28/17 00:00 98.5 87 18 136/80 (98) 94 11/27/17 20:00 98.2 92 18 130/94 (106) 94 11/27/17 19:15 94 Room Air 21 11/27/17 16:16 98.5 83 17 111/69 (83) 95 . Laboratory Tests Test 11/27/17 06:24 11/28/17 05:56 White Blood Count 14.6 TH/MM3 13.9 TH/MM3 Red Blood Count 3.56 MIL/MM3 3.55 MIL/MM3 Hemoglobin 9.8 GM/DL 9.8 GM/DL Hematocrit 30.2 % 29.9 % Mean Corpuscular Volume 84.8 FL 84.4 FL Mean Corpuscular Hemoglobin 27.5 PG 27.6 PG Mean Corpuscular Hemoglobin Concent 32.5 % 32.7 % Red Cell Distribution Width 16.7 % 17.1 % Platelet Count 721 TH/MM3 626 TH/MM3 Mean Platelet Volume 6.7 FL 6.5 FL Neutrophils (%) (Auto) 80.0 % 76.0 % Lymphocytes (%) (Auto) 12.1 % 12.5 % Monocytes (%) (Auto) 7.5 % 10.6 % Eosinophils (%) (Auto) 0.3 % 0.7 % Basophils (%) (Auto) 0.1 % 0.2 % Neutrophils # (Auto) 11.6 TH/MM3 10.5 TH/MM3 Lymphocytes # (Auto) 1.8 TH/MM3 1.7 TH/MM3 Monocytes # (Auto) 1.1 TH/MM3 1.5 TH/MM3 Eosinophils # (Auto) 0.0 TH/MM3 0.1 TH/MM3 Basophils # (Auto) 0.0 TH/MM3 0.0 TH/MM3 CBC Comment DIFF FINAL DIFF FINAL Differential Comment Laboratory Tests Test 11/26/17 13:48 11/27/17 06:24 B-Type Natriuretic Peptide 62 PG/ML Blood Urea Nitrogen 18 MG/DL Creatinine 0.76 MG/DL Random Glucose 144 MG/DL Calcium Level 8.5 MG/DL Sodium Level 136 MEQ/L Potassium Level 3.9 MEQ/L Chloride Level 100 MEQ/L Carbon Dioxide Level 26.8 MEQ/L Anion Gap 9 MEQ/L Estimat Glomerular Filtration Rate 127 ML/MIN Microbiology Date/Time Source Procedure Growth Status 11/26/17 11:50 Bronchial Washings Right Upper Lobe Fungal Smear - Final NO FUNGAL ELEMENTS SEEN. Resulted 11/26/17 11:50 Bronchial Washings Right Upper Lobe Fungal Culture Pending Resulted 11/26/17 11:50 Bronchial Washings Right Upper Lobe Acid Fast Stain - Final NO ACID FAST BACILLI SEEN Resulted 11/26/17 11:50 Bronchial Washings Right Upper Lobe Mycobacterial Culture Pending Resulted 11/26/17 11:50 Bronchial Washings Right Upper Lobe Gram Stain - Final Complete 11/26/17 11:50 Bronchial Washings Right Upper Lobe Bronchial Culture - Final MODERATE GROWTH NORMAL RESPIRATORY DARLIN Complete Imaging Last Impressions Chest X-Ray 11/21/17 1538 Signed Impressions: Service Date/Time: November 15:52 - CONCLUSION: 1. Large right pleural effusion with associated diffuse airspace disease throughout the right lung. 2. 4.6 cm masslike opacity in the right upper lung zone in region of smaller mass noted on prior exam. This likely reflects interval enlargement of this mass. Consider CT examination for further evaluation as indicated. Walter Covarrubias MD Chest CT 11/21/17 0000 Signed Impressions: Service Date/Time: November 18:56 - CONCLUSION: 1. Progression of right hilar mass since July 2016 with encasement of the central bronchi as above and complete obstruction of the right upper lobe bronchus. There is also compression of the superior vena cava and azygos vein and moderate right effusion and partial atelectasis of the right lung as above. Small pericardial effusion. Chencho Stevenson MD Physical Exam GENERAL: awake and alert, NAD SKIN: Cool, and moist. No generalized rash HEAD: Atraumatic. Normocephalic. No temporal wasting, or tenderness. EYES: [place] conjunctiva. No petechia or hemorrhage. No scleral icterus. No injection or drainage. EARS, NOSE AND THROAT: Nose without bleeding or purulent nasal discharge. No sinus tenderness. Mucous membranes pink and moist. No oral lesions noted. NECK: Trachea midline. Supple and not tender, no meningeal signs CARDIOVASCULAR: Regular rate and rhythm. No murmurs, rubs or gallops heard RESPIRATORY: Clear to auscultation on L, decreased BS whole R lung. ABDOMEN: Soft, non-tender, nondistended. Bowel sounds present and normoactive. No guarding. No rebound. No organomegaly. EXTREMITIES: No clubbing, cyanosis, or edema. No calf tenderness. Well perfused and warm. NEUROLOGICAL: Non focal PSYCHIATRIC: Flat affect, calm and cooperative. LINE: No evidence of infection Assessment & Plan Remarks IMPRESSION Post obstructive pneumonia due to enlarging R hilar mass encasing bronchus as well as SVC and azygous vein Small Cell CA Bacteremia, 2 diff Coag Neg Staph likely cotaminant Hx schizoaffective disorder RECOMMENDATION Continue Zosyn for now Oncology evaluating patient Monitor progress Will determine when to switch to oral Abx when more definitive plans made for his CA Crystal Burrell MD Nov 28, 2017 12:48
--- NOTE | 2017-11-28 13:05 | HHI.PR ---
Subjective Remarks Post Bronchoscopy . Off O2 . Biopsy is +ve for Small Cell lung CA He is not SOB Objective Vital Signs Date Time Temp Pulse Resp B/P (MAP) Pulse Ox O2 Delivery O2 Flow Rate FiO2 11/28/17 08:06 98.2 100 20 153/99 (117) 96 11/28/17 08:00 Room Air 11/28/17 04:00 98.6 95 17 130/51 (77) 95 11/28/17 00:00 98.5 87 18 136/80 (98) 94 11/27/17 20:00 98.2 92 18 130/94 (106) 94 11/27/17 19:15 94 Room Air 21 11/27/17 16:16 98.5 83 17 111/69 (83) 95 I/O 11/27/17 11/27/17 11/27/17 11/28/17 11/28/17 11/28/17 07:00 15:00 23:00 07:00 15:00 23:00 Intake Total 100 ml 840 ml 580 ml Output Total 500 ml Balance -400 ml 840 ml 580 ml Intake Oral 840 ml 480 ml IV Total 100 ml 100 ml Output Urine Total 500 ml # Voids 3 2 # Bowel Movements 1 Result Diagram: 11/28/17 0556 11/27/17 0624 Objective Remarks GENERAL: This is an averagely built middle-aged white male who is in no acute distress. Mild pallor, no cyanosis, no clubbing. There is no peripheral edema. No lymphadenopathy. HEENT: Head normocephalic. Pupils reactive and equal. Tongue is moist. Nasal mucosa clear. Throat was clear. NECK: Supple. No bruits or thyroid enlargement or lymphadenopathy. CHEST: Decreased excursions with wheezes over the right lung field and diminished breath sounds over the right base. HEART: The heart sounds ARE irregular S1 and S2. No murmur. ABDOMEN: Soft, protuberant without masses. No organomegaly or tenderness. EXTREMITIES: No lesions. No edema. NEUROLOGIC: Reflexes are 1+ with no gross motor deficits. Cranial nerves not tested. SKIN: No lesions are observed. Assessment and Plan Assessment and Plan IMPRESSION 1. Right hilar mass with post obstructive pneumonitis. 2. Chronic obstructive pulmonary disease 3. History of hypertension 4. Small Cell Lung CA 5. Diabetes mellitus type 2 Plan : 1. Cont antibiotics for 10 days 2. Up with help 3. D/C O2. 4. Oncology Evaluation 5. Continue anticoagulants 6. PFT with Bronchodilator Eh Kapoor MD Nov 28, 2017 13:05
[2017-11-28] MEDS ORDERED: IOHEXOL 350 MG/ML 10 ML VIAL (for RAD DIAG) IVCONTRAST ONE (15:44)
--- NOTE | 2017-11-28 16:07 | RADRPT ---
EXAM DATE/TIME: 11/28/2017 15:43 [facility] COMPARISON: No previous studies available for comparison. INDICATIONS : History of small cell lung cancer, staging studies. IV CONTRAST: 93 cc Omnipaque 350 (iohexol) IV ; Cumulative dose for multiple exams. ORAL CONTRAST: Prescribed oral contrast ingested. RADIATION DOSE: 7.11 CTDIvol (mGy) ; Combined studies MEDICAL HISTORY : Hypertension. Chronic obstructive pulmonary disease. Diabetes mellitus type 1.prostate cancer SURGICAL HISTORY : Appendectomy. ENCOUNTER: Initial ACUITY: 1 day PAIN SCALE: 5/10 LOCATION: abdomen TECHNIQUE: Volumetric scanning of the abdomen and pelvis was performed. Using automated exposure control and ad justment of the mA and/or kV according to patient size, radiation dose was kept as low as reasonably achievable to obtain optimal diagnostic quality images. DICOM format image data is available electro nically for review and comparison. FINDINGS: LOWER LUNGS: Large right pleural effusion measuring 6.7 cm. LIVER: Homogeneous density without lesion. There is no dilation of the biliary tree. No calcified [place] es. SPLEEN: Normal size without lesion. PANCREAS: Within normal limits. KIDNEYS: Normal in size and shape. There is no mass, stone or hydronephrosis. ADRENAL GLANDS: Within normal limits. VASCULAR: There is no aortic aneurysm. BOWEL/MESENTERY: No dilated loops of small or large bowel. Oral contrast has passed through the colon down to the sig moid. The rectum is mildly distended. No evidence of free fluid. ABDOMINAL WALL: Within normal limits. RETROPERITONEUM: There is no lymphadenopathy. BLADDER: No wall thickening or mass. REPRODUCTIVE: Within normal limits. INGUINAL: There is no lymphadenopathy or hernia. MUSCULOSKELETAL: No lytic or sclerotic lesion is seen. CONCLUSION: 1. Large right pleural effusion. 2. No dilated loops of small or large bowel; large size to the rectum. Erick Nieves MD on November 28, 2017 at 16:03 Board Certified Radiologist. This report was verified electronically.
--- NOTE | 2017-11-28 16:34 | RADRPT ---
EXAM DATE/TIME: 11/28/2017 15:31 [facility] COMPARISON: No previous studies available for comparison. INDICATIONS : History of small cell cancer, evaluate for brain tumor. IV CONTRAST: 93 cc Omnipaque 350 (iohexol) IV ; Cumulative dose for multiple exams. RADIATION DOSE: 63.34 CTDIvol (mGy) ; Combined Studies MEDICAL HISTORY : Hypertension. Chronic obstructive pulmonary disease. Diabetes mellitus type 1.prostae cancer SURGICAL HISTORY : Appendectomy. ENCOUNTER: Initial ACUITY: 1 day PAIN SCALE: 5/10 LOCATION: cranial TECHNIQUE: Multiple contiguous axial images were obtained of the head. Using automated exposure control and adj ustment of the mA and/or kV according to patient size, radiation dose was kept as low as reasonably a chievable to obtain optimal diagnostic quality images. DICOM format image data is available electro nically for review and comparison. FINDINGS: Multiple rim-enhancing masses are seen scattered throughout both cerebral hemispheres. The largest me asures 1.7 cm at the level of the vertex within the left parietal lobe. These lesions average 1.5 cm in size. Lesions are also seen within the right cerebellar hemisphere. No hemorrhage. No significant mass effect. Ventricles are normal in size. Paranasal sinuses and mastoid air cells are clear. CONCLUSION: Multiple metastatic lesions scattered throughout both cerebral hemispheres without hemorrhage or mass effect. Erick Javier Jr., MD on November 28, 2017 at 16:07 Board Certified Radiologist. This report was verified electronically.
[2017-11-28] MEDS: PRAVASTATIN SOD 40 MG TAB PO SCH (20:44)
[2017-11-28] MEDS: risperiDONE 3 MG TAB PO SCH (20:44)
--- NOTE | 2017-11-28 22:36 | RADRPT ---
EXAM DATE/TIME: 11/28/2017 21:39 [facility] COMPARISON: No previous studies available for comparison. INDICATIONS : Metastatic disease. CONTRAST: 15 cc Omniscan (gadodiamide) IV MEDICAL HISTORY : Carcinoma, lung. Hypertension. Chronic obstructive pulmonary disease. SURGICAL HISTORY : Appendectomy. Inguinal hernia repair. ENCOUNTER: Initial ACUITY: 1 day PAIN SCORE: 0/10 LOCATION: Head. TECHNIQUE: Multiplanar, multisequence MRI of the brain was performed both prior to and following the administrat ion of paramagnetic contrast. FINDINGS: Examination is abnormal. There are numerous enhancing masses in the cerebrum, brainstem and right cer ebellum. The largest cerebellar mass measures 1.9 cm. The largest brainstem mass measures 6 mm in the medulla. The largest basal ganglia mass measures 1.3 cm and the left thalamus. The largest lesser ra ne mass measures 1.9 cm and the left occipital lobe. Largest right cerebral mass measures 1.8 cm in t he right lateral high convexities. There is no abnormal dural enhancement. Ventricles are midline and normal in size given degree of cerebral atrophy. There is mild diffuse cerebral atrophy. No extra-ax ial fluid collection the or hemorrhage. No gyriform diffusion abnormality to suggest acute infarct or ischemia. Orbits and extra cranial structures are grossly unremarkable. CONCLUSION: 1. 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 Please see above discussion. Walter Covarrubias MD on November 28, 2017 at 22:30 Board Certified Radiologist. This report was verified electronically.
[2017-11-28] MEDS ORDERED: GADODIAMIDE PF 287 MG/ML 5 ML VIAL (for RAD MRI) IVCONTRAST ONE (23:30)
[2017-11-29] VITALS (7 sets, daily range): BP systolic 107–137; BP diastolic 60–83; PULSE 85–98; RESP 16–24; TEMP 97.9–99.6; O2SAT 94–97
[2017-11-29] MEDS: PIPERACIL-TAZO 4.5 GM PREMIX 100 ML IV SCH ×2 (02:30→08:58)
[2017-11-29] MEDS: INSULIN ASPART SUPPLEMENTAL SCALE SQ SCH ×4 (08:00→22:17)
[2017-11-29] MEDS: PANTOPRAZOLE SOD 40 MG DELAYED RELEASE TAB PO SCH (08:57)
[2017-11-29] MEDS: ATENOLOL 50 MG TAB PO SCH ×2 (08:57→22:10)
[2017-11-29] MEDS: busPIRone HCL 10 MG TAB PO SCH ×2 (08:57→22:09)
[2017-11-29] MEDS: TRIHEXYPHENIDYL HCL 2 MG TAB PO SCH ×3 (08:57→17:43)
[2017-11-29] MEDS: LISINOPRIL 5 MG TAB PO SCH (08:57)
[2017-11-29] MEDS: DOCUSATE SODIUM 100 MG CAP PO SCH ×2 (08:57→22:09)
[2017-11-29] MEDS: predniSONE 20 MG TAB PO SCH (08:57)
[2017-11-29] MEDS: NIFEdipine 60 MG SUSTAINED RELEASE TAB PO SCH (08:57)
[2017-11-29] MEDS: ESCITALOPRAM OXALATE 10 MG TAB PO SCH (08:57)
[2017-11-29] MEDS: SODIUM CHLORIDE 0.9% FLUSH 10 ML FLUSH IV FLUSH SCH ×2 (08:58→22:09)
[2017-11-29] MEDS: metFORMIN HCL 500 MG TAB PO SCH ×2 (08:58→17:43)
[2017-11-29] MEDS: ENOXAPARIN SODIUM 40 MG/0.4 ML SYRINGE SQ SCH (08:58)
[2017-11-29] MEDS: ARTIFICIAL TEARS OPTH SOLN 15 ML BTL EACH EYE SCH ×3 (08:59→17:44)
--- NOTE | 2017-11-29 11:32 | PD.CONS ---
Consult Service Palliative Care . Consult Requested By Dr. Diomedes Tobin . Primary Care Physician ID . Reason for Consultation a. To assist with evaluation and management of symptoms including: dyspnea ; confusion; weakness b. To assist medical decision maker(s) with: better understanding of current medical conditions; weighing benefits/burdens of medical treatment options; making medical treatment decisions. . HPI History of Present Illness Mr. Taylor is a 62-year-old [facility] and [facility] resident with underlying schizophrenia; diabetes; hypertension; tobacco abuse; copd; and hyperlipidemia who was sent from his assisted living facility to the [facility] Emergency Department on 11/21/2017 because he had "not been acting himself for the last 2- 3 days." The patient had become more confused and appeared less energetic. His ywlvmg-xz-pfr said "his lungs sounded awful" for the prior 3 weeks. The patient, himself, is a very poor historian who could provide little history. At times, he had told providers that he was short of breath but could not say for how long. He reported a cough which sometimes a produce yellow phlegm. At times he complained of pleuritic type chest pain in the sternal area. He mentioned the possibility of vomiting twice in the previous week. He denied syncopal episodes, diarrhea, or urinary complaints. The patient was hospitalized here at [facility] from 07/15/16 through 08/06/16. A right-sided hilar mass was noted during that admission. Fiberoptic bronchoscopy was performed on 07/30/16. No obstructive pathology or mass was seen at that time. Cytology from washings revealed no malignant cells. The patient was diagnosed with a pulmonary embolus during that admission. No further attempt to biopsy the lung mass was performed at that time probably due to the patient requiring anticoagulants. Initial vital signs in the emergency department on this admission revealed the following --> temperature 99.3; pulse 95; respiratory rate 17; blood pressure 147/87; pulse oximetry 98% on room air Initial exam by the emergency department store door greeter noted the following -having > patient appeared well-nourished and in no acute distress. Patient was tachycardic. There is no accessory muscle use but there were coarse breath with diminished air movement at the bases. Sounds throughout crackles were heard with inspiratory wheeze. The remainder of the exam was unremarkable. Initial diagnostic testing revealed the following: * CBC showed WBC 12.5; hemoglobin 9.5; platelet count 1163 * coagulation profile showed PT 11.7; INR 1.2; PTT 26.8 * Chemistry profile was remarkable for a creatinine of 1.3; random glucose 293; albumin 2.2 * Cardiac serology showed total CK 162; CK-MB 2.8; troponin less than 0.02 * Urinalysis was unremarkable * Chest x-ray showed a large right pleural effusion with associated diffuse airspace disease throughout the right lung. A 4.6 cm masslike opacity was noted in the right upper lung zone. * CT of the chest showed enlarging right hilar mass since July 2016 with encasement of the central bronchi and complete obstruction of the right upper lobe bronchus. Also noted with compression of the superior vena cava and azygos veins. * EKG showed sinus rhythm and possible left atrial enlargement. No significant change since 07/14/16 The patient was admitted to the hospitalist service. Blood cultures on admission grew out coagulase-negative staph. Infectious disease and pulmonology were consulted. The patient underwent bronchoscopy to evaluate the lung mass on 11/26/17. An irregular mass occluding the right upper lobe bronchus by over 70% was noted and biopsied. Pathology came back showing small cell lung cancer. Medical oncology was consulted. MRI of the brain revealed widely metastatic disease to the cerebrum, brainstem, and right cerebellum. Medical oncology felt that given the extent of the patient's disease, his poor performance status, the underlying schizophrenia, he would not be a good candidate for aggressive cancer directed treatments. There was also felt that those treatments would be at best palliative. The patient is currently on oral steroids; nebulizer treatments; IV antibiotics.\\ At time of my visit, patient is in no acute distress. The patient mumbles responses to most of my questions and I can only understand a small percentage of what he is saying. When I ask about pain he points to the mid sternum. He seems to indicate he is having shortness of breath. He was able to tell me that his [facility] was "no good" because the food is poor there. . Function/Cognitive Trajectory Family reports that the patient is capable of doing all his activities of daily living at the assisted living center. He does need direction and prompting because of the underlying mental illness. He normally does not require any type of assistive device for ambulation. The patient's mumbled speech is apparently a long-term issue. The patient's viiwrt-ma-eag indicates that he is capable of clearer speech when he wants. . Review of Systems ROS Limitations: Clinical Condition (Patient is a very poor historian. Review of systems is taken from the medical record and from family members as best as possible.) Constitutional: COMPLAINS OF: Fatigue, Fever, Generalized weakness, DENIES: Weight gain, Weight loss, Change in appetite, Pain Endocrine: DENIES: Polydipsia, Polyuria, Polyphagia Eyes: DENIES: Eye pain Ears, nose, mouth, throat: DENIES: Tinnitus, Nasal discharge, Throat pain Respiratory: COMPLAINS OF: Cough, Wheezing, Sputum production, Shortness of breath, DENIES: Hemoptysis Cardiovascular: COMPLAINS OF: Dyspnea on Exertion, DENIES: Chest pain, Palpitations, Syncope, Lower Extremity Edema Gastrointestinal: COMPLAINS OF: Nausea, Vomiting, DENIES: Black stools, Bloody stools, Constipation, Diarrhea Genitourinary: DENIES: Urinary incontinence, Hematuria, Dysuria Musculoskeletal: COMPLAINS OF: Joint pain, DENIES: Muscle aches, Back pain, Neck pain Integumentary: DENIES: Pruritus, Tumors Hematologic/Lymphatics: DENIES: Bruising Immunologic/Allergic: DENIES: Eczema Neurologic: DENIES: Abnormal gait, Headache, Seizures, Tremor Psychiatric: COMPLAINS OF: Confusion, Depression, Hallucinations Past Family Social History Coded Allergies: aspirin (Unverified Allergy, Severe, 05/21/17) chlorpromazine (Unverified Allergy, Unknown, 05/21/17) haloperidol (Unverified Allergy, Unknown, 05/21/17) Per sister in law Kenneth Taylor [phone]. Per patient, she manages his medications and administration for him. Past Medical History Hypertension Diabetes COPD Schizoaffective disorder vs paranoid schizophrenia Hyperlipidemia Dementia Hx of PE 2017 . Past Surgical History Appendectomy Hernia repair Thyroid ablation . Reported Medications Prehospitalization medications at the assisted living facility included the following: Artificial Tears Opth Drops (Polyvinyl Alcohol) 1.4% Soln 1 Drop EACH EYE TID Polyethylene Glycol 3350 Powder (Polyethylene Glycol) 17 Gm Pow 17 Gm PO DAILY Dok (Docusate Sodium) 100 Mg Cap 100 Mg PO BID Norvasc (Amlodipine Besylate) 10 Mg Tab 10 Mg PO DAILY Pantoprazole (Pantoprazole Sodium) 40 Mg Tab 40 Mg PO DAILY Lisinopril 5 Mg Tab 5 Mg PO DAILY Risperdal (Risperidone) 3 Mg Tab 3 Mg PO HS Simvastatin 10 Mg Tab 10 Mg PO DAILY Trihexyphenidyl (Trihexyphenidyl HCl) 2 Mg Tab 2 Mg PO TID Metformin (Metformin HCl) 500 Mg Tab 500 Mg PO DAILY Tenormin (Atenolol) 50 Mg Tab 50 Mg PO BID Procardia XL (Nifedipine) 60 Mg Tab 60 Mg PO DAILY Lisinopril 5 Mg Tab 5 Mg PO DAILY Lexapro (Escitalopram Oxalate) 10 Mg Tab 10 Mg PO DAILY Fluphenazine Decanoate Inj (Fluphenazine Decanoate) 125 Mg/5 Ml Inj 25 Mg IM Q21D Buspirone (Buspirone HCl) 10 Mg Tab 10 Mg PO BID . Current Medications Medications (Trade) Dose Ordered Sig/Kelsy Route Start Time Stop Time Status Last Admin Piperacillin Sod/ Tazobactam Sod 100 ml @ 200 mls/hr Q6H IV 11/22/17 02:00 11/29/17 08:58 (NS Flush) 2 ml UNSCH PRN IV FLUSH 11/22/17 00:15 11/22/17 01:54 (NS Flush) 2 ml BID IV FLUSH 11/22/17 09:00 11/29/17 08:58 (Narcan Inj) 0.4 mg UNSCH PRN IV PUSH 11/22/17 00:15 (Duoneb Neb) 1 ampule Q2HR NEB PRN NEB 11/22/17 00:15 11/26/17 11:18 (Lovenox Inj) 40 mg Q24H SQ 11/22/17 09:00 11/29/17 08:58 (Tenormin) 50 mg BID PO 11/22/17 09:00 11/29/17 08:57 (Buspar) 10 mg BID PO 11/22/17 09:00 11/29/17 08:57 (Colace) 100 mg BID PO 11/22/17 09:00 11/29/17 08:57 (Lexapro) 10 mg DAILY PO 11/22/17 09:00 11/29/17 08:57 (Prinivil) 5 mg DAILY PO 11/22/17 09:00 11/29/17 08:57 (Procardia Xl) 60 mg DAILY PO 11/22/17 09:00 11/29/17 08:57 (Tears Naturale Opth Soln) 1 drop TID EACH EYE 11/22/17 09:00 11/29/17 08:59 (risperDAL) 6 mg HS PO 11/22/17 21:00 11/28/17 20:44 (Artane) 2 mg TID PO 11/22/17 09:00 11/29/17 08:57 (Pravachol) 40 mg HS PO 11/22/17 21:00 11/28/17 20:44 (Vasotec Inj) 2.5 mg Q6H PRN IV PUSH 11/22/17 03:15 11/23/17 14:05 (Protonix) 40 mg DAILY PO 11/24/17 09:00 11/29/17 08:57 (Tylenol) 650 mg Q4H PRN PO 11/23/17 12:30 11/28/17 08:43 (Zofran Inj) 4 mg Q6H PRN IV PUSH 11/23/17 12:30 (D50w (Vial) Inj) 50 ml UNSCH PRN IV PUSH 11/24/17 10:45 (Glucagon Inj) 1 mg UNSCH PRN OTHER 11/24/17 10:45 (NovoLOG SUPPLEMENTAL SCALE) 1 ACHS SLIDING SCALE SQ 11/24/17 12:00 11/28/17 20:44 (Glucophage) 250 mg BIDPC PO 11/24/17 10:45 11/29/17 08:58 (Pill Splitter) 1 ea UNSCH PRN OTHER 11/24/17 10:45 Dextrose/Sodium Chloride 1,000 ml @ 0 mls/hr Q0M IV 11/25/17 12:57 (Albuterol Concentrated Neb) 2.5 mg MANAGER BUILDING NEB 11/25/17 13:00 11/29/17 12:59 (Deltasone) 20 mg DAILY PO 11/28/17 09:00 11/29/17 08:57 . Family History No known family history of cancer. The patient's mother of "old age" at age 99 The patient's father at age 72 of a myocardial infarction 1 of the patient's brothers of HIV/AIDS. . Substance Use Tobacco: Patient has been at least a one pack per day smoker during his adult life. No significant tobacco use since he was placed at his [facility] about 14 months ago. Alcohol: No recent use. No known history of abuse Prescription med abuse: No known prescription medication abuse. Illicits: No known use of illicits . Psychosocial History Patient is originally from [place]. He came with his parents to this country when he was age 13. Swedish has been his primary language. High school education. The patient is a [facility] . He received a medical discharge from the [facility] due to his mental health issues. The patient was never . He has no children. The patient had 5 brothers. One is . 2 of his brothers live in [place]. 2 brothers live here. The patient had been living with a brother and his fxvynr-xu-eru for about 20- 30 years. The ogxzai-vc-etl--Anita Taylor--is reportedly the legal guardian. She could no longer care adequately for the patient at her home and he was placed at [facility] approximately 14 months ago. Spiritual/Cultural Factors The patient comes from a [employer] tradition. Adventist and spirituality have not been an important part of his life. . Living Will: Never completed Health Care Surrogate: Never completed Durable Power of Upper Tier: Never completed Date completed: The patient, himself has never completed an advanced directive. There is a [facility] DNR form on the chart signed by the guardian and dated 07/05/16. . . Health Care Surrogate(s): There is no designated healthcare surrogate. Ms. Anita Taylor, the patient's zfvojy-vu-jin, tells me she is a court appointed guardian. We do not have paperwork confirming this at this time. . Documented care wishes: There is no written documentation of patient's healthcare goals or preferences. . Today's verbally stated goals: Patient is unable to verbally state his own goals as he seems to have very little insight into his own disease. . Family/friends goals: I spoke with the patient's self reported court appointed guardian--Anita Taylor --by telephone today. After discussion of the patient's current clinical condition and limited options, she is opting to transition to "comfort measures only" and is agreeable to a hospice consult. . Ethical and Legal Issues Patient is incapacitated to make his own healthcare decisions. Given his underlying mental health issues. There is no reasonable probability that he will recover capacity. . Physical Exam Vital Signs Date Time Temp Pulse Resp B/P (MAP) Pulse Ox O2 Delivery O2 Flow Rate FiO2 11/29/17 08:00 98.5 86 22 137/73 (94) 95 11/29/17 04:00 98.1 85 20 123/80 (94) 94 11/29/17 00:00 98.4 85 16 117/77 (90) 97 11/28/17 20:00 98.9 92 19 117/95 (102) 96 11/28/17 19:15 97 Room Air 21 11/28/17 18:23 98.4 92 20 127/76 (93) 97 11/28/17 17:26 98.5 102 20 112/69 (83) 96 11/28/17 16:06 98.6 90 20 123/76 (92) 95 11/28/17 12:06 98.5 92 20 148/87 (107) 97 . Exam CONSTITUTIONAL/GENERAL: This is an adequately nourished patient, in no apparent distress. his responses are mumbled and very difficult to understand. TUBES/LINES/DRAINS: Peripheral IV SKIN: No jaundice, rashes, or lesions. No wounds seen anteriorly. Skin temperature appropriate. Not diaphoretic. HEAD: Atraumatic. Normocephalic. EYES: Pupils equal and round and reactive. Extraocular motions intact. No scleral icterus. No injection or drainage. Fundi not examined. ENT: Hearing grossly normal. Nose without bleeding or purulent drainage. Throat without visible erythema, exudates, masses, or lesions. NECK: Trachea midline. Supple, nontender. No palpable thyroid enlargement or nodularity. CARDIOVASCULAR: Regular rate and rhythm without murmurs, gallops, or rubs. No JVD. Peripheral pulses symmetric. RESPIRATORY/CHEST: Symmetric, unlabored respirations. Scattered rhonchi bilaterally. No wheezing. Much greater air movement on left than right. GASTROINTESTINAL: Abdomen soft, non-tender, nondistended. No hepato-splenomegaly , or palpable masses. No guarding. Bowel sounds present. GENITOURINARY: Without palpable bladder distension. MUSCULOSKELETAL: Extremities without clubbing, cyanosis, or edema. No joint tenderness or effusion noted. No calf tenderness. No mottling. LYMPHATICS: No palpable cervical or supraclavicular adenopathy. NEUROLOGICAL: Awake and alert. Motor and sensory grossly within normal limits. Follows simple commands. Moves all extremities. PSYCHIATRIC: No obvious anxiety/depression. No apparent hallucinations or other psychotic thought process at time of my visit.. Very challenging to assess patient's thought process given his mumbled language is so hard to understand. . Diagnostic Tests Laboratory Laboratory Tests Test 11/26/17 13:48 11/27/17 06:24 11/28/17 05:56 B-Type Natriuretic Peptide 62 PG/ML (0-100) White Blood Count 14.6 TH/MM3 (4.0-11.0) 13.9 TH/MM3 (4.0-11.0) Red Blood Count 3.56 MIL/MM3 (4.50-5.90) 3.55 MIL/MM3 (4.50-5.90) Hemoglobin 9.8 GM/DL (13.0-17.0) 9.8 GM/DL (13.0-17.0) Hematocrit 30.2 % (39.0-51.0) 29.9 % (39.0-51.0) Mean Corpuscular Volume 84.8 FL (80.0-100.0) 84.4 FL (80.0-100.0) Mean Corpuscular Hemoglobin 27.5 PG (27.0-34.0) 27.6 PG (27.0-34.0) Mean Corpuscular Hemoglobin Concent 32.5 % (32.0-36.0) 32.7 % (32.0-36.0) Red Cell Distribution Width 16.7 % (11.6-17.2) 17.1 % (11.6-17.2) Platelet Count 721 TH/MM3 (150-450) 626 TH/MM3 (150-450) Mean Platelet Volume 6.7 FL (7.0-11.0) 6.5 FL (7.0-11.0) Neutrophils (%) (Auto) 80.0 % (16.0-70.0) 76.0 % (16.0-70.0) Lymphocytes (%) (Auto) 12.1 % (9.0-44.0) 12.5 % (9.0-44.0) Monocytes (%) (Auto) 7.5 % (0.0-8.0) 10.6 % (0.0-8.0) Eosinophils (%) (Auto) 0.3 % (0.0-4.0) 0.7 % (0.0-4.0) Basophils (%) (Auto) 0.1 % (0.0-2.0) 0.2 % (0.0-2.0) Neutrophils # (Auto) 11.6 TH/MM3 (1.8-7.7) 10.5 TH/MM3 (1.8-7.7) Lymphocytes # (Auto) 1.8 TH/MM3 (1.0-4.8) 1.7 TH/MM3 (1.0-4.8) Monocytes # (Auto) 1.1 TH/MM3 (0-0.9) 1.5 TH/MM3 (0-0.9) Eosinophils # (Auto) 0.0 TH/MM3 (0-0.4) 0.1 TH/MM3 (0-0.4) Basophils # (Auto) 0.0 TH/MM3 (0-0.2) 0.0 TH/MM3 (0-0.2) CBC Comment DIFF FINAL DIFF FINAL Differential Comment Blood Urea Nitrogen 18 MG/DL (7-18) Creatinine 0.76 MG/DL (0.60-1.30) Random Glucose 144 MG/DL (74-106) Calcium Level 8.5 MG/DL (8.5-10.1) Sodium Level 136 MEQ/L (136-145) Potassium Level 3.9 MEQ/L (3.5-5.1) Chloride Level 100 MEQ/L (98-107) Carbon Dioxide Level 26.8 MEQ/L (21.0-32.0) Anion Gap 9 MEQ/L (5-15) Estimat Glomerular Filtration Rate 127 ML/MIN (>89) . Result Diagram: 11/28/17 0556 11/27/17 0624 Microbiology Microbiology Date/Time Source Procedure Growth Status 11/26/17 11:50 Bronchial Washings Right Upper Lobe Fungal Smear - Final NO FUNGAL ELEMENTS SEEN. Resulted 11/26/17 11:50 Bronchial Washings Right Upper Lobe Fungal Culture Pending Resulted 11/26/17 11:50 Bronchial Washings Right Upper Lobe Acid Fast Stain - Final NO ACID FAST BACILLI SEEN Resulted 11/26/17 11:50 Bronchial Washings Right Upper Lobe Mycobacterial Culture Pending Resulted 11/26/17 11:50 Bronchial Washings Right Upper Lobe Gram Stain - Final Complete 11/26/17 11:50 Bronchial Washings Right Upper Lobe Bronchial Culture - Final MODERATE GROWTH NORMAL RESPIRATORY DARLIN Complete Imaging Last Impressions Head CT 11/28/17 0000 Signed Impressions: Service Date/Time: November 15:31 - CONCLUSION: Multiple metastatic lesions scattered throughout both cerebral hemispheres without hemorrhage or mass effect. Erick Javier Jr., MD Brain MRI 11/28/17 0000 Signed Impressions: Service Date/Time: November 21:39 - CONCLUSION: 1. Abnormal examination with widely metastatic disease to the cerebrum, brainstem and right cerebellum. Please see above discussion. Walter Covarrubias MD Abdomen/Pelvis CT 11/28/17 0000 Signed Impressions: Service Date/Time: November 15:43 - CONCLUSION: 1. Large right pleural effusion. 2. No dilated loops of small or large bowel; large size to the rectum. Erick Nieves MD Chest X-Ray 11/26/17 0000 Signed Impressions: Service Date/Time: Sunday, November 26, 2017 12:31 - CONCLUSION: 1. No pneumothorax identified post bronchoscopy. Chencho Stevenson MD Chest CT 11/21/17 0000 Signed Impressions: Service Date/Time: November 18:56 - CONCLUSION: 1. Progression of right hilar mass since July 2016 with encasement of the central bronchi as above and complete obstruction of the right upper lobe bronchus. There is also compression of the superior vena cava and azygos vein and moderate right effusion and partial atelectasis of the right lung as above. Small pericardial effusion. Chencho Stevenson MD . Patient/Family Conference Present at Family Conference: Anita Taylor--patient's [id number] and the self-reported court appointed guardian. . Family Conference Time (mins): 25 Family Conference Location: Telephone Issues Discussed: * Palliative care role, purpose, approach * Additional medical, psychosocial, and spiritual history * Patients general health, functional status, and cognitive changes in the months leading up to the current hospitalization * Current medical condition. * Prognosis * Patients goals of medical treatment * Current medical treatment options and benefits/burdens of those options * Likely scenarios comparing ongoing aggressive care with a transition to comfort measures only * Questions answered to the best of my ability . Assessment and Plan Disease Oriented Problem List: (1) Small cell lung carcinoma (2) Pulmonary mass (3) COPD (chronic obstructive pulmonary disease) (4) Brain metastases (5) Pleural effusion on right (6) Postobstructive pneumonia (7) Diabetes mellitus, type 2 (8) Schizophrenia (9) Dyslipidemia (10) Coronary artery disease (11) Benign hypertension Symptom Scale: (1) Pain 0-10 Scale: 0 Comment: Denies pain at time of my visit. . (2) Dyspnea 0-10 Scale: Unable to quantify Comment: Patient has lung cancer and pleural effusion on top of underlying COPD. He most likely also has a postobstructive pneumonia . (3) Generalized weakness 0-10 Scale: Unable to quantify (4) Confusion 0-10 Scale: Unable to quantify Comment: Probably result of brain metastases complicating underlying schizophrenia. . Pertinent Non-Medical Issues Psychosocial: Originally from [place]. Has been battling schizophrenia since his time in the [facility]. Had been living at home with his brother and sister-in- law for decades. Placed in an [facility] approximately 14 months ago. Spiritual: Comes from a [employer] tradition. Adventist and spirituality have not been an important part of his life. Legal: Anita Taylor self-reports that she is the patient's legal appointed guardian. We do not have that paperwork on hand at this time. Ethical issues impacting care: Patient is incapacitated due to his mental illness. There is no reasonable probability that he will regain such capacity. . Important Contacts Anita Taylor ([id number] and self-reported court appointed guardian) appears to be the legal decision maker. [phone] . Prognosis Patient has biopsy-proven small cell lung cancer with multiple brain metastases. Given the patient's extensive disease, his relatively poor functional status, his minimal psychosocial support, and his underlying significant mental health problems, he is not a good candidate for aggressive cancer directed treatments at this time. Such treatments would likely only be palliative. With her without any treatment life expectancy is likely to be significantly less than 6 months. . Code Status: No Code Plan == Code Status: NO CODE (Confirmed with patient's legal guardian on 11/29/17 ; also patient came with signed [place] DNR form from facility) == Decision Making: Patient has schizophrenia. He is incapacitated to make his own health care decisions. He has a court appointed guardian though we do not have the guardianship forms on file. The reported guardian is his sister-in -law -- Anita Taylor == Goals of medical treatment: After speaking with Dr. Tobin, I spoke with the patient's guardian by phone to explain the current clinical situation. We discussed the limited treatment options, what they would involve and how, at best, they might be able to prolong life, but would not cure the illness. I let her know that given the extent of disease, the patient's poor performance status, that Dr. Tobin had felt hospice would be the best option. Ms. Taylor agreed. == Symptoms * Pain: Not a significant issue at this time. * Dyspnea: Patient has a large lung mass , underlying COPD, and probable pneumonia. He is on steroids, antibiotics, nebulizers. No further recommendations at this time. * Confusion: Patient has multiple brain mets on top of underlying schizophrenia. * Generalized Weakness == Hospice consult order placed . Guardian will likely meet with hospice admissions team later today. Once we have optimized hospitalization (e.g. completed IV antibiotics) he can probably be discharged back to his [facility] with hospice as an additional level of support. == Given he now has a confirmed terminal condition, may want to have a PRN opiate order for dyspnea/pain -- e.g. liguid morphine 5-10 mg po/sl q 3 hours prn pain/sob == Palliative care will continue to follow to assist with symptom management and to further clarify goals of medical treatment as the clinical course evolves. . Thank you for the opportunity to participate in the care of Mr. Taylor. . Attestation To help prompt me to consider important information that might be impacting today's encounter and assessment, information from prior notes written by myself or my colleagues may have been "brought forward" into today's note. My signature on this note, however, is an attestation that I personally performed the exam, history, and/or decision-making noted today, and, unless otherwise indicated, the interactions with patient, family, and staff as well as the review of records all occurred today. I also attest that the listed assessment and stated plan reflect my best clinical judgment today based on the combination of historical information, prior notes, and today's exam/ interactions. When time spent is documented, it refers only to time spent today by the signer, or if indicated, combined time spent today by collaborating physician/nurse practitioner. . Jabier Sheets MD Nov 29, 2017 11:32
--- NOTE | 2017-11-29 11:34 | HHI.PR ---
Subjective Remarks Follow-up post obstructive pneumonia/sepsis/bacteremia/right lung mass 11/22/17-patient seen and examined, still with shortness of breath but denies any chest pain. Currently afebrile 11/23/17-patient seen and examined, no acute event overnight. Currently afebrile. Repeat blood culture negative to date. Denies any significant shortness of breath. 11/24/17-patient seen and examined, blood glucose labile. Currently afebrile. Stable shortness of breath however denies chest pain. 11/25/17-patient seen and examined, no acute event overnight. Denies any chest pain or shortness of breath. Currently afebrile. 11/26/17-patient seen and examined, currently nothing by mouth pending bronchoscopy this morning. Some nonproductive cough with SOB 11/27/17-patient seen and examined, s/p lung biopsy . Breathing better. Denies any chest pain 11/28/17-patient seen and examined, Biopsy of the lung is positive for small cell lung carcinoma. Stable and no complaint 11/29/17-patient seen and examined, Brain MRI with metastasis Objective Vitals Vital Signs Date Time Temp Pulse Resp B/P (MAP) Pulse Ox O2 Delivery O2 Flow Rate FiO2 11/29/17 08:00 98.5 86 22 137/73 (94) 95 11/29/17 04:00 98.1 85 20 123/80 (94) 94 11/29/17 00:00 98.4 85 16 117/77 (90) 97 11/28/17 20:00 98.9 92 19 117/95 (102) 96 11/28/17 19:15 97 Room Air 21 11/28/17 18:23 98.4 92 20 127/76 (93) 97 11/28/17 17:26 98.5 102 20 112/69 (83) 96 11/28/17 16:06 98.6 90 20 123/76 (92) 95 11/28/17 12:06 98.5 92 20 148/87 (107) 97 I/O 11/28/17 11/28/17 11/28/17 11/29/17 11/29/17 11/29/17 07:00 15:00 23:00 07:00 15:00 23:00 Intake Total 580 ml 100 ml 680 ml 300 ml Output Total 750 ml Balance 580 ml 100 ml 680 ml -450 ml Intake Oral 480 ml 480 ml 200 ml IV Total 100 ml 100 ml 200 ml 100 ml Output Urine Total 750 ml # Voids 2 4 # Bowel Movements 0 0 Result Diagram: 11/28/17 0556 11/27/17 0624 Imaging Last Impressions Head CT 11/28/17 0000 Signed Impressions: Service Date/Time: November 15:31 - CONCLUSION: Multiple metastatic lesions scattered throughout both cerebral hemispheres without hemorrhage or mass effect. Erick Javier Jr., MD Brain MRI 11/28/17 0000 Signed Impressions: Service Date/Time: November 21:39 - CONCLUSION: 1. Abnormal examination with widely metastatic disease to the cerebrum, brainstem and right cerebellum. Please see above discussion. Walter Covarrubias MD Abdomen/Pelvis CT 11/28/17 0000 Signed Impressions: Service Date/Time: November 15:43 - CONCLUSION: 1. Large right pleural effusion. 2. No dilated loops of small or large bowel; large size to the rectum. Erick Nieves MD Chest X-Ray 11/26/17 0000 Signed Impressions: Service Date/Time: Sunday, November 26, 2017 12:31 - CONCLUSION: 1. No pneumothorax identified post bronchoscopy. Chencho Stevenson MD Chest CT 11/21/17 0000 Signed Impressions: Service Date/Time: November 18:56 - CONCLUSION: 1. Progression of right hilar mass since July 2016 with encasement of the central bronchi as above and complete obstruction of the right upper lobe bronchus. There is also compression of the superior vena cava and azygos vein and moderate right effusion and partial atelectasis of the right lung as above. Small pericardial effusion. Chencho Stevenson MD Objective Remarks GENERAL: NAD SKIN: Warm and dry. HEAD: Normocephalic. EYES: No scleral icterus. No injection or drainage. NECK: Supple, trachea midline. No JVD or lymphadenopathy. CARDIOVASCULAR: Regular rate and rhythm without murmurs, gallops, or rubs. RESPIRATORY: Breath sounds decrease R>L. No accessory muscle use. GASTROINTESTINAL: Abdomen soft, non-tender, nondistended. MUSCULOSKELETAL: No cyanosis, or edema. BACK: Nontender without obvious deformity. No CVA tenderness. Procedures Bronchoscopy with Biopsy A/P Problem List: (1) Bacteremia due to Gram-positive bacteria ICD Code: R78.81 - Bacteremia (2) Postobstructive pneumonia ICD Code: J18.9 - Pneumonia, unspecified organism (3) Pulmonary mass ICD Code: R91.8 - Other nonspecific abnormal finding of lung field Status: Acute (4) Pleural effusion, right ICD Code: J90 - Pleural effusion, not elsewhere classified Status: Acute (5) Severe sepsis ICD Code: A41.9 - Sepsis, unspecified organism; R65.20 - Severe sepsis without septic shock Status: Acute (6) Small cell lung carcinoma ICD Code: C34.90 - Malignant neoplasm of unspecified part of unspecified bronchus or lung (7) Metastasis from malignant tumor of lung ICD Code: C34.90 - Malignant neoplasm of unspecified part of unspecified bronchus or lung (8) Pleural effusion on right ICD Code: J90 - Pleural effusion, not elsewhere classified Assessment and Plan 62-year-old man with Small cell lung carcinoma Metastasis from lung cancer to the brain Appreciate input from Oncology Radiation oncology consultation pending Palliative care medicine consultation pending Also consult hospice pending palliative care medicine input Right bronchus occlusion Right lung mass likely underlying malignancy Patient with a known history of right lung mass, seen by pulmonary medicine back in 2016 however biopsy was not considered at a time per pulmonary medicine Pulmonary medicine consultation appreciate s/p Bronchoscopy with biopsy positive for small cell lung caner Right pleural effusion Likely secondary to lung cancer US Guided Thoracentesis for drainage Severe sepsis-Resolved Pneumonia postobstructive. Currently on IV Zosyn and monitor culture [id number] cocci Currently on Zosyn appreciate input from infectious disease specialist Repeat blood culture NTD Lactic acid acidosis Resolved COPD exacerbation with respiratory failure s/p IV Solu-Medrol 20mg Q12H and continue PO Prednisone, continue DuoNeb, IV antibiotics, LABA Diabetes type 2 Continue metformin Currently on ISS Hypertension Schizoaffective disorder Hyperlipidemia Dementia Continue treatment for other chronic medical conditions DVT prophylaxis with Lovenox. Jose Callejas MD Nov 29, 2017 11:34
--- NOTE | 2017-11-29 13:26 | PD.ONC.PN ---
Subjective Subjective Remarks Afebrile overnight. Patient resting in bed in nad. No complaints. Objective Data Date Time Temp Pulse Resp B/P (MAP) Pulse Ox O2 Delivery O2 Flow Rate FiO2 11/29/17 12:00 Room Air 11/29/17 12:00 97.9 90 22 133/83 (100) 95 11/29/17 08:00 Room Air 11/29/17 08:00 98.5 86 22 137/73 (94) 95 11/29/17 04:00 98.1 85 20 123/80 (94) 94 11/29/17 00:00 98.4 85 16 117/77 (90) 97 11/28/17 20:00 98.9 92 19 117/95 (102) 96 11/28/17 19:15 97 Room Air 21 11/28/17 18:23 98.4 92 20 127/76 (93) 97 11/28/17 17:26 98.5 102 20 112/69 (83) 96 11/28/17 16:06 98.6 90 20 123/76 (92) 95 11/29/17 11/29/17 11/29/17 06:59 14:59 22:59 Intake Total 300 ml Output Total 750 ml Balance -450 ml Result Diagram: 11/28/17 0556 11/27/17 0624 Administered Medications Medications (Trade) Dose Ordered Sig/Kelsy Route PRN Reason Start Time Stop Time Status Last Admin Dose Admin Piperacillin Sod/ Tazobactam Sod 100 ml @ 200 mls/hr Q6H IV 11/22/17 02:00 11/29/17 08:58 Sodium Chloride (NS Flush) 2 ml UNSCH PRN IV FLUSH FLUSH AFTER USING IV ACCESS 11/22/17 00:15 11/22/17 01:54 Sodium Chloride (NS Flush) 2 ml BID IV FLUSH 11/22/17 09:00 11/29/17 08:58 Albuterol/ Ipratropium (Duoneb Neb) 1 ampule Q2HR NEB PRN NEB wheezing 11/22/17 00:15 11/26/17 11:18 Enoxaparin Sodium (Lovenox Inj) 40 mg Q24H SQ 11/22/17 09:00 11/29/17 08:58 Atenolol (Tenormin) 50 mg BID PO 11/22/17 09:00 11/29/17 08:57 Buspirone HCl (Buspar) 10 mg BID PO 11/22/17 09:00 11/29/17 08:57 Docusate Sodium (Colace) 100 mg BID PO 11/22/17 09:00 11/29/17 08:57 Escitalopram Oxalate (Lexapro) 10 mg DAILY PO 11/22/17 09:00 11/29/17 08:57 Lisinopril (Prinivil) 5 mg DAILY PO 11/22/17 09:00 11/29/17 08:57 Nifedipine (Procardia Xl) 60 mg DAILY PO 11/22/17 09:00 11/29/17 08:57 Artificial Tears (Tears Naturale Opth Soln) 1 drop TID EACH EYE 11/22/17 09:00 11/29/17 08:59 Risperidone (risperDAL) 6 mg HS PO 11/22/17 21:00 11/28/17 20:44 Trihexyphenidyl HCl (Artane) 2 mg TID PO 11/22/17 09:00 11/29/17 08:57 Pravastatin Sodium (Pravachol) 40 mg HS PO 11/22/17 21:00 11/28/17 20:44 Enalaprilat (Vasotec Inj) 2.5 mg Q6H PRN IV PUSH bp>160/90 11/22/17 03:15 11/23/17 14:05 Pantoprazole Sodium (Protonix) 40 mg DAILY PO 11/24/17 09:00 11/29/17 08:57 Acetaminophen (Tylenol) 650 mg Q4H PRN PO Temp > 100.4/pain 1-10 11/23/17 12:30 11/28/17 08:43 Insulin Aspart (NovoLOG SUPPLEMENTAL SCALE) 1 ACHS SLIDING SCALE SQ 11/24/17 12:00 11/28/17 20:44 Metformin HCl (Glucophage) 250 mg BIDPC PO 11/24/17 10:45 11/29/17 08:58 Prednisone (Deltasone) 20 mg DAILY PO 11/28/17 09:00 11/29/17 08:57 Objective Remarks GENERAL: Pleasant middle aged male, sitting up in bed watching TV in nad. SKIN: Warm and dry. HEAD: Normocephalic. EYES: No injection or drainage. NECK: Supple, trachea midline. CARDIOVASCULAR: Regular rate and rhythm RESPIRATORY: Breath sounds equal bilaterally. No accessory muscle use. GASTROINTESTINAL: Abdomen soft, non-tender, nondistended. EXTREMITIES: No cyanosis NEUROLOGICAL: awake, answers questions. tracks with eyes. follows commands. Assessment/Plan Assessment 62y/o male with new diagnosis of SCLC. HPI: *(brought forward for continuity of care): Mr. Taylor was brought into the hospital after he reported symptoms of difficulty breathing and chest pain to the staff at his residence. CT scan revealed a right hilar mass and a right- sided pleural effusion as well as collapse of a segment of the right upper lobe of the lung. Dr. Kapoor performed a bronchoscopy on 11/26/2017 and identified an abnormal area/lesion involving the right upper lobe bronchus. Biopsies of this lesion was obtained and pathologic findings were consistent with small cell carcinoma. h/o Diabetes. Hypertension. tobaccoism. schizoaffective disorder. hyperlipidemia and dementia Plan 1. SCLC: MRI shows mets to the brain. patient would be a poor candidate for aggressive therapy d/t his schizoaffective disorder. we could consider offering palliative radiation for the brain mets, if desired. Palliative care has already discussed with patient's sister and healthcare surrogate, who has elected hospice for her brother. will await hospice consult. Dee Lobo Nov 29, 2017 13:26
--- NOTE | 2017-11-29 14:04 | HHI.IDPN ---
Subjective Subjective Remarks Patient is a 62-year-old male, resides in a [facility], brought into the hospital for evaluation of altered mental status. He apparently has been noted to be more confused. Evaluation revealed increase in size in his right lung mass, and CT showed progression of his tumor. Patient was first found to have a lung mass in 2015. He had a bronchoscopy and cytology did not show any malignancy. Could not really get any information to from the patient as to what kind of follow-up was done at that time. On review of his systems, patient stated that he is short of breath, but could not tell me how long. She has a cough and sometimes brings up yellowish phlegm. He also complained of some pleuritic chest pain and points to the sternal area. Apparently was some episodes of vomiting twice in the last week. He denies any diarrhea or any urinary complaints. There is no mention of any syncopal episode. Since admission he has not been febrile. His WBC is 12,000. 2 blood cultures on admission is now reported as growing gram-positive cocci in pairs and clusters. CT scan of the chest shows progression of the right hilar mass compared to July 2016 with encasement of the central bronchus, and complete obstruction of the right upper lobe bronchus. There is also compression of the superior vena cava and azygous vein. There is moderate right pleural effusion and partial atelectasis of the right lung. Infectious disease consultation has been requested to evaluate the patient with postobstructive pneumonia and bacteremia. Notes reviewed No fever Not SOB CT A/P ok; has large R pleural effusion Brain MRI with multiple mets No new complaint Palliative medicine notes reviewed Hospice has been consulted Antibiotics Current Medications Zosyn Medications (Trade) Dose Ordered Sig/Kelsy Route Start Time Stop Time Status Last Admin Piperacillin Sod/ Tazobactam Sod 100 ml @ 200 mls/hr Q6H IV 11/22/17 02:00 11/27/17 08:56 (NS Flush) 2 ml UNSCH PRN IV FLUSH 11/22/17 00:15 11/22/17 01:54 (NS Flush) 2 ml BID IV FLUSH 11/22/17 09:00 11/27/17 08:54 (Narcan Inj) 0.4 mg UNSCH PRN IV PUSH 11/22/17 00:15 (Duoneb Neb) 1 ampule Q2HR NEB PRN NEB 11/22/17 00:15 11/26/17 11:18 (Lovenox Inj) 40 mg Q24H SQ 11/22/17 09:00 11/27/17 08:53 (Tenormin) 50 mg BID PO 11/22/17 09:00 11/27/17 08:53 (Buspar) 10 mg BID PO 11/22/17 09:00 11/27/17 08:53 (Colace) 100 mg BID PO 11/22/17 09:00 11/27/17 08:53 (Lexapro) 10 mg DAILY PO 11/22/17 09:00 11/27/17 08:53 (Prinivil) 5 mg DAILY PO 11/22/17 09:00 11/27/17 08:53 (Procardia Xl) 60 mg DAILY PO 11/22/17 09:00 11/27/17 08:53 (Tears Naturale Opth Soln) 1 drop TID EACH EYE 11/22/17 09:00 11/27/17 08:54 (risperDAL) 6 mg HS PO 11/22/17 21:00 11/26/17 20:28 (Artane) 2 mg TID PO 11/22/17 09:00 11/27/17 08:53 (Pravachol) 40 mg HS PO 11/22/17 21:00 11/26/17 20:29 (Vasotec Inj) 2.5 mg Q6H PRN IV PUSH 11/22/17 03:15 11/23/17 14:05 (Protonix) 40 mg DAILY PO 11/24/17 09:00 11/27/17 08:53 (Tylenol) 650 mg Q4H PRN PO 11/23/17 12:30 11/23/17 13:24 (Zofran Inj) 4 mg Q6H PRN IV PUSH 11/23/17 12:30 (D50w (Vial) Inj) 50 ml UNSCH PRN IV PUSH 11/24/17 10:45 (Glucagon Inj) 1 mg UNSCH PRN OTHER 11/24/17 10:45 (NovoLOG SUPPLEMENTAL SCALE) 1 ACHS SLIDING SCALE SQ 11/24/17 12:00 11/27/17 08:52 (Glucophage) 250 mg BIDPC PO 11/24/17 10:45 11/27/17 08:53 (Pill Splitter) 1 ea UNSCH PRN OTHER 11/24/17 10:45 Dextrose/Sodium Chloride 1,000 ml @ 0 mls/hr Q0M IV 11/25/17 12:57 (Albuterol Concentrated Neb) 2.5 mg FENCE RIDER NEB 11/25/17 13:00 11/29/17 12:59 Lactated Ringer's 1,000 ml @ 30 mls/hr Q24H PRN IV 11/25/17 16:30 11/28/17 16:29 Sodium Chloride 500 ml @ 30 mls/hr [id number] PRN IV 11/25/17 16:30 11/28/17 16:29 (Lopressor) 25 mg FENCE RIDER PRN PO 11/25/17 16:30 11/28/17 16:29 (Betadine 5% Antisepsis Kit) 1 applic FENCE RIDER PRN EACH NARE 11/25/17 16:30 11/28/17 16:29 (Chlorhexidine 2% Cloth) 3 pack FENCE RIDER PRN TOPICAL 11/25/17 16:30 11/28/17 16:29 (Deltasone) 20 mg DAILY PO 11/28/17 09:00 Lines PIV Past Medical History Hypertension Diabetes COPD Schizoaffective disorder Hyperlipidemia Dementia R hilar mass since 2016 Past Surgical History Appendectomy Hernia repair Allergies: Coded Allergies: aspirin (Unverified Allergy, Severe, 05/21/17) chlorpromazine (Unverified Allergy, Unknown, 05/21/17) haloperidol (Unverified Allergy, Unknown, 05/21/17) Per sister in law - Anita Taylor [phone]. Per patient, she manages his medications and administration for him. Objective . Vital Signs Date Time Temp Pulse Resp B/P (MAP) Pulse Ox O2 Delivery O2 Flow Rate FiO2 11/29/17 12:00 Room Air 11/29/17 12:00 97.9 90 22 133/83 (100) 95 11/29/17 08:00 Room Air 11/29/17 08:00 98.5 86 22 137/73 (94) 95 11/29/17 04:00 98.1 85 20 123/80 (94) 94 11/29/17 00:00 98.4 85 16 117/77 (90) 97 11/28/17 20:00 98.9 92 19 117/95 (102) 96 11/28/17 19:15 97 Room Air 21 11/28/17 18:23 98.4 92 20 127/76 (93) 97 11/28/17 17:26 98.5 102 20 112/69 (83) 96 11/28/17 16:06 98.6 90 20 123/76 (92) 95 . Laboratory Tests Test 11/28/17 05:56 White Blood Count 13.9 TH/MM3 Red Blood Count 3.55 MIL/MM3 Hemoglobin 9.8 GM/DL Hematocrit 29.9 % Mean Corpuscular Volume 84.4 FL Mean Corpuscular Hemoglobin 27.6 PG Mean Corpuscular Hemoglobin Concent 32.7 % Red Cell Distribution Width 17.1 % Platelet Count 626 TH/MM3 Mean Platelet Volume 6.5 FL Neutrophils (%) (Auto) 76.0 % Lymphocytes (%) (Auto) 12.5 % Monocytes (%) (Auto) 10.6 % Eosinophils (%) (Auto) 0.7 % Basophils (%) (Auto) 0.2 % Neutrophils # (Auto) 10.5 TH/MM3 Lymphocytes # (Auto) 1.7 TH/MM3 Monocytes # (Auto) 1.5 TH/MM3 Eosinophils # (Auto) 0.1 TH/MM3 Basophils # (Auto) 0.0 TH/MM3 CBC Comment DIFF FINAL Differential Comment Imaging Last Impressions Chest X-Ray 11/21/17 1538 Signed Impressions: Service Date/Time: November 15:52 - CONCLUSION: 1. Large right pleural effusion with associated diffuse airspace disease throughout the right lung. 2. 4.6 cm masslike opacity in the right upper lung zone in region of smaller mass noted on prior exam. This likely reflects interval enlargement of this mass. Consider CT examination for further evaluation as indicated. Walter Covarrubias MD Chest CT 11/21/17 0000 Signed Impressions: Service Date/Time: November 18:56 - CONCLUSION: 1. Progression of right hilar mass since July 2016 with encasement of the central bronchi as above and complete obstruction of the right upper lobe bronchus. There is also compression of the superior vena cava and azygos vein and moderate right effusion and partial atelectasis of the right lung as above. Small pericardial effusion. Chencho Stevenson MD Physical Exam GENERAL: awake and alert, NAD SKIN: Cool, and moist. No generalized rash HEAD: Atraumatic. Normocephalic. No temporal wasting, or tenderness. EYES: Erda conjunctiva. No petechia or hemorrhage. No scleral icterus. No injection or drainage. EARS, NOSE AND THROAT: Nose without bleeding or purulent nasal discharge. No sinus tenderness. Mucous membranes pink and moist. No oral lesions noted. NECK: Trachea midline. Supple and not tender, no meningeal signs CARDIOVASCULAR: Regular rate and rhythm. No murmurs, rubs or gallops heard RESPIRATORY: Clear to auscultation on L, decreased BS whole R lung. ABDOMEN: Soft, non-tender, nondistended. Bowel sounds present and normoactive. No guarding. No rebound. No organomegaly. EXTREMITIES: No clubbing, cyanosis, or edema. No calf tenderness. Well perfused and warm. NEUROLOGICAL: Non focal PSYCHIATRIC: Flat affect, calm and cooperative. LINE: No evidence of infection Assessment & Plan Remarks IMPRESSION Post obstructive pneumonia due to enlarging R hilar mass encasing bronchus as well as SVC and azygous vein Small Cell CA Bacteremia, 2 diff Coag Neg Staph likely contaminant Hx schizoaffective disorder RECOMMENDATION Change to po Augmentin Hospice evaluation Will sign off Crystal Burrell MD Nov 29, 2017 14:03
[2017-11-29 17:33] LABS: INTERNATIONAL NORMALIZED RATIO 1.1 RATIO; PROTHROMBIN TIME - PATIENT 10.9 SEC (9.8-11.6)
--- NOTE | 2017-11-29 19:00 | HHI.PR ---
Subjective Remarks Post Bronchoscopy . Off O2 . Biopsy is +ve for Small Cell lung CA He is not SOB and no Fever. Objective Vital Signs Date Time Temp Pulse Resp B/P (MAP) Pulse Ox O2 Delivery O2 Flow Rate FiO2 11/29/17 16:00 99.6 91 20 126/68 (87) 94 11/29/17 16:00 Room Air 11/29/17 12:00 Room Air 11/29/17 12:00 97.9 90 22 133/83 (100) 95 11/29/17 08:00 Room Air 11/29/17 08:00 98.5 86 22 137/73 (94) 95 11/29/17 04:00 98.1 85 20 123/80 (94) 94 11/29/17 00:00 98.4 85 16 117/77 (90) 97 11/28/17 20:00 98.9 92 19 117/95 (102) 96 11/28/17 19:15 97 Room Air 21 I/O 11/28/17 11/28/17 11/28/17 11/29/17 11/29/17 11/29/17 07:00 15:00 23:00 07:00 15:00 23:00 Intake Total 580 ml 100 ml 680 ml 300 ml 480 ml Output Total 750 ml Balance 580 ml 100 ml 680 ml -450 ml 480 ml Intake Oral 480 ml 480 ml 200 ml 480 ml IV Total 100 ml 100 ml 200 ml 100 ml Output Urine Total 750 ml # Voids 2 4 2 # Bowel Movements 0 0 1 Result Diagram: 11/28/17 0556 11/27/17 0624 Objective Remarks GENERAL: This is an averagely built middle-aged white male who is in no acute distress. no pallor, no cyanosis, no clubbing. There is no peripheral edema. No lymphadenopathy. HEENT: Head normocephalic. Pupils reactive and equal. Tongue is moist. Nasal mucosa clear. Throat was clear. NECK: Supple. No bruits or thyroid enlargement or lymphadenopathy. CHEST: Decreased excursions with wheezes over the right lung field and diminished breath sounds over the right base. HEART: The heart sounds ARE irregular S1 and S2. No murmur. ABDOMEN: Soft, protuberant without masses. No organomegaly or tenderness. EXTREMITIES: No lesions. No edema. NEUROLOGIC: Reflexes are 1+ with no gross motor deficits. Cranial nerves not tested. SKIN: No lesions are observed. Assessment and Plan Assessment and Plan IMPRESSION 1. Right hilar mass with post obstructive pneumonitis. 2. Chronic obstructive pulmonary disease 3. History of hypertension 4. Small Cell Lung CA 5. Diabetes mellitus type 2 Plan : 1. Cont antibiotics for 8 days 2. Up with help 3. Duoneb nebs tid.PRN 4. Oncology Evaluation 5. Continue anticoagulants 6. OK to go home and F/U with Oncology Eh Kapoor MD Nov 29, 2017 19:00
[2017-11-29] MEDS: RESP: ALBUTEROL 2.5 MG/IPRATROPIUM 0.5 MG NEB (PRN) NEB (19:44)
[2017-11-29] MEDS: AMOXICILLIN/CLAVULANATE K 500 MG TAB PO SCH (22:00)
[2017-11-29] MEDS: PRAVASTATIN SOD 40 MG TAB PO SCH (22:10)
[2017-11-29] MEDS: risperiDONE 3 MG TAB PO SCH (22:10)
[2017-11-30] VITALS: BP 126/77; PULSE 98; RESP 18; TEMP 98.7; O2SAT 95
[2017-11-30 04:00] VITALS: BP 139/84; PULSE 94; RESP 20; TEMP 98.2; O2SAT 95
[2017-11-30] MEDS: AMOXICILLIN/CLAVULANATE K 500 MG TAB PO SCH ×2 (05:14→14:49)
[2017-11-30] MEDS: INSULIN ASPART SUPPLEMENTAL SCALE SQ SCH ×2 (08:00→12:13)
[2017-11-30 08:20] VITALS: BP 135/99; PULSE 106; RESP 17; TEMP 97.8; O2SAT 96
[2017-11-30] MEDS: ENOXAPARIN SODIUM 40 MG/0.4 ML SYRINGE SQ SCH (09:00)
[2017-11-30] MEDS ORDERED: predniSONE 10 MG TAB PO SCH (09:00)
[2017-11-30] MEDS: ATENOLOL 50 MG TAB PO SCH (09:28)
[2017-11-30] MEDS: NIFEdipine 60 MG SUSTAINED RELEASE TAB PO SCH (09:28)
[2017-11-30] MEDS: DOCUSATE SODIUM 100 MG CAP PO SCH (09:29)
[2017-11-30] MEDS: LISINOPRIL 5 MG TAB PO SCH (09:29)
[2017-11-30] MEDS: ESCITALOPRAM OXALATE 10 MG TAB PO SCH (09:29)
[2017-11-30] MEDS: metFORMIN HCL 500 MG TAB PO SCH (09:29)
[2017-11-30] MEDS: SODIUM CHLORIDE 0.9% FLUSH 10 ML FLUSH IV FLUSH SCH (09:29)
[2017-11-30] MEDS: busPIRone HCL 10 MG TAB PO SCH (09:29)
[2017-11-30] MEDS: TRIHEXYPHENIDYL HCL 2 MG TAB PO SCH ×2 (09:29→12:13)
[2017-11-30] MEDS: PANTOPRAZOLE SOD 40 MG DELAYED RELEASE TAB PO SCH (09:29)
[2017-11-30] MEDS: ARTIFICIAL TEARS OPTH SOLN 15 ML BTL EACH EYE SCH ×2 (09:30→12:15)
--- NOTE | 2017-11-30 11:04 | HHI.PR ---
Objective Vitals Vital Signs Date Time Temp Pulse Resp B/P (MAP) Pulse Ox O2 Delivery O2 Flow Rate FiO2 11/30/17 08:20 97.8 106 17 135/99 (111) 96 11/30/17 04:00 98.2 94 20 139/84 (102) 95 11/30/17 00:00 98.7 98 18 126/77 (93) 95 11/29/17 20:00 98.5 98 24 107/60 (76) 95 11/29/17 20:00 96 Nasal Cannula 2.00 11/29/17 19:48 96 Nasal Cannula 2.00 11/29/17 16:00 99.6 91 20 126/68 (87) 94 11/29/17 16:00 Room Air 11/29/17 12:00 Room Air 11/29/17 12:00 97.9 90 22 133/83 (100) 95 I/O 11/29/17 11/29/17 11/29/17 11/30/17 11/30/17 11/30/17 07:00 15:00 23:00 07:00 15:00 23:00 Intake Total 300 ml 480 ml 120 ml Output Total 750 ml 350 ml Balance -450 ml 480 ml -230 ml Intake Oral 200 ml 480 ml 120 ml IV Total 100 ml Output Urine Total 750 ml 350 ml # Voids 2 # Bowel Movements 0 1 0 Result Diagram: 11/28/17 0556 11/27/17 0624 Procedures Bronchoscopy with Biopsy A/P Problem List: (1) Bacteremia due to Gram-positive bacteria ICD Code: R78.81 - Bacteremia (2) Postobstructive pneumonia ICD Code: J18.9 - Pneumonia, unspecified organism (3) Pulmonary mass ICD Code: R91.8 - Other nonspecific abnormal finding of lung field Status: Acute (4) Pleural effusion, right ICD Code: J90 - Pleural effusion, not elsewhere classified Status: Acute (5) Severe sepsis ICD Code: A41.9 - Sepsis, unspecified organism; R65.20 - Severe sepsis without septic shock Status: Acute (6) Small cell lung carcinoma ICD Code: C34.90 - Malignant neoplasm of unspecified part of unspecified bronchus or lung (7) Metastasis from malignant tumor of lung ICD Code: C34.90 - Malignant neoplasm of unspecified part of unspecified bronchus or lung (8) Pleural effusion on right ICD Code: J90 - Pleural effusion, not elsewhere classified Nhi Alvarenga DO Nov 30, 2017 11:04
[2017-11-30 12:00] VITALS: BP 128/72; PULSE 96; RESP 18; TEMP 98.3; O2SAT 95
--- NOTE | 2017-11-30 12:52 | RADRPT ---
EXAM DATE/TIME: 11/30/2017 12:16 [facility] COMPARISON: No previous studies available for comparison. INDICATIONS : Right pleural effusion. MEDICAL HISTORY : Hypercholesterolemia. Hypertension. TIA. COPD. GERD. Kidney stones. SURGICAL HISTORY : Appendectomy. Cardiac catheterization. Cardiac stents. CABG. Hernia repair. ENCOUNTER: Subsequent ACUITY: 2 days PAIN SCORE: 0/10 LOCATION: Right chest MEASUREMENTS: SKIN TO PARIETAL PLEURA: Inadequate fluid SKIN TO MAX SAFE DEPTH: Inadequate fluid ESTIMATED FLUID VOLUME: FLUID COMPOSITION: simple FINDINGS: No marking was performed. CONCLUSION: Small right effusion. Insufficient for thoracentesis. Brandon Lal MD on November 30, 2017 at 12:50 Board Certified Radiologist. This report was verified electronically.
--- NOTE | 2017-12-01 07:50 | HHI.DS ---
Discharge Summary Admission Date Nov 21, 2017 at 8:38 pm Admitting Diagnosis AMS; R Pleural effusion; R lung mass (1) Bacteremia due to Gram-positive bacteria ICD Code: R78.81 - Bacteremia (2) Postobstructive pneumonia ICD Code: J18.9 - Pneumonia, unspecified organism (3) Pulmonary mass ICD Code: R91.8 - Other nonspecific abnormal finding of lung field Status: Acute (4) Pleural effusion, right ICD Code: J90 - Pleural effusion, not elsewhere classified Status: Acute (5) Severe sepsis ICD Code: A41.9 - Sepsis, unspecified organism; R65.20 - Severe sepsis without septic shock Status: Acute (6) Small cell lung carcinoma ICD Code: C34.90 - Malignant neoplasm of unspecified part of unspecified bronchus or lung (7) Metastasis from malignant tumor of lung ICD Code: C34.90 - Malignant neoplasm of unspecified part of unspecified bronchus or lung (8) Pleural effusion on right ICD Code: J90 - Pleural effusion, not elsewhere classified Procedures Bronchoscopy with Biopsy Brief History - From Admission History from ER communication, patient himself, and review of medical records. Patient states that he was brought to hospital because he was not where he used to be. He has been confused. He reports he lives at [facility]. On specific review of system, patient reports of shortness of breath for 1 week duration. Reports he has been coughing a lot. Subjective fevers and chills. Sputum was yellow in color. Vomited twice in the past one week. No diarrhea. No blood in his stool or urine. Denies any falls or syncope. Patient however has baseline schizoaffective disorder per records. When asked about his medical conditions history, he really was not able to give the true history. CBC/BMP: 11/28/17 0556 11/27/17 0624 Significant Findings Laboratory Tests Test 11/29/17 16:40 PE at Discharge GENERAL: NAD SKIN: Warm and dry. HEAD: Normocephalic. EYES: No scleral icterus. No injection or drainage. NECK: Supple, trachea midline. No JVD or lymphadenopathy. CARDIOVASCULAR: Regular rate and rhythm without murmurs, gallops, or rubs. RESPIRATORY: Breath sounds decrease R>L. No accessory muscle use. GASTROINTESTINAL: Abdomen soft, non-tender, nondistended. MUSCULOSKELETAL: No cyanosis, or edema. BACK: Nontender without obvious deformity. No CVA tenderness. Nhi Alvarenga DO Dec 01, 2017 7:50 am
--- NOTE | 2017-12-01 21:21 | RC ---
cc: GRANT HURTADO ZAFAR M.D. DATE OF SERVICE 11/28/2017 REASON FOR CONSULTATION Mr. Taylor is a 62-year-old male see by Dr. Tobin. A copy of this consultation will be forwarded to Dr. Tobin to aid in the medical decision making process. Treatment recommendations will be provided as well. A lung biopsy obtained demonstrates a small cell lung cancer. CT imaging consistent with multiple brain masses with brain enhancing masses. HISTORY Mr. Taylor is a 62-year-old male. Recent right upper lobe lung biopsy 11/26/2017 demonstrates small cell carcinoma. Imaging studies, chest CT 11/21/2017 demonstrating progression of right hilar mass compared to July 2016 with compression to the area of the superior vena cava, , moderate right pleural effusion. CT scan of the head images I reviewed demonstrates multiple metastatic lesions both cerebral hemispheres. Recently seen by Dr. Tobin, medical oncologist. He did have some difficulty breathing as well. He has been in the [place] in the past. Lives in a correction facility. Denies any prior radiation therapy. There is no history of diabetes. PAST MEDICAL / SURGICAL HISTORY 1. Hypertension. 2. Tobacco use. 3. Schizoaffective disorder. 4. Dementia. 5. Hernia repair. 6. Appendectomy. FAMILY HISTORY Noncontributory. SOCIAL HISTORY Smokes. Worked in the [employer]. Lives in a correction facility. ALLERGIES ASPIRIN, CHLORPROMAZINE, HALPERIDOL. MEDICATIONS 1. Zosyn. 2. Atenolol. 3. Enalapril. 4. Lovenox. 5. Lexapro. 6. Lisinopril. 7. Metformin. 8. Nifedipine. 9. Zofran. 10. Pantoprazole. 11. Pravastatin. 12. Prednisone. REVIEW OF SYSTEMS Reports some discomfort in the chest area. Denies pain with swallowing. He is eating though and denies loss of appetite. Reports frontal headaches. PHYSICAL EXAMINATION GENERAL: A pleasant male, comfortable, eating dinner. He does mumble some. He was able to repeat what I asked on direct questioning. HEENT: Extraocular muscles intact. No scleral icterus. EXTREMITIES: No clubbing, cyanosis, and edema. NEUROLOGIC: Alert and oriented, follows commands. LUNGS: No use of accessory muscles . IMAGING Radiographic imaging data, CT images reviewed. I did show him a picture of enhancing metastases on the CT slice. Pathology is small-cell lung cancer. IMPRESSION Mr. Taylor with symptomatic small cell lung cancer with some multiple brain metastases. We discussed whole brain radiation therapy. We discussed CT simulation. We did a standard therapeutic approach would include palliative whole brain radiation therapy. We discussed tiredness, fatigue. He is interested in proceeding with treatment. We will schedule him for CT simulation. I will discuss his case with Dr. Tobin as well. He articulated that he did wish to proceed with treatment as recommended. NCCN guidelines would support whole brain radiation therapy. Grant Hurtado MD Radiation Oncologist DEVANTE/AIME /5:56 PM /8:27 PM
== END 2017-11-30 16:42 | disposition hospice, inpatient (51) | DRG 871 ==
LOC: NEPC 15:08 → NEDA 20:38 → N04B 11-22 01:26
PROVIDERS: ADMIT Hospitalist; ATTEND Hospitalist
PROC: 3E0F7GC Introduction of Other Therapeutic Substance into Respiratory Tract, Via Natural or Artificial Opening (ICD-10-PCS; 2017-11-21)
PROC: 0BB48ZX Excision of Right Upper Lobe Bronchus, Via Natural or Artificial Opening Endoscopic, Diagnostic (ICD-10-PCS; principal; 2017-11-26)
PROC: 0BD78ZX Extraction of Left Main Bronchus, Via Natural or Artificial Opening Endoscopic, Diagnostic (ICD-10-PCS; 2017-11-26)
PROC: 0BDC8ZX Extraction of Right Upper Lung Lobe, Via Natural or Artificial Opening Endoscopic, Diagnostic (ICD-10-PCS; 2017-11-26)
PROC: 0BDG8ZX Extraction of Left Upper Lung Lobe, Via Natural or Artificial Opening Endoscopic, Diagnostic (ICD-10-PCS; 2017-11-26)
PROC: 0BDD8ZX Extraction of Right Middle Lung Lobe, Via Natural or Artificial Opening Endoscopic, Diagnostic (ICD-10-PCS; 2017-11-26)
PROC: 0BD38ZX Extraction of Right Main Bronchus, Via Natural or Artificial Opening Endoscopic, Diagnostic (ICD-10-PCS; 2017-11-26)
DX: A41.9 Sepsis, unspecified organism (principal); C34.01 Malignant neoplasm of right main bronchus; J18.9 Pneumonia, unspecified organism; J96.90 Respiratory failure, unspecified, unspecified whether with hypoxia or hypercapnia; E87.2 Acidosis; J90 Pleural effusion, not elsewhere classified; C79.31 Secondary malignant neoplasm of brain; C77.0 Secondary and unspecified malignant neoplasm of lymph nodes of head, face and neck; J44.0 Chronic obstructive pulmonary disease with (acute) lower respiratory infection; I87.1 Compression of vein; J98.11 Atelectasis; I31.3 Pericardial effusion (noninflammatory); J44.1 Chronic obstructive pulmonary disease with (acute) exacerbation; R65.20 Severe sepsis without septic shock; F03.90 Unspecified dementia, unspecified severity, without behavioral disturbance, psychotic disturbance, mood disturbance, and anxiety; F25.9 Schizoaffective disorder, unspecified; I10 Essential (primary) hypertension; I25.10 Atherosclerotic heart disease of native coronary artery without angina pectoris; E11.9 Type 2 diabetes mellitus without complications; I48.91 Unspecified atrial fibrillation; M19.90 Unspecified osteoarthritis, unspecified site; E78.5 Hyperlipidemia, unspecified; K21.9 Gastro-esophageal reflux disease without esophagitis; Z87.442 Personal history of urinary calculi; Z87.891 Personal history of nicotine dependence; R59.1 Generalized enlarged lymph nodes; Z86.711 Personal history of pulmonary embolism; Z51.5 Encounter for palliative care
CPT/HCPCS: 31623; 70470; 70553; 71045; 71260; 74177; 76604; 80048; 80053; 80202; 81001; 82550; 82552; 82948; 83605; 83690; 83880; 84484; 85025; 85610; 85730; 86403; 87015; 87040; 87070; 87102; 87116; 87205; 87206; 87449; 87804; 88112; 88305; 88341; 88342; 93005; 94640; 94664; 96365; 96368; 96375; A9579; C9113; J0330; J0456; J0696; J1650; J1815; J2370; J2405; J2543; J2920; J2930; J3370; J7040; J7050; J7512; Q9963; Q9967